=== PATIENT | female | born 1955 | race Caucasian/White ===

== ENCOUNTER → 2016-11-27 | Day surgery (SDC) | payer OTHER ==
[2016-11-20 11:20] VITALS: Ht 153.7 cm; Wt 116.4 kg
[~2016-11-27] VITALS: Ht 153.7 cm; Wt 116.4 kg
[~2016-11-27] MED LIST: AMLO-110 PO; CALC1CHW57 PO; CHOL1TAB46 PO; CHOL4POW11 PO; DTR/5 PO; FERR325T5 PO; FOLI1TAB7 PO; HYDR-4330 PO; IBUP-1050 PO; LIDOCAINE HCL 2% 2 ML VIAL (20MG/ML) ONE; MIDAZOLAM HCL 1 MG/ML 2ML VIAL ONE; MULT-506 PO; ONDANSETRON INJ 2 MG/ML 2 ML VIAL ONE; OXYB10TA13 PO; PANT40TA PO; PROPOFOL IV EMULSION 10 MG/ML 20 ML VIAL IV ONE; RMCI; SODIUM CHLORIDE 0.9% 500ML 500 ML IV ONE
[2016-11-27 11:21] VITALS: TEMP 37
--- NOTE | 2016-11-27 11:57 | Endo History and Physical ---
History & Physical Date of Service: November 27, 2016. Chief Complaint: CROHNS DISEASE Referring Physician: DR ELDER History of Present Illness 61 yo CF who presents for colonoscopy secondary to Crohn's Disease. Past Medical History Gastrointestinal Disorder, Reflux, Hypertension, Other Past Surgical History Hx Cardiac Surgery: No Hx Internal Defibrillator: No Hx Pacemaker: No Hx Abdominal Surgery: Yes (SUJATA, HERNIA REPAIR, GASTRIC BYPASS, HYSTER, TUBAL LIGATION) Hx of Implantable Prosthesis: No Hx Post-Op Nausea and Vomiting: No Hx Cancer Surgery: No Hx Thoracic Surgery: No Hx Orthopedic: No Hx Urinary Tract Surgery: Yes (KIDNEY STONE REMOVAL) Family History IBD Social History Smoking Status: Never Smoker Hx Substance Use: No Hx Alcohol Use: No Allergies Coded Allergies: Pneumococcal Vaccine (Verified Allergy, Severe, Severe swell/redness, 11/27) Cephalexin (Verified Allergy, Unknown, FROM [facility], 11/27/16) Was on Cephalexin concurrently when patient had severe swelling/redness when receiving Pneumococcal vaccine Current Medications Reported Home Medications Medications Dose Route/Sig Max Daily Dose Days Date Category Ditropan Xl (Oxybutynin Chloride) 10 Mg Tab 1 Tab PO DAILY 30 11/27/16 Reported Advil (Ibuprofen) 200 Mg Tab 2-4 Tabs PO Q6H PRN 11/20/16 Reported Protonix (Pantoprazole Sodium) 40 Mg Tab 40 Mg PO BID 11/20/16 Reported Vitamin D3 (Cholecalciferol) 5,000 Unit Tab 1 Tab PO QAM 11/21/14 Reported Multivitamin (Multivitamins) Tab 1 Tab PO QAM 11/21/14 Reported Lortab 5-325 mg (Hydrocodone-Acetaminophen) 1 Tab Tab 1 Tab PO Q8H PRN 11/21/14 Reported Ferrous Sulfate 325 Mg Tab 1 Tab PO QAM 11/21/14 Reported Calcium + D (Calcium W/ Vitamins D & K) 1 Chw Chw 1 Tab PO BID 11/21/14 Reported Norvasc (Amlodipine Besylate) 5 Mg Tab 5 Mg PO QAM 11/21/14 Reported Questran (Cholestyramine) 4 Gm Pow 1 Pkt PO QAM 11/21/14 Reported Remicade (Infliximab) 100 Mg/10 Ml Inj Q8WK 11/21/14 Reported Folvite (Folic Acid) 1 Mg Tab 1 Mg PO QAM 11/21/14 Reported Vital Signs Weight (Kilograms): 116.36 Height (Feet): 5 Height (Inches): 0.5 Date Time Temp Pulse Resp B/P Pulse Ox O2 Delivery O2 Flow Rate FiO2 11/27/16 11:21 37.0 75 18 131/73 95 Room Air Physical Exam General Appearance: WD/WN, no apparent distress Respiratory/Chest: Auscultation: breath sounds normal Cardiovascular: Heart Auscultation: RRR Abdomen: Bowel Sounds: normal Inspection & Palpation: soft, non-distended, no tenderness, guarding & rebound Assessment and Plan Assessment: 61 yo CF who presents for colonoscopy secondary to Crohn's Disease. Plan: Proceed with colonoscopy.
--- NOTE | 2016-11-27 12:46 | Discharge Instructions ---
Endoscopy Patient Instructions Date / Procedure(s) Performed November 27, 2016. Colonoscopy Allergy Information Coded Allergies: Pneumococcal Vaccine (Verified Allergy, Severe, Severe swell/redness, 11/27) Cephalexin (Verified Allergy, Unknown, FROM [facility], 11/27/16) Was on Cephalexin concurrently when patient had severe swelling/redness when receiving Pneumococcal vaccine Discharge Date / Findings November 27, 2016. Random colon biopsies Rectal polyp Diverticulosis Internal hemorrhoids Medication Instructions OK to resume all medications today as prescribed. Reported Home Medications Medications Dose Route/Sig Max Daily Dose Days Date Category Ditropan Xl (Oxybutynin Chloride) 10 Mg Tab 1 Tab PO DAILY 30 11/27/16 Reported Advil (Ibuprofen) 200 Mg Tab 2-4 Tabs PO Q6H PRN 11/20/16 Reported Protonix (Pantoprazole Sodium) 40 Mg Tab 40 Mg PO BID 11/20/16 Reported Vitamin D3 (Cholecalciferol) 5,000 Unit Tab 1 Tab PO QAM 11/21/14 Reported Multivitamin (Multivitamins) Tab 1 Tab PO QAM 11/21/14 Reported Lortab 5-325 mg (Hydrocodone-Acetaminophen) 1 Tab Tab 1 Tab PO Q8H PRN 11/21/14 Reported Ferrous Sulfate 325 Mg Tab 1 Tab PO QAM 11/21/14 Reported Calcium + D (Calcium W/ Vitamins D & K) 1 Chw Chw 1 Tab PO BID 11/21/14 Reported Norvasc (Amlodipine Besylate) 5 Mg Tab 5 Mg PO QAM 11/21/14 Reported Questran (Cholestyramine) 4 Gm Pow 1 Pkt PO QAM 11/21/14 Reported Remicade (Infliximab) 100 Mg/10 Ml Inj Q8WK 11/21/14 Reported Folvite (Folic Acid) 1 Mg Tab 1 Mg PO QAM 11/21/14 Reported Provider Instructions Activity Restrictions - No exercising or heavy lifting for 24 hours. - Do not drink alcohol the day of the procedure. - Do not drive a car or operate machinery until the day after the procedure. - Do not make any important decisions or sign important papers in 24 hours after the procedure. Following Day: - Return to full activity which may include returning to work/school. Diet Start your diet with liquids and light foods (jello, soup, juice, toast). Then eat your usual diet if not nauseated. Treatment For Common After Affects For mild abdominal pain, bloating, or excessive gas: - Rest - Eat lightly - Lie on right side Follow-Up Information Follow-up with DR ELDER as scheduled Anesthesia Information What You Should Know You have had a procedure that required some medicine to reduce anxiety and discomfort. This treatment is called moderate sedation. After receiving the treatment, you may be sleepy, but you will be able to breathe on your own. The effects of the treatment may last for several hours. Follow these instructions along with Activity/Diet recommendations noted above: * Do NOT do anything where dizziness or clumsiness would be dangerous. * Rest quietly at home today, then you can be up and about tomorrow. * Have a responsible person stay with you the rest of today. * You may have had an I.V. today. If so, you may take the dressing off later today. Recommendations Call your doctor if: * Trouble breathing * Continuous vomiting for more than 24 hours * Temperature above 101 degrees * Severe abdominal pain or bloating * Pain not relieved by pain medicine ordered * There is increased drainage or redness from any incision * A large amount of rectal bleeding greater than 2-3 tablespoons. (If you had a polyp/s removed or have hemorrhoids, a small amount of blood - from the rectum is to be expected.) * You have any unanswered questions or concerns. IN THE EVENT OF A SERIOUS EMERGENCY, GO TO THE NEAREST EMERGENCY ROOM Your discharge instructions were prepared by provider Abdulaziz Dubon. Patient Instructions Signature Page Audrey Martin Patient (or Guardian) Signature/Date: I have read and understand the instructions given to me by my caregivers. Caregiver/RN/Doctor Signature/Date: The above-named patient and/or guardian has received patient instructions on this date. + Original Patient Signature Page (only) stays with chart. Please make copy for patient.
--- NOTE | 2016-11-27 12:59 | GI REPORT ---
Procedure Date: 11/27/2016 12:05 PM Procedure: Colonoscopy Indications: Disease activity assessment of Crohn's disease of the colon Medicines: Monitored Anesthesia Care Complications: No immediate complications. Estimated Blood Loss: Estimated blood loss: none. Procedure: Pre-Anesthesia Assessment: - Prior to the procedure, a History and Physical was performed, and patient medications and allergies were reviewed. The patient's tolerance of previous anesthesia was also reviewed. The risks and benefits of the procedure and the sedation options and risks were discussed with the patient. All questions were answered, and informed consent was obtained. Prior Anticoagulants: The patient has taken no previous anticoagulant or antiplatelet agents. ASA Grade Assessment: II - A patient with mild systemic disease. After reviewing the risks and benefits, the patient was deemed in satisfactory condition to undergo the procedure. After I obtained informed consent, the scope was passed under direct vision. Throughout the procedure, the patient's blood pressure, pulse, and oxygen saturations were monitored continuously. The scope was introduced through the anus and advanced to the terminal ileum. The colonoscopy was performed without difficulty. The patient tolerated the procedure well. The quality of the bowel preparation was good. The terminal ileum, ileocecal valve, appendiceal orifice, and rectum were photographed. Findings: A 5 mm polyp was found in the rectum. The polyp was sessile. The polyp was removed with a hot snare. Resection and retrieval were complete. Several random biopsies were obtained with cold forceps for histology in the entire colon. Multiple small-mouthed diverticula were found in the sigmoid colon. Non-bleeding internal hemorrhoids were found during retroflexion. The hemorrhoids were small. Impression: - One 5 mm polyp in the rectum, removed with a hot snare. Resected and retrieved. - Diverticulosis in the sigmoid colon. - Non-bleeding internal hemorrhoids. - Several random biopsies were obtained in the entire colon. Recommendation: - Resume previous diet. - Continue present medications. - Repeat colonoscopy for surveillance based on pathology results. - Return to primary care physician as previously scheduled. Abdulaziz Dubon DO 11/27/2016 12:58:00 PM This report has been signed electronically. Note Initiated On: 11/27/2016 12:05 PM I attest to the content of the Intraoperative Record and orders documented therein, exceptions below
[2016-11-27 13:15] VITALS: BP 119/73; PULSE 61; O2SAT 99
--- NOTE | 2016-11-27 13:43 | Anesthesiology Progress Note ---
Anesthesia Post Op Note Date & Time November 27, 2016 at 13:43 Vital Signs Pain Intensity: 0 Vital Signs Past 12 Hours Date Time Temp Pulse Resp B/P Pulse Ox O2 Delivery O2 Flow Rate FiO2 11/27/16 13:15 61 20 119/73 99 Room Air 11/27/16 12:59 65 18 124/63 97 Room Air 11/27/16 12:44 73 18 123/67 98 Room Air 11/27/16 11:21 37.0 75 18 131/73 95 Room Air Notes Mental Status: alert / awake / arousable, participated in evaluation Pt Amnestic to Procedure: Yes Nausea / Vomiting: adequately controlled Pain: adequately controlled Airway Patency, RR, SpO2: stable & adequate BP & HR: stable & adequate Hydration State: stable & adequate Anesthetic Complications: no major complications apparent
== END | disposition home or self-care (01) ==
LOC: C.GI 10:53
PROVIDERS: ATTEND Internal Medicine
DX: K50.90 Crohn's disease, unspecified, without complications (principal); D12.8 Benign neoplasm of rectum; I10 Essential (primary) hypertension; K57.90 Diverticulosis of intestine, part unspecified, without perforation or abscess without bleeding; R58 Hemorrhage, not elsewhere classified; Z98.890 Other specified postprocedural states

== ENCOUNTER 2019-12-25 11:01 | Inpatient (IN) ==
[2019-12-25] MEDS ORDERED: ONDANSETRON INJ 2 MG/ML 2 ML VIAL IV STA (12:32)
[2019-12-25] MEDS ORDERED: CLINDAMYCIN 900 MG in DEXTROSE 5% 50 ML IV ONE (12:32)
[2019-12-25] MEDS ORDERED: MoRPHine SULFATE 4 MG/ML 1 ML CARP\\VIAL IV PRN (12:32)
[2019-12-25] MEDS ORDERED: SODIUM CHLORIDE 0.9% 1000ML 1,000 ML IV ONE (12:32)
--- NOTE | 2019-12-25 12:51 | Emergency Department Note ---
Impression & Plan Bowel perforation, Diffuse abdominal pain, Leukocytosis, Acute dehydration, Hypokalemia ED Provider Note NAME: LEO PUGH AGE: 64 SEX: F : 1955 ARRIVES VIA: Walk-In INFORMANT: [Patient] ED PROVIDER(S): [Ignacio Mcgiure MD] CHIEF COMPLAINT: Abdominal pain HISTORY OF PRESENT ILLNESS: The patient is a 64-year-old female who presents with 24 hours of lower abdo bigg pain. The pain is severe and constant. Movement makes the pain worse. There has been no fever, no nausea or vomiting. No diarrhea. The patient had a colonoscopy on Wednesday, 5 days ago. She states that yesterday she began having pain. She went to the [facility] ED and was diagnosed with a bowel perforation. Her white blood cell count was around 9. They recommended surgery and potential colostomy placement. The patient did not want this care at that hospital and she left. She presents here today for advice from her doctors that she has a relationship with. She has continued pain. She states the pain is no better or worse than yesterday. REVIEW OF SYSTEMS: See HPI for pertinent positives and negatives. A total of ten systems were reviewed and were otherwise negative. PMHx/PSHx: See Below SOCIAL HISTORY: See Below. PHYSICAL EXAM: GENERAL: Patient is in moderate distress from pain. HEENT: No acute trauma, normocephalic atraumatic, mucous membranes moist, no nasal congestion, no scleral icterus. NECK: No stridor, no adenopathy, no meningismus, trachea is midline. LUNGS: Clear to auscultation bilaterally, no wheeze, no rhonchi, breath sounds equal. HEART: Without murmurs gallops or rubs, regular rate and rhythm. ABDOMEN: Soft, she does have significant tenderness and I do believe peritonitis. There is no abdominal distention, no obvious hernias. EXTREMITIES: No cyanosis or edema, full range of motion of all the joints without pain or difficulty, no signs for acute trauma. NEUROLOGIC: Oriented x 3, no acute motor or sensory deficits, no focal weakness. SKIN: No rash, no jaundice, no diaphoresis. DIFFERENTIAL DIAGNOSIS: Appendicitis, ovarian cyst, ovarian torsion, infections, bowel perforation, diverticulitis, UTI, obstruction, mesenteric ischemia, aortic pathology, inflammatory bowel disease, renal colic, PUD, pancreatitis, biliary pathology, hernia, volvulus, constipation, as well as other pathologies. EMERGENCY DEPARTMENT COURSE/PROCEDURES: ECG: Indication was abdominal pain. The ECG shows a sinus rhythm with a PVC. The rate is 92. The QTc is 477. LVH is present. There is no ST elevation. Continuous Cardiac Monitoring: An order was placed for continuous cardiac monitoring. The monitor shows a rate of 91 with sinus rhythm with some PVCs. Critical Care Note: I have personally spent greater than 38 minutes of critical care time in the direct management of this patient. This includes bedside care, interpretation of diagnostic studies, and testing, discussion with consultants, patient, and family members, and other required patient management activities. This 38 minutes is in excess of all separately billable procedures. MEDICAL DECISION MAKING: There is a moderate leukocytosis, this would be consistent with infection. No anemia. Potassium is somewhat low at 2.9. There is some evidence for acute kidney injury with a creatinine of 1.60, this elevation is likely consistent with dehydration. There is no liver enzyme elevation. No evidence for pancreatitis. EKG shows a sinus rhythm, no acute ischemia. Cardiac enzyme testing x1 is not consistent with acute cardiac injury. Chest film shows some atelectasis, there was no obvious free air, no pneumonia. On exam, the patient did have findings of peritonitis. I was able to review the CT reading from yesterday that was done at the outside hospital. Free intra-abdominal air was seen. The patient was aggressively managed given her findings and exam. She was given IV saline for hydration, 1 L was given. She received IV potassium. She was given IV Zofran for nausea, she received IV morphine for pain. She was given a dose of IV clindamycin as empiric antibiotic coverage. The patient is in need of hospitalization and likely surgery. I did speak with GI, I spoke with general surgery. The patient is being evaluated, she will be hospitalized. She is aware of her findings. Case management has been involved. At this point, it is unclear whether the free air is a result of the recent colonoscopy or a result of a perforated diverticulum. Past Med/Surg History Medical History Crohns disease Degenerative disc disease History of anesthesia reaction difficulty waking History of kidney stones Hypertension Osteoarthritis Sleep apnea has testing done 12/12/2019--awaiting results Surgical History History of bilateral cataract extraction History of bilateral tubal ligation History of cholecystectomy History of colonoscopy with polypectomy History of cystoscopy History of nasal cauterization History of Staci fundoplication with hernia repair History of total vaginal hysterectomy Status post trigger finger release right hand Family History Sister Family history of diabetes mellitus Other No family history of adverse response to anesthesia Social History Preferred Language: Ukrainian Communication Ability: Effective Mask Layout Designer Required: No Beliefs That Will Affect Care: None Current Living Situation: Spouse Other Information That Helps Us Care for You: No Feels Safe at Home: Yes Safety Concerns: Feels Safe At This Time Smoking Status: Never smoker Second Hand Exposure: Yes (parents smoked/ smoked) ; Hx Alcohol Use: No Hx Substance Use: No Allergies Allergies Allergy/AdvReac Type Severity Reaction Status Date / Time pneumococcal vaccine Allergy Severe Severe Verified 12/25/19 12:53 swell/redness cephalexin Allergy Intermediate Diarrhea Verified 12/25/19 12:53 Home Meds Home Medications Medication Instructions Recorded Confirmed amlodipine 5 mg tablet 5 mg PO QAM tab 03/21/19 12/25/19 cholecalciferol (vitamin D3) 125 5,000 unit PO QAM tab 03/21/19 12/25/19 mcg (5,000 unit) tablet ferrous sulfate 325 mg (65 mg 325 mg PO QAM tab 03/21/19 12/25/19 iron) tablet folic acid 1 mg tablet 1 mg PO QAM #30 tab 03/21/19 12/25/19 hydrocodone 5 mg-acetaminophen 325 1 tab PO Q8 PRN tab 03/21/19 12/25/19 mg tablet multivitamin 1 tab PO QAM 03/21/19 12/25/19 pantoprazole 40 mg tablet,delayed 40 mg PO BID #60 tab 03/21/19 12/25/19 release infliximab 100 mg intravenous 10 mg/kg IV Q8WK ea 05/15/19 12/25/19 solution Calcium 600 + D(3) 1 cap PO BID 12/13/19 12/25/19 Gentamycin 1 dose INTRANASAL QAM 12/13/19 12/25/19 Toviaz 8 mg PO QAM 12/13/19 12/25/19 cholestyramine (with sugar) 4 g PO QAM 12/13/19 12/25/19 cranberry extract-vitamin C 1 cap PO QAM 12/13/19 12/25/19 mirabegron 50 mg PO QPM 12/13/19 12/25/19 valacyclovir [Valtrex] 1,000 mg PO UD PRN 12/13/19 12/25/19 Results & Data (ED) Vital Signs Vital Signs - 24 hr 12/25/19 11:26 12/25/19 11:36 12/25/19 13:29 Temperature 37.0 C Temperature Source Oral Pulse Rate 95 H Pulse Rate [Finger] 95 H 93 H Pulse Strength [Finger] Respiratory Rate 20 24 17 Respiratory Effort / Characteristics Respiratory Depth Respiratory Pattern Blood Pressure 103/63 Blood Pressure [Right Arm] 129/76 138/69 Blood Pressure Mean 76 Blood Pressure Mean [Right Arm] 93 92 Blood Pressure Position [Right Arm] Pulse Oximetry 95 95 95 Oxygen Delivery Method Room Air Room Air Room Air Sepsis Recent Fever Within 48 Hours No Sepsis New/Unexplained Change in Mental Status No Sepsis Action Taken by Nursing No Action Required 12/25/19 14:34 12/25/19 14:42 Temperature 36.9 C Temperature Source Oral Pulse Rate 94 H Pulse Rate [Finger] 97 H Pulse Strength [Finger] Normal Respiratory Rate 20 20 Respiratory Effort / Characteristics Non-Labored Spontaneous Respiratory Depth Normal Respiratory Pattern Regular Blood Pressure 128/68 Blood Pressure [Right Arm] 132/70 Blood Pressure Mean Blood Pressure Mean [Right Arm] 90 Blood Pressure Position [Right Arm] Lying Pulse Oximetry 93 95 Oxygen Delivery Method Room Air Room Air Sepsis Recent Fever Within 48 Hours Sepsis New/Unexplained Change in Mental Status Sepsis Action Taken by Detention Medications Current Medication List: was personally reviewed by me Laboratory Data Attestation: I reviewed the patient's lab results. Result diagrams: 12/25/19 13:10 12/25/19 13:10 Lab Results 12/25/19 12/25/19 Range/Units 13:10 13:10 WBC 14.75 H (4.8-10.8) K/uL RBC 4.38 (4.2-5.4) M/uL Hgb 13.2 (12.0-16.0) g/dL Hct 39.4 (37-47) % MCV 90.0 (80-100) fL MCH 30.1 (25-34) pg MCHC 33.5 (32-36) g/dL RDW Std Deviation 41.6 (36.4-46.3) fL RDW Coeff of Kody 12.8 (11.5-14.5) % Plt Count 229 (130-400) K/uL MPV 10.0 (7.4-10.4) fL Immature Gran % (Auto) 0.5 % Neut % (Auto) 86.8 % Lymph % (Auto) 7.3 % Maries % (Auto) 5.2 % Eos % (Auto) 0.1 % Baso % (Auto) 0.1 % Immature Gran # (Auto) 0.08 H (0.00-0.02) K/uL Neut # (Auto) 12.81 H (1.4-6.5) K/uL Lymph # (Auto) 1.07 L (1.2-3.4) K/uL Maries # (Auto) 0.76 H (0.11-0.59) K/uL Eos # (Auto) 0.01 (0-0.5) K/uL Baso # (Auto) 0.02 (0-0.2) K/uL Sodium 140 (136-145) mmol/L Potassium 2.9 L (3.5-5.1) mmol/L Chloride 104 (98-107) mmol/L Carbon Dioxide 26 (21-32) mmol/L Anion Gap 10.0 (3-11) BUN 29 H (7-18) mg/dl Creatinine 1.60 H (0.6-1.2) mg/dl Est Cr Clr Drug Dosing 31.3 ml/min Est GFR ( Amer) 39.1 Est GFR (Non-Af Amer) 33.7 BUN/Creatinine Ratio 18.2 (10-20) Glucose 116 H (70-99) mg/dl Calcium 8.8 (8.5-10.1) mg/dl Total Bilirubin 0.9 (0.2-1) mg/dl AST 25 (15-37) U/L ALT 35 (12-78) U/L Alkaline Phosphatase 81 (45-117) U/L Troponin I < 0.015 (0-0.045) ng/ml Total Protein 7.9 (6.4-8.2) gm/dl Albumin 3.2 L (3.4-5.0) gm/dl Globulin 4.7 H (2.5-4.0) gm/dl Albumin/Globulin Ratio 0.7 L (0.9-2) Lipase 72 L (73-393) U/L Administered Medications Lactated Ringer's (Lr) 1,000 mls @ 125 mls/hr IV .Q8H NANCY Stop: 01/24/20 19:59 Last Admin: 12/25/19 20:12 Dose: 125 mls/hr Documented by: [id number] Sodium Chloride (Nss 1000ml) 1,000 mls @ 15 mls/hr IV .Q24H NANCY Stop: 01/08/20 19:59 Last Admin: 12/25/19 20:12 Dose: Not Given Documented by: [id number] Morphine Sulfate () 30 mg IV PRN PRN; Protocol PRN Reason: APPLIQUER ZIGZAG Pain Titration Stop: 01/08/20 18:41 Last Admin: 12/25/19 20:13 Dose: 30 mg Documented by: [id number] Cosigned by: [id number] Discontinued Medications Bupivacaine HCl (Marcaine 0.5% Mpf) Confirm Administered Dose 30 ml .ROUTE .STK- MED ONE Stop: 12/25/19 14:13 Last Admin: 12/25/19 16:48 Dose: Not Given Documented by: [id number] Sodium Chloride (Nss 1000ml) 1,000 mls @ 999 mls/hr IV .Q1H1M ONE Stop: 12/25/19 13:32 Last Admin: 12/25/19 13:15 Dose: 999 mls/hr Documented by: [id number] Clindamycin Phosphate 900 mg/ (Dextrose) 56 mls @ 112 mls/hr IV ONE ONE Stop: 12/25/19 13:01 Last Infusion: 12/25/19 13:46 Dose: 0 mls/hr Documented by: [id number] Admin: 12/25/19 13:15 Dose: 112 mls/hr Documented by: [id number] Potassium Chloride (K Bishnu / Wtr) 10 meq in 100 mls @ 100 mls/hr IV ONE ONE Stop: 12/25/19 14:58 Last Admin: 12/25/19 14:33 Dose: 100 mls/hr Documented by: [id number] Meperidine HCl (Demerol) 25 mg IV NOW STA Stop: 12/25/19 17:27 Last Admin: 12/25/19 17:28 Dose: 25 mg Documented by: [id number] Meperidine HCl (Demerol) Confirm Administered Dose 25 mg .ROUTE .STK-MED ONE Stop: 12/25/19 17:27 Last Admin: 12/25/19 19:06 Dose: Not Given Documented by: [id number] Morphine Sulfate (Morphine Sulfate) 4 mg IV Q15M PRN PRN Reason: Pain Stop: 01/08/20 12:31 Last Admin: 12/25/19 13:27 Dose: 4 mg Documented by: [id number] Ondansetron HCl (Zofran) 4 mg IV NOW STA Stop: 12/25/19 12:33 Last Admin: 12/25/19 13:28 Dose: 4 mg Documented by: [id number] Imaging Data Radiologist's Impression: SINGLE VIEW CHEST CLINICAL HISTORY: Generalized abdominal pain. Assess for intraperitoneal free air FINDINGS: An AP, portable, upright chest radiograph is obtained. No prior studies are available for comparison at the time of dictation. The examination is degraded by portable technique and patient rotation. The cardiomediastinal silhouette is unremarkable. Linear opacities are present at the lung bases, right greater than left. No large pleural effusion or pneumothorax is seen. The skeletal structures are osteopenic. The bony thorax is grossly intact. There is no evidence of intraperitoneal free air below the diaphragm. Cholecystectomy clips are noted in the right upper quadrant. IMPRESSION: Linear opacities are present at the lung bases and likely represent atelectasis. Clinical correlation will be required. Blood Pressure Blood Pressure Findings: Elevated blood pressure Blood Pressure Disposition: further management by hospitalist Discharge Plan Visit Data *Final* Discharge Date/Time: 12/25/19 14:42 Chief Complaint: Referred by Doctor Stated Complaint: COLONOSCOPY COMPLICATIONS - DR CASE REF ED Provider: Ignacio Mcguire Discharge Problem: Bowel perforation, Diffuse abdominal pain, Leukocytosis, Acute dehydration, Hypokalemia Patient Disposition: Admitted As Inpatient Condition: Serious Discharge Instructions Interventions: ED Discharge Assessment Last Done: 12/25/19 14:42 Discharge Problem: Leukocytosis Qualifiers: Leukocytosis type: unspecified Qualified Code(s): D72.829 - Elevated white blood cell count, unspecified
--- NOTE | 2019-12-25 13:05 | History & Physical Report ---
Date of Service December 25, 2019 Assessment & Plan (1) Pneumoperitoneum: Recent colonoscopy but was doing well, ? possible diverticular perforation. Reviewed outside CT with radiology. Given exam findings and increasing WBC, will plan for exploratory laparotomy with likely sigmoid resection and colostomy. History of Present Illness Primary Care Provider: Dara Trejo, DO 64 y/o female h/o Crohn's had screening colonoscopy Tuesday 12/[address] Dubon. She felt fine until Wednesday when she started having abdominal pain. She was eating normally, was having BMs, and had loose BM this AM. She was seen in [place] ED last evening where CT showed free air and she was told she would need surgery with permanent colostomy. She was afraid of that, and wanted to discuss the situation with Dr. Dubon and so she came here to the ED today. Allergies Allergy/AdvReac Type Severity Reaction Status Date / Time pneumococcal vaccine Allergy Severe Severe Verified 12/25/19 12:53 swell/redness cephalexin Allergy Intermediate Diarrhea Verified 12/25/19 12:53 Home Medications Home Medications Medication Instructions Recorded Confirmed Type amlodipine 5 mg tablet 5 mg PO QAM tab 03/21/19 12/25/19 History cholecalciferol (vitamin D3) 125 5,000 unit PO QAM tab 03/21/19 12/25/19 History mcg (5,000 unit) tablet ferrous sulfate 325 mg (65 mg 325 mg PO QAM tab 03/21/19 12/25/19 History iron) tablet folic acid 1 mg tablet 1 mg PO QAM #30 tab 03/21/19 12/25/19 History hydrocodone 5 mg-acetaminophen 325 1 tab PO Q8 PRN tab 03/21/19 12/25/19 History mg tablet multivitamin 1 tab PO QAM 03/21/19 12/25/19 History pantoprazole 40 mg tablet,delayed 40 mg PO BID #60 tab 03/21/19 12/25/19 History release infliximab 100 mg intravenous 10 mg/kg IV Q8WK ea 05/15/19 12/25/19 History solution Calcium 600 + D(3) 1 cap PO BID 12/13/19 12/25/19 History Gentamycin 1 dose INTRANASAL QAM 12/13/19 12/25/19 History Toviaz 8 mg PO QAM 12/13/19 12/25/19 History cholestyramine (with sugar) 4 g PO QAM 12/13/19 12/25/19 History cranberry extract-vitamin C 1 cap PO QAM 12/13/19 12/25/19 History mirabegron 50 mg PO QPM 12/13/19 12/25/19 History valacyclovir [Valtrex] 1,000 mg PO UD PRN 12/13/19 12/25/19 History Past Med/Surg History Medical History Crohns disease Degenerative disc disease History of anesthesia reaction difficulty waking History of kidney stones Hypertension Osteoarthritis Sleep apnea has testing done 12/12/2019--awaiting results Surgical History History of bilateral cataract extraction History of bilateral tubal ligation History of cholecystectomy History of colonoscopy with polypectomy History of cystoscopy History of nasal cauterization History of Staci fundoplication with hernia repair History of total vaginal hysterectomy Status post trigger finger release right hand Family History Sister Family history of diabetes mellitus Other No family history of adverse response to anesthesia Social History Preferred Language: Colombian Communication Ability: Effective Pharmacy Technician Required: No Beliefs That Will Affect Care: None Current Living Situation: Spouse Feels Safe at Home: Yes Smoking Status: Never smoker Second Hand Exposure: Yes (parents smoked/ smoked) ; Hx Alcohol Use: No Hx Substance Use: No Review of Systems Constitutional: no fever, no chills and no anorexia Gastrointestinal: + abdominal pain, + nausea and + vomiting (yesterday) Physical Exam Constitutional: + acute distress Respiratory: normal respiratory effort, lungs clear to auscultation Cardiovascular: Rate/Rhythm: regular rhythm and + tachycardic Gastrointestinal (Abdomen): Inspection/Auscultation: + abdominal surgical scar (laparoscopy) Percussion/Palpation: + abdomen tender, + guarding and abdomen soft Results & Data Results & Data ([facility]) Vital Signs (Past 12 Hours) Vital Signs Temp Pulse Pulse Resp BP BP Pulse Ox 12/25/19 11:36 95 H 24 129/76 95 12/25/19 11:26 37.0 C 95 H 20 103/63 95 Supervising Physician Co-Signing Physician Notes 64-year-old female last Wednesday had colonoscopy without any issues yesterday experience some acute onset abdominal pain was seen down the emergency room at [facility] free air was identified they recommended admission and surgery possible colostomy the patient was afraid of having surgery apparently she related that they told her to call the plaster form maker which he did and the on-call plaster form maker recommended that she call Dr. Dubon which she did and apparently she came into the emergency room today feeling more abdominal pain. On examination she has an acute abdomen generalized tenderness barely touch lower abdomen The CAT scan that was done in [facility] was reviewed it is likely that this is a diverticular problem there is no free air in the upper abdomen and with this in mind we will proceed with exploratory lap and colostomy bowel resection Patient is agreeable to this risk and complications were explained to her including bleeding infection and she would like to proceed accordingly Of note the colonoscopy biopsies which were taken did not show any acute inflammatory bowel disease most of the terminal ileum and the colon PG Care Time/CCT Total # of Minutes Spent Total Time Spent with Patient: Total time spent is greater than 50% in coordination of care (as documented) at patient's floor/unit and/or counseling patient: Coding Level of Care Code None Diagnoses Pneumoperitoneum K66.8
--- NOTE | 2019-12-25 13:09 | XRay Report ---
SINGLE VIEW CHEST CLINICAL HISTORY: Generalized abdominal pain. Assess for intraperitoneal free air FINDINGS: An AP, portable, upright chest radiograph is obtained. No prior studies are available for c omparison at the time of dictation. The examination is degraded by portable technique and patient ro tation. The cardiomediastinal silhouette is unremarkable. Linear opacities are present at the lung b ases, right greater than left. No large pleural effusion or pneumothorax is seen. The skeletal struct ures are osteopenic. The bony thorax is grossly intact. There is no evidence of intraperitoneal free air below the diaphragm. Cholecystectomy clips are noted in the right upper quadrant. IMPRESSION: Linear opacities are present at the lung bases and likely represent atelectasis. Clinical correlation will be required. ACT 112: Negative or not required by law. Electronically signed by: Ignacio Askew M.D. 12/25/2019 1:07 PM
[2019-12-25 13:29] LABS: Basophils # (auto) 0.02 K/uL (0-0.2); Basophils % (auto) 0.1 %; Eosinophils # (auto) 0.01 K/uL (0-0.5); Eosinophils % (auto) 0.1 %; Hematocrit (blood only) 39.4 % (37-47); Hemoglobin 13.2 g/dL (12.0-16.0); Immature Granulocytes # (auto) 0.08 K/uL (0.00-0.02); Immature Granulocytes % (auto) 0.5 %; Lymphocytes # (auto) 1.07 K/uL (1.2-3.4); Lymphocytes % (auto) 7.3 %; Mean Corpuscular Hemoglobin 30.1 pg (25-34); Mean Corpuscular Hgb Conc 33.5 g/dL (32-36); Monocytes # (auto) 0.76 K/uL (0.11-0.59); Monocytes % (auto) 5.2 %; Neutrophils # (auto) 12.81 K/uL (1.4-6.5); Neutrophils % (auto) 86.8 %; Platelet Count 229 K/uL (130-400); RDW Coefficient of Variation 12.8 % (11.5-14.5); RDW Standard Deviation 41.6 fL (36.4-46.3); Red Blood Count 4.38 M/uL (4.2-5.4); White Blood Count 14.75 K/uL (4.8-10.8)
[2019-12-25 13:44] LABS: Alanine Aminotransferase 35 U/L (12-78); Albumin Level 3.2 gm/dl (3.4-5.0); Aspartate Aminotransferase 25 U/L (15-37); BUN Creatinine Ratio 18.2 (10-20); Blood Urea Nitrogen 29 mg/dl (7-18); Calcium 8.8 mg/dl (8.5-10.1); Carbon Dioxide 26 mmol/L (21-32); Chloride 104 mmol/L (98-107); Creatinine Clr Calc Pharmacy 31.3 ml/min; Est GFR (African American) 39.1; Est GFR (Non-African American) 33.7; Glucose 116 mg/dl (70-99); Lipase 72 U/L (73-393); Potassium 2.9 mmol/L (3.5-5.1); Sodium 140 mmol/L (136-145)
[2019-12-25 13:49] LABS: Albumin Globulin Ratio 0.7 (0.9-2); Alkaline Phosphatase 81 U/L (45-117); Bilirubin,Total 0.9 mg/dl (0.2-1); Globulin 4.7 gm/dl (2.5-4.0); Total Protein 7.9 gm/dl (6.4-8.2); Troponin I < 0.015 ng/ml (0-0.045)
[2019-12-25] MEDS ORDERED: PROPOFOL IV EMULSION 10 MG/ML 20 ML VIAL IV ONE (13:55)
[2019-12-25] MEDS ORDERED: fentaNYL citrate 100 MCG/2 ML VIAL ONE (13:55)
[2019-12-25] MEDS ORDERED: ONDANSETRON INJ 2 MG/ML 2 ML VIAL ONE (13:55)
[2019-12-25] MEDS ORDERED: DEXAMETHASONE SOD INJ 4 MG/ML VIAL ONE (13:55)
[2019-12-25] MEDS ORDERED: ROCURONIUM BROMIDE 10 MG/ML 5 ML VIAL IV ONE (13:55)
[2019-12-25] MEDS ORDERED: LIDOCAINE HCL 2% 2 ML VIAL/AMP(20MG/ML) INFIL ONE (13:55)
[2019-12-25] MEDS ORDERED: MIDAZOLAM HCL 1 MG/ML 2ML VIAL ONE (13:55)
[2019-12-25] MEDS ORDERED: POTASSIUM CHLORIDE / WTR 10 MEQ/100 ML PLCT IV ONE (13:59)
--- NOTE | 2019-12-25 14:04 | Anesthesiology Consultation ---
Date of Service December 25, 2019 Covid test negative from Assessment & Plan (1) Encounter for pre-operative examination: History Surgery Operation Date: 12/25/19 08:50 Proposed Procedures p Exploratory Laparotomy possible Colostomy - Alberto Beckham MD Height/Weight Height: 5 ft Weight: 71.4 kg Allergies Allergy/AdvReac Type Severity Reaction Status Date / Time pneumococcal vaccine Allergy Severe Severe Verified 12/25/19 12:53 swell/redness cephalexin Allergy Intermediate Diarrhea Verified 12/25/19 12:53 Medications Home Medications Medication Instructions Recorded Confirmed Last Taken amlodipine 5 mg tablet 5 mg PO QAM tab 03/21/19 12/25/19 12/23/19 cholecalciferol (vitamin D3) 125 5,000 unit PO QAM tab 03/21/19 12/25/19 12/23/19 mcg (5,000 unit) tablet ferrous sulfate 325 mg (65 mg 325 mg PO QAM tab 03/21/19 12/25/19 12/23/19 iron) tablet folic acid 1 mg tablet 1 mg PO QAM #30 tab 03/21/19 12/25/19 12/23/19 hydrocodone 5 mg-acetaminophen 325 1 tab PO Q8 PRN tab 03/21/19 12/25/19 Unknown mg tablet multivitamin 1 tab PO QAM 03/21/19 12/25/19 12/23/19 pantoprazole 40 mg tablet,delayed 40 mg PO BID #60 tab 03/21/19 12/25/19 12/23/19 release infliximab 100 mg intravenous 10 mg/kg IV Q8WK ea 05/15/19 12/25/19 10/20/19 solution Calcium 600 + D(3) 1 cap PO BID 12/13/19 12/25/19 12/23/19 Gentamycin 1 dose INTRANASAL QAM 12/13/19 12/25/19 12/23/19 Toviaz 8 mg PO QAM 12/13/19 12/25/19 12/23/19 cholestyramine (with sugar) 4 g PO QAM 12/13/19 12/25/19 12/23/19 cranberry extract-vitamin C 1 cap PO QAM 12/13/19 12/25/19 12/23/19 mirabegron 50 mg PO QPM 0612/25/19 12/23/19 valacyclovir [Valtrex] 1,000 mg PO UD PRN 12/13/19 12/25/19 12/23/19 Active Medications Generic Name Dose Route Start Last Admin Trade Name Freq PRN Reason Stop Dose Admin Potassium Chloride 10 meq in 100 mls @ 100 mls/hr 12/25/19 13:59 12/25/19 14:33 K Bishnu / Wtr IV 12/25/19 14:58 100 mls/hr ONE ONE Administration Morphine Sulfate 4 mg 12/25/19 12:32 12/25/19 13:27 Morphine Sulfate IV 01/08/20 12:31 4 mg Q15M PRN Administration Pain Past Medical History Medical History Crohns disease Degenerative disc disease History of anesthesia reaction difficulty waking History of kidney stones Hypertension Osteoarthritis Sleep apnea has testing done 12/12/2019--awaiting results Past Family History Family History Sister Family history of diabetes mellitus Other No family history of adverse response to anesthesia Past Surgical History Surgical History History of bilateral cataract extraction History of bilateral tubal ligation History of cholecystectomy History of colonoscopy with polypectomy History of cystoscopy History of nasal cauterization History of Staci fundoplication with hernia repair History of total vaginal hysterectomy Status post trigger finger release right hand Social History Smoking Status: Never smoker Hx Alcohol Use: No Hx Substance Use: No substance use type: does not use Physical Exam Vital Signs Last Vital Signs Temp 36.9 C 12/25/19 14:34 Pulse 97 H 12/25/19 14:34 Resp 20 12/25/19 14:34 BP 132/70 12/25/19 14:34 Pulse Ox 93 12/25/19 14:34 Testing Laboratory Results 12/25/19 13:10 12/25/19 13:10 Electrocardiogram Date: 12/25/19 Sinus rhythm with occasional Premature ventricular complexes Possible Left atrial enlargement Left ventricular hypertrophy Nonspecific T wave abnormality Abnormal ECG No previous ECGs available Chest X-Ray Date: 12/25/19 Linear opacities are present at the lung bases and likely represent atelectasis. Clinical correlation will be required.
[2019-12-25] MEDS ORDERED: BUPIVACAINE 0.5 % 5 MG/1 ML MPF 30ML VIAL ONE (14:12)
[2019-12-25] MEDS ORDERED: fentaNYL citrate 100 MCG/2 ML VIAL IV PRN (14:41)
[2019-12-25] MEDS ORDERED: HYDROmorphone INJ 1 MG/ML SYRINGE IV PRN (14:41)
[2019-12-25] MEDS ORDERED: ePHEDrine sulfate 50 MG/ML AMP IV PRN (14:41)
[2019-12-25] MEDS ORDERED: ONDANSETRON INJ 2 MG/ML 2 ML VIAL IV PRN (14:41)
[2019-12-25] MEDS ORDERED: ATROPINE SULFATE 0.1 MG/ML 10ML SYR IV PRN (14:41)
--- NOTE | 2019-12-25 15:34 | Electrocardiogram Report ---
Test Reason : Blood Pressure : / mmHG Vent. Rate : 092 BPM Atrial Rate : 092 BPM P-R Int : 126 ms QRS Dur : 094 ms QT Int : 386 ms P-R-T Axes : 030 -20 -04 degrees QTc Int : 477 ms Sinus rhythm with occasional Premature ventricular complexes Possible Left atrial enlargement Left ventricular hypertrophy Nonspecific T wave abnormality Poor R wave progression, consider anterior OH vs. lead placement vs. LVH Abnormal ECG No previous ECGs available Confirmed by Jeramie Canas ([id number]) on 12/25/2019 3:34:09 PM Referred By: Abdulaziz Case Confirmed By:Rickie Canas
--- NOTE | 2019-12-25 16:44 | Post Operative Brief Note ---
PG Immediate Post Op with CF Date of Surgery December 25, 2019 Pre & Post Diagnosis Operation Date: 12/25/19 08:50 Pre-Op Diagnosis: Pneumoperitoneum Post-Op Diagnosis: Pneumoperitoneum I identified the patient and participated in the time-out.: Yes Procedure Operation Date: 12/25/19 08:50 Actual Procedures p Exploratory Laparotomy; open Resection of Sigmoid Colon; creation of colostomy(Not Applicable) - Alberto Beckham MD Surgeon Alberto Beckham MD Organizational Development Director b Kassie tovar Estimated Blood Loss 150 Findings Consistent with Post-Op Diagnosis Specimens Specimen Description: Culture 1. Urine for culture 2. Peritoneal fluid for culture Permanent Specimen: A: Sigmoid Colon: silk is possible site of perforation Drains Pastor Drain ([id number]), Kamara Catheter and Chandler Drain
--- NOTE | 2019-12-25 17:01 | Operative Report ---
PG Post Operative Report Pre & Post Diagnosis Operation Date: 12/25/19 08:50 Pre-Op Diagnosis: Pneumoperitoneum Post-Op Diagnosis: Pneumoperitoneum I identified the patient and participated in the time-out.: Yes Procedure Operation Date: 12/25/19 08:50 Actual Procedures p Exploratory Laparotomy; open Resection of Sigmoid Colon; creation of colostomy(Not Applicable) - Alberto Beckham MD Patient was brought into the operating room theater general endotracheal anesthesia Kamara catheter was inserted the abdomen was prepped Betadine solution properly draped a timeout was had patient was identified we made a midline incision below the umbilicus deepened through subcutaneous tissue the incision went to this almost to the symphysis pubis we entered the peritoneal cavity we were met with the sigmoid colon which there was no gross contamination no free fluid that was appreciated going into the abdomen at this point we palpated the sigmoid colon and done in the gutter below the white line of Toldt there is seem to be exudate along in that area going down towards the pelvis the similarly exudate was on top of the sigmoid colon extending to an area that it feels quite inflamed with placed the Bookwalter retraction to expose the area more and we can palpate all the way down the pelvis and towards the rectal area which she had a redundant sigmoid colon we were able then to bring this all up into the wound and inspect the sigmoid colon which was quite indurated in the midportion which reflected the area that was adherent most likely to the lateral peritoneal wall just proximal to the pelvic inlet I could not see any perforation per se there was this fibrin exudate multiple areas I tried squeezing the sigmoid colon nothing really came out there I suspected the possibility that patient may have sealed off the area we went on and inspected the descending colon which was grossly normal palpated normal there is no induration there was no other fluid in the abdomen other than that serous fibrinous exudate that we have mentioned at this point I elected to resect the sigmoid colon which we did she had we chose an area which was proximal to the indurated area using a RAHEL stapler we divided that then took the mesentery close to the colon down to just proximal to the rectum where at that time use a TA 55 stapler across and resected the sigmoid colon the staple line 1 week attached to the anterior abdominal wall at about four 5 interrupted 2 0 Prolene that we would be able to identify that when we closed the colostomy in the future we irrigated the area quite satisfactory there was some oozing that we would control with silk 3 oh silks and also ties is in the mesentery when we were done it was quite dry at this point we then created a opening third the way between the umbilicus and anterior superior iliac crest on the left side probably about $0.25-$0.50 piece of skin and subcutaneous tissue anterior fascia with placed cruciate and went into the rectus abdominis into the abdomen we placed 3 fingers that we could accommodate easily the descending colon is a colostomy we brought the descending the colon out into the wound make sure there was probably oriented held in place with intestinal clamp the abdomen was then closed irrigated placed the omentum down into the pelvic area I placed my hand to feel the NG tube which is in proper position we did irrigate the abdomen quite liberally with a couple liters. I elected to drain the pelvic area with a 19 Pastor drain which was brought out through the right lower quadrant done in the pelvis attaching skin edge with 2-0 silk suture the abdominal incision was closed with a continuous fashion and 0 PDS continuous fashion quarter Ramo drain was placed in the subcu attention distally and proximal to the incision with 3-0 silk staple line for its close the skin at this point we then resected part of the descending colon on the skin level and matured the colostomy using 3-0 interrupted chromic suture colostomy was quite viable colostomy bag was placed the procedure tolerated well by the patient estimated blood loss approximately 150 cc efra tovar was present throughout the procedure and help to retraction exposure wound closure On a side table at the end of the procedure I inspected the sigmoid colon that we had resected as stated they were sitting in the midportion a very indurated area there was one area that seemed to be more prominent whether or not this was a diverticular that a perforated and sealed off I marked that with a long silk suture and I will review that with the pathologist tomorrow. Surgeon Alberto Beckham MD Poll Watcher efra tovar Estimated Blood Loss 150 Findings Consistent with Post-Op Diagnosis Specimens sigmoid colon Description of Procedure merda I attest to the content of the Intraoperative Record and any orders documented therein. Any exceptions are noted below.
[2019-12-25] MEDS ORDERED: GLYCOPYRROLATE 0.2 MG/ML VIAL ONE (17:13)
[2019-12-25] MEDS ORDERED: NEOSTIGMINE METHYLSULFATE 5 MG/5 ML SYR ONE (17:13)
[2019-12-25] MEDS ORDERED: MEPERIDINE HCL 25 MG/ML CARP/VIAL IV STA (17:26)
[2019-12-25] MEDS ORDERED: MEPERIDINE HCL 25 MG/ML CARP/VIAL ONE (17:26)
--- NOTE | 2019-12-25 18:03 | Anesthesiology Progress Note ---
Date of Service December 25, 2019 Anesthesia Post Procedure Vital Signs Vital Signs: Temp Pulse Pulse Pulse Resp BP BP 12/25/19 17:40 94 H 13 104/71 12/25/19 17:30 99 H 16 127/81 12/25/19 17:20 90 15 129/71 12/25/19 17:10 94 H 17 117/71 12/25/19 17:04 37.0 C 91 H 17 131/46 L 12/25/19 14:42 94 H 20 128/68 12/25/19 14:34 36.9 C 97 H 20 132/70 12/25/19 13:29 93 H 17 138/69 12/25/19 11:36 95 H 24 129/76 12/25/19 11:26 37.0 C 95 H 20 103/63 Pulse Ox 12/25/19 17:40 94 12/25/19 17:30 94 12/25/19 17:20 97 12/25/19 17:10 96 12/25/19 17:04 97 12/25/19 14:42 95 12/25/19 14:34 93 12/25/19 13:29 95 12/25/19 11:36 95 12/25/19 11:26 95 Pain Intensity Left Lower Abdomen: Pain Intensity: 2 Abdomen: Pain Intensity: 2 Transfer of Care Handoff Completed per policy Notes Mental Status: alert / awake / arousable Patient Amnestic to Procedure: Yes Nausea / Vomiting: adequately controlled Pain: adequately controlled Airway Patency, RR, SpO2: stable & adequate BP & HR: stable & adequate Hydration State: stable & adequate Anesthetic Complications: no major complications apparent and Pt Satisfied with anesthetic care Notes: The patient is awake and comfortable. Her postop vital signs are the same as her preoperative values.
[2019-12-25] MEDS ORDERED: ACETAMINOPHEN 1,000 MG/100 ML VIAL IV PRN (18:42)
[2019-12-25] MEDS ORDERED: NALOXONE HCL 0.4 MG/1 ML VIAL/CARP IV PRN (18:42)
[2019-12-25] MEDS: LACTATED RINGER'S 1,000 ML IV SCH (20:12)
[2019-12-25] MEDS: SODIUM CHLORIDE 0.9% 1000ML 1,000 ML IV SCH (20:12)
[2019-12-25] MEDS: MORPHINE SULFATE PCA 30 MG/30 ML IV PRN (20:13)
[2019-12-25] MEDS: metroNIDAZOLE 500 MG/100 ML BAG IV SCH (21:31)
[2019-12-25] MEDS: ONDANSETRON INJ 2 MG/ML 2 ML VIAL IV PRN (21:32)
[2019-12-25] MEDS: CIPROFLOXACIN / D5W 400 MG/200 ML BAG IV SCH (21:32)
[2019-12-25 22:35] LABS: Appearance Urine Clear (Clear); Bacteria Urine Automated Negative (Negative); Bilirubin Urine Negative (Negative); Blood Urine Negative (Negative); Color Urine Dark Yellow; Epithelial Cell Urine Auto 20-30 /lpf (0-5); Glucose Urine UA Negative (Negative); Ketones Urine 1+ (Negative); Leukocyte Esterase Urine Negative (Negative); Nitrite Urine Negative (Negative); Protein Urine 1+ (Negative); RBC Urine Automated 0-4 /hpf (0-4); Specific Gravity Urine 1.023 (1.000-1.030); Urobilinogen Urine Negative (Negative); pH Urine 5.5 (4.5-7.5)
[2019-12-26] MEDS: LACTATED RINGER'S 1,000 ML IV SCH ×3 (03:38→20:10)
[2019-12-26] MEDS: ONDANSETRON INJ 2 MG/ML 2 ML VIAL IV PRN ×3 (03:46→22:21)
[2019-12-26] MEDS: metroNIDAZOLE 500 MG/100 ML BAG IV SCH ×3 (05:43→22:53)
--- NOTE | 2019-12-26 06:19 | Surgery Progress Note ---
Date of Service December 26, 2019 Assessment & Plan (1) Pneumoperitoneum: Recent colonoscopy but was doing well, ? possible diverticular perforation. Reviewed outside CT with radiology. Given exam findings and increasing WBC, will plan for exploratory laparotomy with likely sigmoid resection and colostomy. 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 heavy lifting Physical Exam Physical Exam: She is alert coherent no distress NG drainage slightly bilious minimal amount The abdomen slightly distended dressing is dry the colostomy is viable and has some output Results & Data Vital Signs (Past 12 Hours) Vital Signs Temp Pulse Resp BP Pulse Ox 12/26/19 01:15 36.9 C 94 H 18 113/71 95 12/26/19 00:15 36.8 C 95 H 16 117/72 94 12/25/19 23:15 36.9 C 88 18 122/77 96 12/25/19 22:15 36.8 C 99 H 24 118/72 96 12/25/19 20:31 36.5 C 91 H 16 134/77 97 12/25/19 19:34 87 16 123/76 96 12/25/19 18:56 36.6 C 93 H 16 116/73 92 12/25/19 18:30 36.6 C 91 H 16 124/76 95 PG Care Time/CCT Total # of Minutes Spent Total Time Spent with Patient: Total time spent is greater than 50% in coordination of care (as documented) at patient's floor/unit and/or counseling patient: Coding Level of Care Code None Diagnoses Pneumoperitoneum K66.8
[2019-12-26 06:36] LABS: Basophils # (auto) 0.01 K/uL (0-0.2); Basophils % (auto) 0.1 %; Eosinophils # (auto) 0.02 K/uL (0-0.5); Eosinophils % (auto) 0.2 %; Hematocrit (blood only) 32.9 % (37-47); Hemoglobin 10.8 g/dL (12.0-16.0); Immature Granulocytes # (auto) 0.02 K/uL (0.00-0.02); Immature Granulocytes % (auto) 0.2 %; Lymphocytes # (auto) 0.81 K/uL (1.2-3.4); Lymphocytes % (auto) 7.1 %; Mean Corpuscular Hemoglobin 29.9 pg (25-34); Mean Corpuscular Hgb Conc 32.8 g/dL (32-36); Mean Corpuscular Volume 91.1 fL (80-100); Mean Platelet Volume 10.1 fL (7.4-10.4); Monocytes # (auto) 0.57 K/uL (0.11-0.59); Neutrophils % (auto) 87.4 %; Platelet Count 208 K/uL (130-400); RDW Standard Deviation 43.3 fL (36.4-46.3); Red Blood Count 3.61 M/uL (4.2-5.4); White Blood Count 11.33 K/uL (4.8-10.8)
[2019-12-26 07:13] LABS: BUN Creatinine Ratio 25.7 (10-20); Creatinine Clr Calc Pharmacy 67.7 ml/min; Est GFR (African American) 99.2; Est GFR (Non-African American) 85.6; Potassium 3.5 mmol/L (3.5-5.1)
[2019-12-26] MEDS: CIPROFLOXACIN / D5W 400 MG/200 ML BAG IV SCH ×2 (08:31→20:11)
[2019-12-26] MEDS: MORPHINE SULFATE PCA 30 MG/30 ML IV PRN (08:46)
[2019-12-26] MEDS: POTASSIUM CHLORIDE / WTR 10 MEQ/100 ML PLCT IV SCH ×2 (10:26→11:35)
[2019-12-26] MEDS: PANTOprazole 40 MG in SYRINGE 0 ML IV SCH (10:27)
[2019-12-26] MEDS: SODIUM CHLORIDE 0.9% 1000ML 1,000 ML IV SCH (20:16)
[2019-12-27] MEDS: ONDANSETRON INJ 2 MG/ML 2 ML VIAL IV PRN ×4 (03:24→21:34)
[2019-12-27 05:16] LABS: Basophils # (auto) 0.01 K/uL (0-0.2); Basophils % (auto) 0.1 %; Eosinophils # (auto) 0.12 K/uL (0-0.5); Eosinophils % (auto) 1.4 %; Hematocrit (blood only) 31.4 % (37-47); Hemoglobin 10.4 g/dL (12.0-16.0); Immature Granulocytes # (auto) 0.03 K/uL (0.00-0.02); Immature Granulocytes % (auto) 0.4 %; Lymphocytes # (auto) 0.83 K/uL (1.2-3.4); Lymphocytes % (auto) 9.8 %; Mean Corpuscular Hemoglobin 30.2 pg (25-34); Mean Corpuscular Hgb Conc 33.1 g/dL (32-36); Mean Corpuscular Volume 91.3 fL (80-100); Mean Platelet Volume 10.1 fL (7.4-10.4); Monocytes # (auto) 0.49 K/uL (0.11-0.59); Monocytes % (auto) 5.8 %; Neutrophils # (auto) 7.02 K/uL (1.4-6.5); Neutrophils % (auto) 82.5 %; Platelet Count 184 K/uL (130-400); RDW Coefficient of Variation 12.6 % (11.5-14.5); RDW Standard Deviation 42.4 fL (36.4-46.3); Red Blood Count 3.44 M/uL (4.2-5.4)
[2019-12-27] MEDS: metroNIDAZOLE 500 MG/100 ML BAG IV SCH ×3 (05:47→23:29)
[2019-12-27] MEDS: LACTATED RINGER'S 1,000 ML IV SCH (05:56)
[2019-12-27 06:12] LABS: BUN Creatinine Ratio 14.4 (10-20); Calcium 7.9 mg/dl (8.5-10.1); Creatinine Clr Calc Pharmacy 69.6 ml/min; Est GFR (African American) 102.6; Est GFR (Non-African American) 88.5; Potassium 3.6 mmol/L (3.5-5.1)
--- NOTE | 2019-12-27 07:46 | Surgery Progress Note ---
Date of Service December 27, 2019 Assessment & Plan (1) Pneumoperitoneum: POD#2 ex-lap with sigmoid resection and creation of colostomy Pt tolerated NGT out, will continue clear liquids for now Will start fluids w/ potassium supplementation Kamara can be removed today Wounds c/d/i, ostomy viable with some thin liquid in bag, MARILYN serosang (80cc) Encourage out out bed with ambulation today Pt seen and examined with Dr. Beckham Subjective Patient says she feels exhausted, due to noise interruptions at night. Otherwise she is doing okay. Tolerated small amount of clears yesterday. Physical Exam Physical Exam: awake/alert Gastrointestinal (Abdomen): Inspection/Auscultation: + abdomen distended (mild), + abdominal surgical incision (c/d/i with surgical marilou and sanaz in place) and + abdominal surgical drain present (serosang) Percussion/Palpation: abdomen soft + stoma pink & viable, some thin fluid in bag Results & Data Vital Signs (Past 12 Hours) Vital Signs Temp Pulse Resp BP BP Pulse Ox 12/27/19 07:27 36.7 C 80 18 121/77 95 12/27/19 03:23 36.7 C 95 H 20 135/83 92 12/26/19 23:05 36.9 C 95 H 18 120/76 92 12/26/19 20:50 36.8 C 97 H 18 127/75 92 PG Care Time/CCT Total # of Minutes Spent Total Time Spent with Patient: Total time spent is greater than 50% in coordination of care (as documented) at patient's floor/unit and/or counseling patient: Coding Level of Care Code None Diagnoses Pneumoperitoneum K66.8
[2019-12-27] MEDS: CIPROFLOXACIN / D5W 400 MG/200 ML BAG IV SCH ×2 (08:37→21:17)
[2019-12-27] MEDS: D5W AND 1/2NSS + 20MEQ KCL 20 MEQ/1,000 ML BAG IV SCH ×2 (09:34→21:15)
[2019-12-27] MEDS: PANTOprazole 40 MG in SYRINGE 0 ML IV SCH (11:37)
[2019-12-27] MEDS: SODIUM CHLORIDE 0.9% 1000ML 1,000 ML IV SCH (21:18)
[2019-12-28] MEDS: ONDANSETRON INJ 2 MG/ML 2 ML VIAL IV PRN ×4 (03:08→23:20)
[2019-12-28] MEDS: metroNIDAZOLE 500 MG/100 ML BAG IV SCH ×3 (05:29→22:36)
[2019-12-28 07:31] LABS: Basophils # (auto) 0.01 K/uL (0-0.2); Basophils % (auto) 0.2 %; Eosinophils # (auto) 0.13 K/uL (0-0.5); Eosinophils % (auto) 2.3 %; Hematocrit (blood only) 31.3 % (37-47); Hemoglobin 10.2 g/dL (12.0-16.0); Immature Granulocytes # (auto) 0.05 K/uL (0.00-0.02); Immature Granulocytes % (auto) 0.9 %; Lymphocytes # (auto) 0.79 K/uL (1.2-3.4); Lymphocytes % (auto) 13.7 %; Mean Corpuscular Hemoglobin 29.7 pg (25-34); Mean Corpuscular Hgb Conc 32.6 g/dL (32-36); Mean Platelet Volume 9.8 fL (7.4-10.4); Monocytes # (auto) 0.56 K/uL (0.11-0.59); Monocytes % (auto) 9.7 %; Neutrophils # (auto) 4.23 K/uL (1.4-6.5); Neutrophils % (auto) 73.2 %; Platelet Count 207 K/uL (130-400); RDW Coefficient of Variation 12.4 % (11.5-14.5); RDW Standard Deviation 41.7 fL (36.4-46.3); Red Blood Count 3.44 M/uL (4.2-5.4); White Blood Count 5.77 K/uL (4.8-10.8)
[2019-12-28 08:00] LABS: BUN Creatinine Ratio 4.8 (10-20); Creatinine Clr Calc Pharmacy 72.6 ml/min; Est GFR (African American) 106.6; Potassium 2.9 mmol/L (3.5-5.1)
[2019-12-28] MEDS: CIPROFLOXACIN / D5W 400 MG/200 ML BAG IV SCH ×2 (08:06→21:11)
[2019-12-28] MEDS ORDERED: MoRPHine SULFATE 4 MG/ML 1 ML CARP\\VIAL IV PRN (09:31)
[2019-12-28] MEDS ORDERED: OXYCODONE/ACETAMINOPHEN 5mg/325mg TAB PO PRN (09:31)
[2019-12-28] MEDS: PANTOprazole 40 MG in SYRINGE 0 ML IV SCH (10:11)
[2019-12-28] MEDS: D5W AND 1/2NSS + 20MEQ KCL 20 MEQ/1,000 ML BAG IV SCH ×3 (10:12→17:02)
--- NOTE | 2019-12-28 10:44 | Surgery Progress Note ---
Date of Service December 28, 2019 Assessment & Plan (1) Pneumoperitoneum: POD#2 ex-lap with sigmoid resection and creation of colostomy Pt tolerated NGT out, will continue clear liquids for now Will start fluids w/ potassium supplementation Kamara can be removed today Wounds c/d/i, ostomy viable with some thin liquid in bag, MARILYN serosang (80cc) Encourage out out bed with ambulation today Pt seen and examined with Dr. Beckham 12/28/19 Patient is third postoperative day status post Litzy procedure for perforated sigmoid diverticulum (path noted) The pathology was discussed with the patient At this point we will decrease her fluids increase her oral intake I suspect she will be in a hospital another 2 days or so All questions were answered Subjective Patient feels fine no real complaints except that she is passing her urine quite often Physical Exam Physical Exam: She is alert coherent no distress resting comfortably The abdomen is soft no tenderness the Ramo from the subcu incision was removed the colostomy is viable with output The incision is free of any drainage or cellulitis Results & Data Vital Signs (Past 12 Hours) Vital Signs Temp Pulse Resp BP BP Pulse Ox 12/28/19 07:32 36.3 C L 85 20 139/72 97 12/28/19 04:00 36.7 C 88 14 145/80 H 97 12/27/19 23:04 37.2 C 84 14 138/76 95 PG Care Time/CCT Total # of Minutes Spent Total Time Spent with Patient: Total time spent is greater than 50% in coordination of care (as documented) at patient's floor/unit and/or counseling patient: Coding Level of Care Code None Diagnoses Pneumoperitoneum K66.8
[2019-12-28] MEDS: POTASSIUM CHLORIDE / WTR 10 MEQ/100 ML PLCT IV SCH ×3 (11:27→14:24)
[2019-12-28] MEDS: MoRPHine SULFATE 2 MG/ML CARP IV PRN ×2 (13:35→17:05)
[2019-12-29] MEDS: MoRPHine SULFATE 2 MG/ML CARP IV PRN (02:42)
[2019-12-29] MEDS: D5W AND 1/2NSS + 20MEQ KCL 20 MEQ/1,000 ML BAG IV SCH (03:41)
[2019-12-29] MEDS: metroNIDAZOLE 500 MG/100 ML BAG IV SCH ×3 (05:42→22:01)
[2019-12-29] MEDS: ONDANSETRON INJ 2 MG/ML 2 ML VIAL IV PRN (05:44)
--- NOTE | 2019-12-29 06:08 | Surgery Progress Note ---
Date of Service December 29, 2019 Assessment & Plan (1) Pneumoperitoneum: POD#2 ex-lap with sigmoid resection and creation of colostomy Pt tolerated NGT out, will continue clear liquids for now Will start fluids w/ potassium supplementation Kamara can be removed today Wounds c/d/i, ostomy viable with some thin liquid in bag, MARILYN serosang (80cc) Encourage out out bed with ambulation today Pt seen and examined with Dr. Beckham 12/28/19 Patient is third postoperative day status post Litzy procedure for perforated sigmoid diverticulum (path noted) The pathology was discussed with the patient At this point we will decrease her fluids increase her oral intake I suspect she will be in a hospital another 2 days or so All questions were answered 12/29/19 Patient is fourth day postop Litzy procedure she continues to do well we will reevaluate her later today and if she is comfortable tolerating a diet she may be able to be discharged Subjective Overall feels well had a good day yesterday only issue is sometimes she needs to run to the bathroom the past her urine but no true dysuria Physical Exam Physical Exam: She resting comfortably the colostomy is viable with output the abdomen is still slightly distended Results & Data Vital Signs (Past 12 Hours) Vital Signs Temp Pulse Resp BP Pulse Ox 12/28/19 23:12 37.2 C 90 20 145/81 H 95 PG Care Time/CCT Total # of Minutes Spent Total Time Spent with Patient: Total time spent is greater than 50% in coordination of care (as documented) at patient's floor/unit and/or counseling patient: Coding Level of Care Code None Diagnoses Pneumoperitoneum K66.8
[2019-12-29 07:23] LABS: Hematocrit (blood only) 34.8 % (37-47); Hemoglobin 10.9 g/dL (12.0-16.0); Mean Corpuscular Hemoglobin 28.3 pg (25-34); Mean Corpuscular Hgb Conc 31.3 g/dL (32-36); Mean Corpuscular Volume 90.4 fL (80-100); Mean Platelet Volume 9.5 fL (7.4-10.4); Platelet Count 221 K/uL (130-400); RDW Coefficient of Variation 12.5 % (11.5-14.5); RDW Standard Deviation 41.5 fL (36.4-46.3); Red Blood Count 3.85 M/uL (4.2-5.4); White Blood Count 5.51 K/uL (4.8-10.8)
[2019-12-29 07:49] LABS: Calcium 7.9 mg/dl (8.5-10.1); Creatinine Clr Calc Pharmacy 80.8 ml/min; Est GFR (African American) 110.4; Est GFR (Non-African American) 95.3; Potassium 3.1 mmol/L (3.5-5.1)
[2019-12-29] MEDS: CIPROFLOXACIN / D5W 400 MG/200 ML BAG IV SCH ×2 (09:36→20:39)
[2019-12-29] MEDS: OXYCODONE/ACETAMINOPHEN 5mg/325mg TAB PO PRN ×3 (09:54→22:02)
[2019-12-29] MEDS: POTASSIUM CHLORIDE 20 MEQ TABCR PO SCH ×2 (10:15→20:39)
[2019-12-29] MEDS: PANTOprazole 40 MG in SYRINGE 0 ML IV SCH (11:20)
[2019-12-29] MEDS: PANTOprazole 40 MG TAB PO SCH (20:38)
[2019-12-30] MEDS: metroNIDAZOLE 500 MG/100 ML BAG IV SCH (06:17)
[2019-12-30] MEDS: OXYCODONE/ACETAMINOPHEN 5mg/325mg TAB PO PRN (07:52)
[2019-12-30] MEDS: POTASSIUM CHLORIDE 20 MEQ TABCR PO SCH (09:17)
[2019-12-30] MEDS: PANTOprazole 40 MG TAB PO SCH (09:17)
--- NOTE | 2019-12-30 09:33 | Surgery Progress Note ---
Date of Service December 30, 2019 Assessment & Plan (1) Bowel perforation: Postoperative day #5 status post Litzy procedure Doing well from surgical standpoint Colostomy is functioning Can discharge to home Discussed activity restrictions with the patient She should contact Dr. Beckham's office on Wednesday to schedule follow-up appointment Subjective Postoperative day #5 status post Litzy procedure Tolerating regular diet without nausea or vomiting Colostomy is functioning well Pain is under control Ambulated Drains removed yesterday Physical Exam Gastrointestinal (Abdomen): Inspection/Auscultation: normal bowel sounds and + abdominal surgical incision (Clean, dry and intact); abdomen not distended Percussion/Palpation: abdomen soft; abdomen nontender Colostomy is functioning and appears healthy Results & Data Vital Signs (Past 12 Hours) Vital Signs Temp Pulse Resp BP BP Pulse Ox 12/30/19 07:16 36.7 C 82 16 147/79 H 95 12/29/19 22:50 36.8 C 84 16 155/77 H 95
[2019-12-30] MEDS: CIPROFLOXACIN / D5W 400 MG/200 ML BAG IV SCH (10:04)
--- NOTE | 2020-01-01 13:43 | Discharge Summary ---
Date of Service January 01, 2020 Admission HPI Per Admitting Provider 64 y/o female h/o Crohn's had screening colonoscopy Tuesday 12/[address] Dubon. She felt fine until Wednesday when she started having abdominal pain. She was eating normally, was having BMs, and had loose BM this AM. She was seen in [place] ED last evening where CT showed free air and she was told she would need surgery with permanent colostomy. She was afraid of that, and wanted to discuss the situation with Dr. Dubon and so she came here to the ED today. Principal Diagnosis Sigmoid colon perforation, diverticulitis Discharge Exam Gastrointestinal (Abdomen) Inspection/Auscultation: + abdominal surgical incision (clean, dry, no erythema) Percussion/Palpation: abdomen soft colostomy viable Discharge Data Allergies Allergy/AdvReac Type Severity Reaction Status Date / Time pneumococcal vaccine Allergy Severe Severe Verified 12/25/19 12:53 swell/redness cephalexin Allergy Intermediate Diarrhea Verified 12/25/19 12:53 Consultations 12/26/19 10:58 Consult Case Management - Discharge Planning Routine Procedures Performed Operation Date: 12/25/19 08:50 Actual Procedures p Exploratory Laparotomy; open Resection of Sigmoid Colon; creation of colostomy(Not Applicable) - Alberto Beckham MD Hospital Course (1) Bowel perforation: 64 y/o female presented to the ED with abdominal pain and CT from outside facility the previous evening with pneumoperitoneum. Her white count had increased and she had peritoneal findings. She was taken to the operating room for exploration, and had inflammatory changes of sigmoid colon and Litzy's procedure performed. Pathology returned as perforated diverticulitis. She was transferred to the surgical floor and continued on IV abx. NG tube was removed on POD 1. Her white count normalized on day two. Kamara was removed and she was started on liquid diet. She was able to tolerate advancing diet and began having colostomy output. Pastor drain was removed. She was stable for discharge with home health on POD 5. Total Time Total Time Spent Total Time Spent (In Minutes): 15 Discharge Plan Discharge Items Patient Disposition: Home - Home Health Services Reason For Visit: COLONOSCOPY COMPLICATIONS - DR DUBON REF Discharge Diagnosis: exploratory laparotomy, sigmoid colon resection and creation of colostomy Condition on Discharge: Serious Activity: Per Instructions section Lifting: No more than 10 pounds Bathing Comment: may shower, no soaking in tubs Exercise/Sports: Wait until after follow-up appointment Driving/Machine Use: Resume 3 days after discharge Non-emergency contact: Surgeon Call non-emergency contact if: you have any medication questions, your symptoms worsen, your pain is not controlled, your pain is worsening, your pain is unusual for you, you have a fever, your temperature is above 101.5, your wound has increased redness, your wound has increased drainage and your wound pain has increased Follow-up/Referrals: Alberto Beckham MD [Surgeon] - (Please call to schedule follow up in clinic within 1 week) Dara Trejo DO [Primary Care Provider] - Diet: Low Fiber Addtl Attending Provider Instructions: Please care for your colostomy and appliance as you have been instructed prior to discharge from the hospital Your surgical marilou will be removed when you follow up in clinic. Pending Studies at Discharge: Yes Studies:: surgical pathology Stand-Alone Forms: My [facility], Opioid Pain Management, Work/School Release (Inpt), Smoking Cessation Medications and DC Order Prescriptions: New oxycodone-acetaminophen [Percocet] 5-325 mg tablet 1 - 2 tab PO Q4H PRN (Reason: pain, initial therapy, max 6 daily) Qty: 15 RF: 0 Continued Remicade 100 mg recon soln 10 mg/kg IV Q8WK RF: 0 cholecalciferol (vitamin D3) 5,000 unit tablet 5,000 unit PO QAM RF: 0 ferrous sulfate 325 mg (65 mg iron) tablet 325 mg PO QAM RF: 0 amlodipine 5 mg tablet 5 mg PO QAM RF: 0 multivitamin tablet 1 tab PO QAM RF: 0 pantoprazole 40 mg tablet,delayed release (DR/EC) 40 mg PO BID Qty: 60 RF: 0 folic acid 1 mg tablet 1 mg PO QAM Qty: 30 RF: 0 cholestyramine (with sugar) 4 gram powder in packet 4 g PO QAM RF: 0 Toviaz 8 mg tablet extended release 24 hr 8 mg PO QAM RF: 0 mirabegron 50 mg tablet extended release 24 hr 50 mg PO QPM RF: 0 valacyclovir [Valtrex] 500 mg Tablet 1,000 mg PO UD PRN (Reason: Cold Sores) RF: 0 Calcium 600 + D(3) 600 mg calcium- 200 unit Capsule 1 cap PO BID RF: 0 cranberry extract-vitamin C 250-60 mg Capsule 1 cap PO QAM RF: 0 Gentamycin 1 dose intranasal QAM RF: 0 Discontinued hydrocodone-acetaminophen 5-325 mg tablet 1 tab PO Q8 PRN (Reason: Pain) RF: 0 Discharge Orders: Discharge Order (Routine); Ordered 12/30/19 Ordered By: Reggie France/Other Patient Handouts: Ostomy Care: Emptying Your Pouch, Anatomy of the Digestive System, Discharge Instructions for Total Abdominal Colectomy Admission Data Admit Date/Time: 12/25/19 17:03 Attending Provider: Alberto Beckham Admit Provider: Ed Fernando Jr Primary Care Provider: Dara Trejo Other Interventions: Discharge Summary Assessment (RN) Last Done: 12/30/19 10:19 DC Date/Time DO NOT enter until pt leaves facility: 12/30/19 13:01 Coding Level of Care Code D/C Day Management <30 mins Diagnoses Bowel perforation K63.1
== END 2019-12-30 13:01 | disposition home health service (06) | DRG 330 ==
LOC: ED 11:01 → ASU 14:42 → 3N 17:03

== ENCOUNTER 2020-06-10 21:05 | Inpatient (IN) ==
[2020-06-10] MEDS ORDERED: ONDANSETRON INJ 2 MG/ML 2 ML VIAL IV STA (21:42)
[2020-06-10] MEDS ORDERED: SODIUM CHLORIDE 0.9% 500 ML IV ONE (21:42)
[2020-06-10] MEDS ORDERED: MoRPHine SULFATE 4 MG/ML 1 ML CARP\\VIAL IV STA ×2 (21:42→22:12)
--- NOTE | 2020-06-10 21:50 | Emergency Department Note ---
History of Present Illness General Chief complaint: Cardiac Assessment Stated complaint: CHEST/RIB/BACK PAIN Time Seen by Provider: 06/10/20 21:27 Source: patient Mode of arrival: ambulatory Limitations: no limitations History of Present Illness Maximum Pain Intensity: 9 Thi patient comes in with epigastric pain. It started around noon. It radiates to her back. She thought it was just gas she laid down and went to sleep when she woke up she felt better but it came back. She had an ostomy placed on December 24 she has had normal output she has some redness around this and been on some steroids. She has had some drainage from the site as well no fever or chills. No blood or melena in the stool. No numbness or weakness. Questionable pain with breathing hurts worse when she pushes on it or moves. No dysuria or hematuria. No travel. No known exposure to Covid or coronavirus. Her drove her and she is not driving Home Medications Medication Instructions Recorded Confirmed Type amlodipine 5 mg tablet 5 mg PO QAM tab 03/21/19 06/03/20 History cholecalciferol (vitamin D3) 125 5,000 unit PO QAM tab 03/21/19 06/03/20 History mcg (5,000 unit) tablet ferrous sulfate 325 mg (65 mg 325 mg PO QAM tab 03/21/19 06/03/20 History iron) tablet folic acid 1 mg tablet 1 mg PO QAM #30 tab 03/21/19 06/03/20 History multivitamin 1 tab PO QAM 03/21/19 06/03/20 History pantoprazole 40 mg tablet,delayed 40 mg PO BID #60 tab 03/21/19 06/03/20 History release infliximab 100 mg intravenous 10 mg/kg IV Q8WK ea 05/15/19 06/03/20 History solution Calcium 600 + D(3) 1 cap PO BID 12/13/19 06/03/20 History Gentamycin 1 dose INTRANASAL QAM 12/13/19 06/03/20 History cholestyramine (with sugar) 4 g PO QAM 12/13/19 06/03/20 History cranberry extract-vitamin C 1 cap PO QAM 12/13/19 06/03/20 History valacyclovir [Valtrex] 1,000 mg PO UD PRN 12/13/19 06/03/20 History fesoterodine 8 mg tablet,extended 8 mg PO DAILY #90 tab 04/15/20 06/03/20 Rx release 24 hr nystatin 100,000 unit/gram topical 1 applic TOPICAL BID #60 g 05/14/20 06/03/20 Rx powder desoximetasone 0.05 % topical cream 1 applic TOPICAL DAILY #60 g 05/24/20 06/03/20 Rx methylprednisolone 4 mg tablets in See Rx Instructions .ROUTE 05/27/20 06/03/20 Rx a dose pack .COMPLEX #21 ea mirabegron 50 mg tablet,extended 50 mg PO DAILY #90 tab 05/27/20 06/03/20 Rx release 24 hr Allergies Allergy/AdvReac Type Severity Reaction Status Date / Time pneumococcal vaccine Allergy Severe Severe Verified 06/11/20 00:24 swell/redness cephalexin Allergy Intermediate Diarrhea Verified 06/11/20 00:24 Past Med/Surg History Medical History (Updated 06/11/20 @ 00:12 by Lars Vaz MD) Crohns disease Degenerative disc disease History of anesthesia reaction difficulty waking History of kidney stones Hypertension Osteoarthritis Sleep apnea has testing done 12/12/2019--awaiting results Surgical History History of bilateral cataract extraction History of bilateral tubal ligation History of cholecystectomy History of colon resection (01/29/20) Exploratory Laparotomy; open Resection of Sigmoid Colon; creation of colostomy Dr. Beckham 01/29/20 History of colonoscopy with polypectomy History of cystoscopy History of nasal cauterization History of Staci fundoplication with hernia repair History of total vaginal hysterectomy Status post trigger finger release right hand Family History Sister Family history of diabetes mellitus Other No family history of adverse response to anesthesia Social History Smoking Status: Never smoker Second Hand Exposure: Yes (parents smoked/ smoked); Hx Alcohol Use: No Hx Substance Use: No Preferred Language: [place]an Communication Ability: Effective Visual Impairment: No Limitations Community Health Advocate Required: No Beliefs That Will Affect Care: None marital status: Current Living Situation: Spouse Feels Safe at Home: Yes Assistive Devices: None Review of Systems A total of 10 systems reviewed and were otherwise negative Physical Exam Vital Signs Vital Signs - 24 hr 06/10/20 21:12 06/10/20 21:57 06/10/20 21:58 Temperature 36.8 C Temperature Source Oral Pulse Rate 90 Pulse Rate [Left Apical] 74 Respiratory Rate 22 18 Respiratory Effort / Characteristics Non-Labored Respiratory Depth Normal Normal Blood Pressure 162/82 H Blood Pressure [Left Arm] 158/82 H Blood Pressure Mean 108 Blood Pressure Mean [Left Arm] 107 Blood Pressure Position Sitting Pulse Oximetry 99 97 97 Oxygen Delivery Method Room Air Room Air Room Air Sepsis Recent Fever Within 48 Hours No Sepsis New/Unexplained Change in Mental Status No Sepsis Action Taken by Nursing No Action Required 06/10/20 22:37 06/11/20 00:15 Temperature Temperature Source Pulse Rate Pulse Rate [Left Apical] 85 86 Respiratory Rate 22 20 Respiratory Effort / Characteristics Non-Labored Respiratory Depth Normal Blood Pressure Blood Pressure [Left Arm] 145/69 H 144/76 H Blood Pressure Mean Blood Pressure Mean [Left Arm] 94 98 Blood Pressure Position Pulse Oximetry 98 100 Oxygen Delivery Method Room Air Sepsis Recent Fever Within 48 Hours Sepsis New/Unexplained Change in Mental Status Sepsis Action Taken by Nursing General: Well developed well nourished middle-age female who appears mildly uncomfortable but otherwise in no acute distress, breathing comfortably on room air. Normal speech HEENT: Normal cephalic atraumatic. Pupils are equal round and reactive to light. Extraocular movements are intact. Oropharynx is pink with moist mucous membranes. No swelling of the mouth lips or tongue. Neck: Supple with a midline trachea. No meningeal signs or stiffness, no JVD or bruits. No Stridor. Chest: Clear to auscultation bilaterally. No wheezes or rhonchi. No increased work of breathing. Heart: Regular rate and rhythm without murmurs or gallops. Abdomen: Soft, moderately tender in the epigastric area. Nondistended without rebound guarding or rigidity. The ostomy is in place with stool in the bag in the left mid to lower abdomen. The skin is mildly red around it and she says she has had a rash there and was put on steroids for. There is no drainage at this point seen. Extremities: No cyanosis clubbing or edema. No calf tenderness or assymetry Spine/Back. Non tender to palpation. No CVA tenderness Skin: Good turgor without rashes. Neurologic exam: Cranial nerves two through 12 are intact. Motor and sensation are intact and symmetrical throughout. Course Administered Medications Sodium Chloride (Nss 1000ml) 1,000 mls @ 999 mls/hr IV .Q1H1M ONE Stop: 06/11/20 01:01 Last Admin: 06/11/20 00:15 Dose: 999 mls/hr Documented by: [id number] Discontinued Medications Sodium Chloride (Nss) 500 mls @ 999 mls/hr IV .Q31M ONE Stop: 06/10/20 22:12 Last Infusion: 06/10/20 22:37 Dose: 0 mls/hr Documented by: [id number] Admin: 06/10/20 21:57 Dose: 999 mls/hr Documented by: [id number] Ioversol (Ioversol 100ml) 93 ml IV ONCE ONE Stop: 06/10/20 22:28 Last Admin: 06/10/20 22:27 Dose: 1 ml Documented by: [id number] Morphine Sulfate (Morphine Sulfate 4 Mg/Ml 1 Ml Carp\Vial) 4 mg IV NOW STA Stop: 06/10/20 21:43 Last Admin: 06/10/20 21:56 Dose: 4 mg Documented by: [id number] Morphine Sulfate (Morphine Sulfate 4 Mg/Ml 1 Ml Carp\Vial) 4 mg IV NOW STA Stop: 06/10/20 22:13 Last Admin: 06/10/20 22:19 Dose: 4 mg Documented by: [id number] Ondansetron HCl (Ondansetron Inj 2 Mg/Ml 2 Ml Vial) 4 mg IV NOW STA Stop: 06/10/20 21:43 Last Admin: 06/10/20 21:56 Dose: 4 mg Documented by: [id number] Medical Decision Making Differential Diagnosis Bowel obstruction, infection, pancreatitis, appendicitis, cardiac disease, pulmonary disease, Covid, sepsis Medical Records Attestation: I reviewed the patient's medical records. Home Medications Current Medication List: was personally reviewed by me Laboratory Data Attestation: I reviewed the patient's lab results. Result diagrams: 06/10/20 21:23 06/10/20 21:23 Lab Results 06/10/20 06/10/20 06/10/20 Range/Units 21:23 21:23 21:23 WBC 7.25 (4.8-10.8) K/uL RBC 4.58 (4.2-5.4) M/uL Hgb 13.9 (12.0-16.0) g/dL Hct 42.3 (37-47) % MCV 92.4 (80-100) fL MCH 30.3 (25-34) pg MCHC 32.9 (32-36) g/dL RDW Std Deviation 42.9 (36.4-46.3) fL RDW Coeff of Kody 12.8 (11.5-14.5) % Plt Count 254 (130-400) K/uL MPV 9.7 (7.4-10.4) fL Immature Gran % (Auto) 0.3 % Neut % (Auto) 62.9 % Lymph % (Auto) 25.8 % [place] % (Auto) 7.9 % Eos % (Auto) 2.8 % Baso % (Auto) 0.3 % Neut # (Auto) 4.57 (1.4-6.5) K/uL Lymph # (Auto) 1.87 (1.2-3.4) K/uL [place] # (Auto) 0.57 (0.11-0.59) K/uL Eos # (Auto) 0.20 (0-0.5) K/uL Baso # (Auto) 0.02 (0-0.2) K/uL Immature Gran # (Auto) 0.02 (0.00-0.02) K/uL PT 10.4 (9.0-12.0) Seconds INR 1.0 (0.9-1.1) APTT 33.3 H (21.0-31.0) Seconds PTT Ratio 1.2 Sodium 140 (136-145) mmol/L Potassium 3.4 L (3.5-5.1) mmol/L Chloride 107 (98-107) mmol/L Carbon Dioxide 26 (21-32) mmol/L Anion Gap 7.0 (3-11) BUN 17 (7-18) mg/dl Creatinine 1.04 (0.6-1.2) mg/dl Est Cr Clr Drug Dosing 47.7 ml/min Est GFR ( Amer) 65.3 Est GFR (Non-Af Amer) 56.3 BUN/Creatinine Ratio 16.3 (10-20) Glucose 125 H (70-99) mg/dl Calcium 9.1 (8.5-10.1) mg/dl Total Bilirubin 0.4 (0.2-1) mg/dl AST 21 (15-37) U/L ALT 22 (12-78) U/L Alkaline Phosphatase 99 (45-117) U/L Troponin I < 0.015 (0-0.045) ng/ml Total Protein 7.8 (6.4-8.2) gm/dl Albumin 3.7 (3.4-5.0) gm/dl Globulin 4.1 H (2.5-4.0) gm/dl Albumin/Globulin Ratio 0.9 (0.9-2) Lipase 132 (73-393) U/L Imaging Data Attestation: I personally reviewed and interpreted this imaging study as follows: My Impression: Chest x-ray, no acute infiltrate, failure, pneumothorax. No free air. ECG Data Attestation: I personally reviewed and interpreted this ECG as follows: Indication: + abdominal pain Rate (beats per minute): 79 Rhythm: + normal sinus ECG Intervals/blocks: + Normal QRS, + Normal QT and + Normal IN ECG [place]: + Normal ECG ST segments: + Normal ST segments ECG Findings: + LVH; no PACs and no PVCs Comparison ECG Date: from (12/15/19) Change: the following changes noted (PVCs are now absent) MDM Narrative This patient comes in as described above. She is having epigastric abdominal pain, it is very reproducible. Her ostomy is not working she is not tender around there she has had some redness and may be some drainage points but she has no fever. IV access was established and blood work was obtained.she was given morphine 4 mg IV and Zofran 4 mg IV for pain and nausea management. She is not driving. EKG does not show any ischemic changes, I do not think is likely cardiac or pulmonary as her symptoms are extremely reproducible. I did order blood work as well as urinalysis and a CAT scan to evaluate for intra- abdominal process such as colitis bowel obstruction or pancreatitis. She was reassessed frequently. Her CAT scan shows small bowel obstruction with a parastomal hernia with decompression distally suggesting intermediate to high grade small bowel obstruction. She did receive additional morphine here as well as additional IV fluids and I ordered a lactic acid. I do think she needs to be admitted for further treatment and evaluation, I did consult the on-call surgeon Dr. Gómez to see her in the emergency department. He initially suggested transferring to a colorectal surgeon but unfortunately due to the inability to get the patient out in a timely manner secondary to the Covid pandemic and overwhelmed hospital systems, I did consult him to see her in the emergency department. I also consulted Dr. Medina from the medical team to admit her as well. Continous cardiac monitoring: an order was placed in the EMR. The patient was noted to be in normal sinus with a rate of 85. Impression & Plan SBO (small bowel obstruction), Abdominal pain, Parasternal hernia Discharge Plan Visit Data Chief Complaint: Cardiac Assessment Stated Complaint: CHEST/RIB/BACK PAIN ED Provider: Dada Cameron Discharge Problem: SBO (small bowel obstruction), Abdominal pain, Parasternal hernia Forms Stand Alone Forms: My [facility] Prescriptions Prescriptions: No Action Remicade 100 mg recon soln 10 mg/kg IV Q8WK RF: 0 Toviaz 8 mg tablet extended release 24 hr 8 mg PO DAILY Qty: 90 RF: 3 desoximetasone [Topicort] 0.05 % cream 1 applic topical DAILY Qty: 60 RF: 4 mirabegron 50 mg tablet extended release 24 hr 50 mg PO DAILY Qty: 90 RF: 1 cholecalciferol (vitamin D3) 5,000 unit tablet 5,000 unit PO QAM RF: 0 ferrous sulfate 325 mg (65 mg iron) tablet 325 mg PO QAM RF: 0 amlodipine 5 mg tablet 5 mg PO QAM RF: 0 multivitamin tablet 1 tab PO QAM RF: 0 pantoprazole 40 mg tablet,delayed release (DR/EC) 40 mg PO BID Qty: 60 RF: 0 folic acid 1 mg tablet 1 mg PO QAM Qty: 30 RF: 0 methylprednisolone [Medrol (Darrell)] 4 mg tablets,dose pack See Rx Instructions .ROUTE .COMPLEX Qty: 21 RF: 0 nystatin 100,000 unit/gram powder 1 applic topical BID Qty: 60 RF: 1 cholestyramine (with sugar) 4 gram powder in packet 4 g PO QAM RF: 0 valacyclovir [Valtrex] 500 mg Tablet 1,000 mg PO UD PRN (Reason: Cold Sores) RF: 0 Calcium 600 + D(3) 600 mg calcium- 200 unit Capsule 1 cap PO BID RF: 0 cranberry extract-vitamin C 250-60 mg Capsule 1 cap PO QAM RF: 0 Gentamycin 1 dose intranasal QAM RF: 0 Discharge Problem: Abdominal pain Qualifiers: Abdominal location: epigastric Qualified Code(s): R10.13 - Epigastric pain
[2020-06-10 21:52] LABS: Basophils # (auto) 0.02 K/uL (0-0.2); Basophils % (auto) 0.3 %; Eosinophils % (auto) 2.8 %; Hematocrit (blood only) 42.3 % (37-47); Hemoglobin 13.9 g/dL (12.0-16.0); Immature Granulocytes # (auto) 0.02 K/uL (0.00-0.02); Immature Granulocytes % (auto) 0.3 %; Lymphocytes # (auto) 1.87 K/uL (1.2-3.4); Lymphocytes % (auto) 25.8 %; Mean Corpuscular Hemoglobin 30.3 pg (25-34); Mean Corpuscular Hgb Conc 32.9 g/dL (32-36); Mean Corpuscular Volume 92.4 fL (80-100); Mean Platelet Volume 9.7 fL (7.4-10.4); Monocytes # (auto) 0.57 K/uL (0.11-0.59); Monocytes % (auto) 7.9 %; Neutrophils # (auto) 4.57 K/uL (1.4-6.5); Neutrophils % (auto) 62.9 %; Platelet Count 254 K/uL (130-400); RDW Coefficient of Variation 12.8 % (11.5-14.5); RDW Standard Deviation 42.9 fL (36.4-46.3); Red Blood Count 4.58 M/uL (4.2-5.4); White Blood Count 7.25 K/uL (4.8-10.8)
[2020-06-10 22:04] LABS: Partial Thromboplastin Ratio 1.2; Partial Thromboplastin Time 33.3 Seconds (21.0-31.0); Prothrombin Time 10.4 Seconds (9.0-12.0)
[2020-06-10 22:08] LABS: Alanine Aminotransferase 22 U/L (12-78); Albumin Level 3.7 gm/dl (3.4-5.0); Aspartate Aminotransferase 21 U/L (15-37); BUN Creatinine Ratio 16.3 (10-20); Blood Urea Nitrogen 17 mg/dl (7-18); Calcium 9.1 mg/dl (8.5-10.1); Carbon Dioxide 26 mmol/L (21-32); Chloride 107 mmol/L (98-107); Creatinine Clr Calc Pharmacy 47.7 ml/min; Est GFR (African American) 65.3; Est GFR (Non-African American) 56.3; Glucose 125 mg/dl (70-99); Lipase 132 U/L (73-393); Potassium 3.4 mmol/L (3.5-5.1); Sodium 140 mmol/L (136-145)
[2020-06-10 22:12] LABS: Albumin Globulin Ratio 0.9 (0.9-2); Alkaline Phosphatase 99 U/L (45-117); Bilirubin,Total 0.4 mg/dl (0.2-1); Globulin 4.1 gm/dl (2.5-4.0); Total Protein 7.8 gm/dl (6.4-8.2); Troponin I < 0.015 ng/ml (0-0.045)
[2020-06-10] MEDS ORDERED: IOVERSOL 100ml IV ONE (22:27)
[2020-06-11] MEDS ORDERED: SODIUM CHLORIDE 0.9% 1000ML 1,000 ML IV ONE (00:01)
[2020-06-11] MEDS ORDERED: PIPERACILLIN/TAZOBACTAM 4.5 GM/120 ML BAG IV ONE (00:21)
[2020-06-11] MEDS ORDERED: PIPERACILL/TAZOBAC CONSULT ACTIVE PRN (00:21)
[2020-06-11] MEDS ORDERED: fentaNYL citrate 100 MCG/2 ML VIAL IV STA (00:32)
--- NOTE | 2020-06-11 00:40 | Emergency Department Note ---
ED Visit Note ED Physician Sign Out Note: 65 yr old female with history of Crohn's disease, Behcet's, GERD, Osteoporosis, who had Staci Fundoplication 15 yrs ago. 5 months ago she developed abdominal pain, found to have perforated bowel and after surgery here had left abdominal ostomy. Dealing with some irritation and sloughing of skin issues around ostomy recently leading to some steroid use for control. Today with worsening diffuse upper abdominal pain and decreased bowel outs. Patient with increasing pain and discomfort came to ED. Seen and evaluated by Dr Vaz. Diagnosed with incarcerated SBO at peristomal hernia. I evaluated patient at time of sign out (12:25am). Patient noting return of pain. Dr Gómez in to see patient while I was in room. After evaluating her he advised NG Tube, pain control and Hospitalist admission and he will discuss with her surgeon in the morning the plan. Lactic acid had already been ordered and pending at time of sign out to me, which fortunately returned normal. Dr Carlinlo aware of plan and down to evaluate patient as well. After multiple unsuccessful attempts at placement of NG tube by nursing I recontacted Dr Gómez, who arrived and attempted to place NG tube without success. Patient stable and no vomiting. Dada Cameron MD : Abdominal pain Qualifiers: Abdominal location: epigastric Qualified Code(s): R10.13 - Epigastric pain
--- NOTE | 2020-06-11 00:42 | Surgery Consultation ---
Date of Consultation June 11, 2020 Assessment & Plan (1) SBO (small bowel obstruction): pt is a 65 year-old female who presents to ER with 12 hours history abdominal pain, CT scan diagnosis: SBO, para-stoma hernia, IMP: SBO, para-stoma hernia, Plan, no emergent surgery indication now, conservative treatment now, hospitalist will admit pt to hospital, NPO, IV fluid, NG tube insertion, repeat labs in the morning, pt saw Dr. Beckham last week, pt still want Dr. Beckham take care her, I will contact Dr. Beckham in the morning, pt agrees with the plan, I answered all questions, I also indicate that pt may need surgery if she develops severe abdominal pain, increase WBC, or fever, pt understood, D/W ER attending. Present on Admission?: Yes (2) Parasternal hernia: (3) Abdominal pain: History of Present Illness History of Present Illness History of Present Illness General Chief complaint: Cardiac Assessment Stated complaint: CHEST/RIB/BACK PAIN Time Seen by Provider: 06/10/20 21:27 Source: patient Mode of arrival: ambulatory Limitations: no limitations History of Present Illness Maximum Pain Intensity: 9 Thi patient comes in with epigastric pain. It started around noon. It radiates to her back. She thought it was just gas she laid down and went to sleep when she woke up she felt better but it came back. She had an ostomy placed on December 24 she has had normal output she has some redness around this and been on some steroids. She has had some drainage from the site as well no fever or chills. No blood or melena in the stool. No numbness or weakness. Questionable pain with breathing hurts worse when she pushes on it or moves. No dysuria or hematuria. No travel. No known exposure to Covid or coronavirus. Her drove her and she is not driving. I ( Francisco Gómez MD) got a call for consult SBO, I reviewed pt's H/P, labs, CT scan with pt, pt has Bm in colostomy bag yesterday morning, pt develops abdominal pain about 12 hours ago, pt denies nausea, no vomiting, pt has been skin redness for last 2 weeks, pt had cheryl procedure for perforated diverticulitis by Dr. Beckham 5 months ago, pt saw Dr. Beckham last week for skin redness around stoma, Home Medications Medication Instructions Recorded Confirmed Type amlodipine 5 mg tablet 5 mg PO QAM tab 03/21/19 06/03/20 History cholecalciferol (vitamin D3) 125 5,000 unit PO QAM tab 03/21/19 06/03/20 History mcg (5,000 unit) tablet ferrous sulfate 325 mg (65 mg 325 mg PO QAM tab 03/21/19 06/03/20 History iron) tablet folic acid 1 mg tablet 1 mg PO QAM #30 tab 03/21/19 06/03/20 History multivitamin 1 tab PO QAM 03/21/19 06/03/20 History pantoprazole 40 mg tablet,delayed 40 mg PO BID #60 tab 03/21/19 06/03/20 History release infliximab 100 mg intravenous 10 mg/kg IV Q8WK ea 05/15/19 06/03/20 History solution Calcium 600 + D(3) 1 cap PO BID 12/13/19 06/03/20 History Gentamycin 1 dose INTRANASAL QAM 12/13/19 06/03/20 History cholestyramine (with sugar) 4 g PO QAM 12/13/19 06/03/20 History cranberry extract-vitamin C 1 cap PO QAM 12/13/19 06/03/20 History valacyclovir [Valtrex] 1,000 mg PO UD PRN 12/13/19 06/03/20 History fesoterodine 8 mg tablet,extended 8 mg PO DAILY #90 tab 04/15/20 06/03/20 Rx release 24 hr nystatin 100,000 unit/gram topical 1 applic TOPICAL BID #60 g 05/14/20 06/03/20 Rx powder desoximetasone 0.05 % topical cream 1 applic TOPICAL DAILY #60 g 05/24/20 06/03/20 Rx methylprednisolone 4 mg tablets in See Rx Instructions .ROUTE 05/27/20 06/03/20 Rx a dose pack .COMPLEX #21 ea mirabegron 50 mg tablet,extended 50 mg PO DAILY #90 tab 05/27/20 06/03/20 Rx release 24 hr Allergies Allergy/AdvReac Type Severity Reaction Status Date / Time pneumococcal vaccine Allergy Severe Severe Verified 06/11/20 00:24 swell/redness cephalexin Allergy Intermediate Diarrhea Verified 06/11/20 00:24 Past Med/Surg History Medical History (Updated 06/11/20 @ 00:12 by Lars Vaz MD) Crohns disease Degenerative disc disease History of anesthesia reaction difficulty waking History of kidney stones Hypertension Osteoarthritis Sleep apnea has testing done 12/12/2019--awaiting results Surgical History History of bilateral cataract extraction History of bilateral tubal ligation History of cholecystectomy History of colon resection (01/29/20) Exploratory Laparotomy; open Resection of Sigmoid Colon; creation of colostomy Dr. Beckham 01/29/20 History of colonoscopy with polypectomy History of cystoscopy History of nasal cauterization History of Staci fundoplication with hernia repair History of total vaginal hysterectomy Status post trigger finger release right hand Family History Sister Family history of diabetes mellitus Other No family history of adverse response to anesthesia Social History Smoking Status: Never smoker Second Hand Exposure: Yes (parents smoked/ smoked); Hx Alcohol Use: No Hx Substance Use: No Preferred Language: Latvian Communication Ability: Effective Visual Impairment: No Limitations Athletic Training Internship Required: No Beliefs That Will Affect Care: None marital status: Current Living Situation: Spouse Feels Safe at Home: Yes Assistive Devices: None Review of Systems A total of 10 systems reviewed and were otherwise negative Allergies Allergy/AdvReac Type Severity Reaction Status Date / Time pneumococcal vaccine Allergy Severe Severe Verified 06/11/20 00:24 swell/redness cephalexin Allergy Intermediate Diarrhea Verified 06/11/20 00:24 Home Medications Medication Instructions Recorded Confirmed Type amlodipine 5 mg tablet 5 mg PO QAM tab 03/21/19 06/11/20 History cholecalciferol (vitamin D3) 125 5,000 unit PO QAM tab 03/21/19 06/11/20 History mcg (5,000 unit) tablet ferrous sulfate 325 mg (65 mg 325 mg PO QAM tab 03/21/19 06/11/20 History iron) tablet folic acid 1 mg tablet 1 mg PO QAM #30 tab 03/21/19 06/11/20 History multivitamin 1 tab PO QAM 03/21/19 06/11/20 History pantoprazole 40 mg tablet,delayed 40 mg PO BID #60 tab 03/21/19 06/11/20 History release Calcium 600 + D(3) 1 cap PO BID 12/13/19 06/11/20 History cholestyramine (with sugar) 4 g PO QAM 12/13/19 06/11/20 History cranberry extract-vitamin C 1 cap PO QAM 12/13/19 06/11/20 History valacyclovir [Valtrex] 1,000 mg PO UD PRN 12/13/19 06/11/20 History fesoterodine 8 mg tablet,extended 8 mg PO DAILY #90 tab 04/15/20 06/11/20 Rx release 24 hr nystatin 100,000 unit/gram topical 1 applic TOPICAL BID #60 g 05/14/20 06/11/20 Rx powder desoximetasone 0.05 % topical cream 1 applic TOPICAL DAILY #60 g 05/24/20 06/11/20 Rx methylprednisolone 4 mg tablets in See Rx Instructions .ROUTE 05/27/20 06/11/20 Rx a dose pack .COMPLEX #21 ea mirabegron 50 mg tablet,extended 50 mg PO DAILY #90 tab 05/27/20 06/11/20 Rx release 24 hr clobetasol 1 applic TOPICAL BID 06/11/20 06/11/20 History hydrocodone-acetaminophen 1 tab PO DAILY PRN 06/11/20 06/11/20 History Patient History Medical History (Updated 06/11/20 @ 00:12 by Lars Vaz MD) Crohns disease Degenerative disc disease History of anesthesia reaction difficulty waking History of kidney stones Hypertension Osteoarthritis Sleep apnea has testing done 12/12/2019--awaiting results Surgical History History of bilateral cataract extraction History of bilateral tubal ligation History of cholecystectomy History of colon resection (01/29/20) Exploratory Laparotomy; open Resection of Sigmoid Colon; creation of colostomy Dr. Beckham 01/29/20 History of colonoscopy with polypectomy History of cystoscopy History of nasal cauterization History of Staci fundoplication with hernia repair History of total vaginal hysterectomy Status post trigger finger release right hand Family History Sister Family history of diabetes mellitus Other No family history of adverse response to anesthesia Social History Smoking Status: Never smoker Second Hand Exposure: Yes (parents smoked/ smoked); Hx Alcohol Use: No Hx Substance Use: No Preferred Language: Latvian Communication Ability: Effective Visual Impairment: No Limitations Athletic Training Internship Required: No Beliefs That Will Affect Care: None marital status: Current Living Situation: Spouse Feels Safe at Home: Yes Assistive Devices: None Physical Exam Constitutional: WD/WN, vitals as above well developed and well nourished Eyes: PERRL, conjunctivae normal, anicteric sclerae ENMT: external ear and nose normal, oropharynx normal Neck: trachea midline, no thyromegaly Respiratory: normal respiratory effort, lungs clear to auscultation normal respiratory effort Cardiovascular: RRR, no murmur, no edema Rate/Rhythm: regular rate and regular rhythm Gastrointestinal (Abdomen): Percussion/Palpation: abdomen soft some bulging around LLQ stoma area, some skin redness around stoma area, no stool in the bag, no distend abdomen, BS +, no rebound pain, Musculoskeletal: no cyanosis or clubbing, extremities motor strength 5/5 Skin: no rashes, warm and dry Neurologic: awake Psychiatric: Orientation: alert and oriented x 3 Results & Data ([facility]) Vital Signs (Past 12 Hours) Vital Signs Temp Pulse Pulse Resp BP BP Pulse Ox 06/11/20 00:15 86 20 144/76 H 100 06/10/20 22:37 85 22 145/69 H 98 06/10/20 21:58 97 06/10/20 21:57 74 18 158/82 H 97 06/10/20 21:12 36.8 C 90 22 162/82 H 99 Laboratory Results Abnormal lab results 06/10/20 06/10/20 Range/Units 21:23 21:23 APTT 33.3 H (21.0-31.0) Seconds Potassium 3.4 L (3.5-5.1) mmol/L Glucose 125 H (70-99) mg/dl Globulin 4.1 H (2.5-4.0) gm/dl Diagnostic Findings CT Scan 06/10/2020 SBO, para-stoma hernia, (1) Abdominal pain Abdominal location: epigastric Qualified Code(s): R10.13 - Epigastric pain
[2020-06-11] MEDS ORDERED: ONDANSETRON INJ 2 MG/ML 2 ML VIAL IV STA (01:11)
--- NOTE | 2020-06-11 01:21 | History & Physical Report ---
Date of Service June 11, 2020 Assessment & Plan (1) SBO (small bowel obstruction): Patient is a 65-year-old female with a past medical history of Crohn's disease, degenerative disc disease, history of anesthesia reaction, difficulty waking, history of kidney stones, hypertension, osteoarthritis, sleep apnea,, History of cholecystectomy, recent history January 29, 2020 of an ex lap with open resection of the sigmoid colon and creation of a colostomy by Dr. Dorantes, history of Niesen fundoplication with hernia repair who presents with approximately 12-hour history of significant abdominal pain diagnosed with a small bowel obstruction by imaging. Surgery was consulted and recommended medical management with close observation #Small bowel obstruction Patient presents with a clinical history and imaging findings consistent with a small bowel obstruction, furthermore given her past surgical history this would not be surprising. To that extent surgery was consulted confirming the obstruction, recommending medical management initially. They do not feel any need for emergent surgery at present, they would like an NG tube inserted, repeat labs, and the patient is requested to follow-up with Dr. Dorantes -Supportive care for now -IV Zosyn -A.m. CBC/CMP -Gentle fluid hydration -N.p.o. -NG tube in place #Abdominal pain Secondary to the above, well controlled at present, would attempt to limit opiates as much as possible as this could likely worsen gastrointestinal uday lity however we certainly do not want this patient to be in pain. - #Parasternal hernia Previously repaired, likely contributing to the above, monitor for now #Crohn's ileitis Likely contributing to above presentation, continue home medications #Electrolyte derangements Patient presents with hypokalemia, repleted potassium as indicated, monitor for further electrolyte derangements and replete as indicated -Replete electrolytes #Hypertension Continue home amlodipine FENa: N.p.o., NG tube in place Code Status: Full code DVT PPX:SCD PT/OT: Not indicated Dispo: Giulia Lagos MD PGY 3, FCM This chart was completed utilizing [employer] voice recognition software. Grammatical errors, random word insertions, pronoun errors, and in complete sentences are an occasional consequence of the system. Any questions or concerns about the content, text, or information contained within the body of this dictation should be addressed directly to the physician for clarification. (2) Abdominal pain: (3) Parasternal hernia: (4) Hypokalemia: (5) Crohn's ileocolitis: History of Present Illness Primary Care Provider: Dara Trejo DO Patient is a 65-year-old female with a past medical history of Crohn's disease, degenerative disc disease, history of anesthesia reaction, difficulty waking, history of kidney stones, hypertension, osteoarthritis, sleep apnea,, History of cholecystectomy, recent history January 29, 2020 of an ex lap with open resection of the sigmoid colon and creation of a colostomy by Dr. Dorantes, history of Niesen fundoplication with hernia repair who presents with approximately 12-hour history of significant abdominal pain. Patient reports she was in her normal state of health prior to experiencing epigastric pain at around 12 noon this morning. The pain radiated to her back, initially she thought it was just gas and took some Gas-X with no improvement. Her pain continued to worsen and she took a pain pill which did not alleviate her pain. She called her daughter over to replace her ostomy at that point, and the pain continued to increase. Eventually the pain became so severe she requested that her daughter bring her to the [facility] ER. The patient has a history of an ostomy being placed on December 24, she has had normal output and some redness around the site, she has been on some steroids for this. She has had no fevers or chills and some drainage from the site with no blood or melena in the stool, she reports no respiratory symptoms, no nausea, no vomiting no anorexia or other constitutional symptoms. She reported having a normal BM in her colostomy bag yesterday and has been voiding there is no known Covid exposures, her drove her in In the emergency room she was in significant pain, receiving morphine which helped her pain. Given her pain abdominal CT was obtained, formal read is pending however wet read demonstrates intermediate to high-grade small bowel obstruction at the level of her parastomal hernia there is no evidence of perforation or abscess, blood pressure was elevated, white count was within normal limits, labs were for the most part reasonable with the exception of a low potassium. Given her significant pain and imaging findings surgery was consulted. They feels that there is no need for emergent surgery, conservative treatment for now, they would like her admitted to the hospital, made n.p.o., IV fluids, NG tube, and repeat labs in the morning. Supportive care for now pending improvement. At present patient reports her pain is well controlled, all questions were answered, no acute concerns. Allergies Allergy/AdvReac Type Severity Reaction Status Date / Time pneumococcal vaccine Allergy Severe Severe Verified 06/11/20 00:24 swell/redness cephalexin Allergy Intermediate Diarrhea Verified 06/11/20 00:24 Home Medications Medication Instructions Recorded Confirmed Type amlodipine 5 mg tablet 5 mg PO QAM tab 03/21/19 06/11/20 History cholecalciferol (vitamin D3) 125 5,000 unit PO QAM tab 03/21/19 06/11/20 History mcg (5,000 unit) tablet ferrous sulfate 325 mg (65 mg 325 mg PO QAM tab 03/21/19 06/11/20 History iron) tablet folic acid 1 mg tablet 1 mg PO QAM #30 tab 03/21/19 06/11/20 History multivitamin 1 tab PO QAM 03/21/19 06/11/20 History pantoprazole 40 mg tablet,delayed 40 mg PO BID #60 tab 03/21/19 06/11/20 History release Calcium 600 + D(3) 1 cap PO BID 12/13/19 06/11/20 History cholestyramine (with sugar) 4 g PO QAM 12/13/19 06/11/20 History cranberry extract-vitamin C 1 cap PO QAM 12/13/19 06/11/20 History valacyclovir [Valtrex] 1,000 mg PO UD PRN 12/13/19 06/11/20 History fesoterodine 8 mg tablet,extended 8 mg PO DAILY #90 tab 04/15/20 06/11/20 Rx release 24 hr nystatin 100,000 unit/gram topical 1 applic TOPICAL BID #60 g 05/14/20 06/11/20 Rx powder desoximetasone 0.05 % topical cream 1 applic TOPICAL DAILY #60 g 05/24/20 06/11/20 Rx methylprednisolone 4 mg tablets in See Rx Instructions .ROUTE 05/27/20 06/11/20 Rx a dose pack .COMPLEX #21 ea mirabegron 50 mg tablet,extended 50 mg PO DAILY #90 tab 05/27/20 06/11/20 Rx release 24 hr clobetasol 1 applic TOPICAL BID 06/11/20 06/11/20 History hydrocodone-acetaminophen 1 tab PO DAILY PRN 06/11/20 06/11/20 History Past Med/Surg History Medical History Crohns disease Degenerative disc disease History of anesthesia reaction difficulty waking History of kidney stones Hypertension Osteoarthritis Sleep apnea has testing done 12/12/2019--awaiting results Surgical History History of bilateral cataract extraction History of bilateral tubal ligation History of cholecystectomy History of colon resection (01/29/20) Exploratory Laparotomy; open Resection of Sigmoid Colon; creation of colostomy Dr. Beckham 01/29/20 History of colonoscopy with polypectomy History of cystoscopy History of nasal cauterization History of Staci fundoplication with hernia repair History of total vaginal hysterectomy Status post trigger finger release right hand Family History Sister Family history of diabetes mellitus Other No family history of adverse response to anesthesia Social History Smoking Status: Never smoker Second Hand Exposure: Yes (parents smoked/ smoked); Hx Alcohol Use: No Hx Substance Use: No Preferred Language: Indonesian Communication Ability: Effective Visual Impairment: No Limitations Collections Technician Required: No Beliefs That Will Affect Care: None marital status: Current Living Situation: Spouse Other Information That Helps Us Care for You: No Feels Safe at Home: Yes Safety Concerns: Feels Safe At This Time Assistive Devices: Glasses and Walker Review of Systems Review of Systems: All systems reviewed & are unremarkable except as noted in HPI & below Physical Exam Physical Exam: General: In no acute distress HEENT: Normocephalic atraumatic Neck: Inspection, trachea midline Cardiac: Regular rate and rhythm, no murmurs rubs or gallops, normal S1, normal S2, negative pedal edema, negative calf tenderness Respiratory: Clear to auscultation bilaterally without significant wheezes, rales, rhonchi, symmetrical chest expansion bilaterally GI: Tender, distended, some fluid in stoma bag, hypoactive bowel sounds MSK: Moves all extremities Neuro: Alert and oriented x4 Psych: Calm and cooperative Results & Data Results & Data ([place]) Vital Signs (Past 12 Hours) Vital Signs Temp Pulse Pulse Resp BP BP Pulse Ox 06/11/20 00:53 88 20 151/80 H 92 06/11/20 00:15 86 20 144/76 H 100 06/10/20 22:37 85 22 145/69 H 98 06/10/20 21:58 97 06/10/20 21:57 74 18 158/82 H 97 06/10/20 21:12 36.8 C 90 22 162/82 H 99 Laboratory Results 06/11/20 06/11/20 06/10/20 Range/Units Unknown 00:10 21:23 WBC (4.8-10.8) K/uL RBC (4.2-5.4) M/uL Hgb (12.0-16.0) g/dL Hct (37-47) % MCV (80-100) fL MCH (25-34) pg MCHC (32-36) g/dL RDW Std Deviation (36.4-46.3) fL RDW Coeff of Kody (11.5-14.5) % Plt Count (130-400) K/uL MPV (7.4-10.4) fL Immature Gran % (Auto) % Neut % (Auto) % Lymph % (Auto) % [place] % (Auto) % Eos % (Auto) % Baso % (Auto) % Neut # (Auto) (1.4-6.5) K/uL Lymph # (Auto) (1.2-3.4) K/uL [place] # (Auto) (0.11-0.59) K/uL Eos # (Auto) (0-0.5) K/uL Baso # (Auto) (0-0.2) K/uL Immature Gran # (Auto) (0.00-0.02) K/uL PT (9.0-12.0) Seconds INR (0.9-1.1) APTT (21.0-31.0) Seconds PTT Ratio Sodium 140 (136-145) mmol/L Potassium 3.4 L (3.5-5.1) mmol/L Chloride 107 (98-107) mmol/L Carbon Dioxide 26 (21-32) mmol/L Anion Gap 7.0 (3-11) BUN 17 (7-18) mg/dl Creatinine 1.04 (0.6-1.2) mg/dl Est Cr Clr Drug Dosing 47.7 ml/min Est GFR ( Amer) 65.3 Est GFR (Non-Af Amer) 56.3 BUN/Creatinine Ratio 16.3 (10-20) Glucose 125 H (70-99) mg/dl Lactate 1.1 (0.4-2.0) mmol/L Calcium 9.1 (8.5-10.1) mg/dl Total Bilirubin 0.4 (0.2-1) mg/dl AST 21 (15-37) U/L ALT 22 (12-78) U/L Alkaline Phosphatase 99 (45-117) U/L Troponin I < 0.015 (0-0.045) ng/ml Total Protein 7.8 (6.4-8.2) gm/dl Albumin 3.7 (3.4-5.0) gm/dl Globulin 4.1 H (2.5-4.0) gm/dl Albumin/Globulin Ratio 0.9 (0.9-2) Lipase 132 (73-393) U/L SARS-CoV-2 Ag (Rapid) Negative (Negative) 06/10/20 06/10/20 Range/Units 21:23 21:23 WBC 7.25 (4.8-10.8) K/uL RBC 4.58 (4.2-5.4) M/uL Hgb 13.9 (12.0-16.0) g/dL Hct 42.3 (37-47) % MCV 92.4 (80-100) fL MCH 30.3 (25-34) pg MCHC 32.9 (32-36) g/dL RDW Std Deviation 42.9 (36.4-46.3) fL RDW Coeff of Kody 12.8 (11.5-14.5) % Plt Count 254 (130-400) K/uL MPV 9.7 (7.4-10.4) fL Immature Gran % (Auto) 0.3 % Neut % (Auto) 62.9 % Lymph % (Auto) 25.8 % [place] % (Auto) 7.9 % Eos % (Auto) 2.8 % Baso % (Auto) 0.3 % Neut # (Auto) 4.57 (1.4-6.5) K/uL Lymph # (Auto) 1.87 (1.2-3.4) K/uL [place] # (Auto) 0.57 (0.11-0.59) K/uL Eos # (Auto) 0.20 (0-0.5) K/uL Baso # (Auto) 0.02 (0-0.2) K/uL Immature Gran # (Auto) 0.02 (0.00-0.02) K/uL PT 10.4 (9.0-12.0) Seconds INR 1.0 (0.9-1.1) APTT 33.3 H (21.0-31.0) Seconds PTT Ratio 1.2 Sodium (136-145) mmol/L Potassium (3.5-5.1) mmol/L Chloride (98-107) mmol/L Carbon Dioxide (21-32) mmol/L Anion Gap (3-11) BUN (7-18) mg/dl Creatinine (0.6-1.2) mg/dl Est Cr Clr Drug Dosing ml/min Est GFR ( Amer) Est GFR (Non-Af Amer) BUN/Creatinine Ratio (10-20) Glucose (70-99) mg/dl Lactate (0.4-2.0) mmol/L Calcium (8.5-10.1) mg/dl Total Bilirubin (0.2-1) mg/dl AST (15-37) U/L ALT (12-78) U/L Alkaline Phosphatase (45-117) U/L Troponin I (0-0.045) ng/ml Total Protein (6.4-8.2) gm/dl Albumin (3.4-5.0) gm/dl Globulin (2.5-4.0) gm/dl Albumin/Globulin Ratio (0.9-2) Lipase (73-393) U/L SARS-CoV-2 Ag (Rapid) (Negative) Medications Administered Current Inpatient Medications Miscellaneous Information (Piperacill/Tazobac Consult Active) 1 ea N/A UD PRN PRN Reason: Consult Stop: 07/11/20 00:20 Code Status & VTE Plan Code Status full VTE Prophylaxis Plan VTE Prophylaxis will be ordered: No Reason for no VTE drug order: Contraindicated Supervising Physician Co-Signing Physician Notes Attending addendum: I have physically seen this patient, have supervised the medical residents activities, and agree with the H&P unless as otherwise noted. Assessment and Plan: Small bowel obstruction/parastomal hernia- 10 cm dilation approaching parastomal hernia. Evaluated by surgery this evening, asked to admit to medicine. NPO IV fluids Zofran 4 mg IV every 6 hours as needed Zosyn 4.5 g IV every 8 hours Famotidine 20 mg IV every 12 hours Consult surgery Remainder of orders and notations as noted Resident Activity Tracking Resident Involvement: Resident Care Provided Care Provided: Adult Hospital Medicine (1) Abdominal pain Abdominal location: epigastric Qualified Code(s): R10.13 - Epigastric pain
[2020-06-11] MEDS ORDERED: LORazepam 0.5 MG/1 ML VIAL IV STA (01:29)
[2020-06-11] MEDS ORDERED: ACETAMINOPHEN 325 MG TAB PO PRN (01:36)
[2020-06-11] MEDS ORDERED: MAGNESIUM HYDROXIDE SUSP 30 ML UDC PO PRN (01:36)
[2020-06-11] MEDS ORDERED: ALUMINUM/MAGNESIUM SUSP 30 ML UDC PO PRN (01:36)
[2020-06-11] MEDS ORDERED: POLYETHYLENE (MIRALAX) 17 GM PACK PO PRN (01:36)
[2020-06-11] MEDS ORDERED: MoRPHine SULFATE 2 MG/ML CARP IV PRN (01:41)
[2020-06-11] MEDS ORDERED: HYDROmorphone INJ 0.5 MG/0.5 ML SYR IV STA (01:53)
[2020-06-11] MEDS ORDERED: HYDROCODONE/ACETAMOPHEN 5/325MG TAB PO PRN (03:10)
[2020-06-11] MEDS ORDERED: ONDANSETRON INJ 2 MG/ML 2 ML VIAL ONE (04:01)
[2020-06-11] MEDS ORDERED: MoRPHine SULFATE 2 MG/ML CARP ONE (04:01)
[2020-06-11] MEDS: LACTATED RINGER'S 1,000 ML IV SCH ×3 (04:04→21:57)
[2020-06-11] MEDS: PROMETHAZINE HCL 12.5 MG in SODIUM CHLORIDE 0.9% 50 ML IV PRN (05:59)
[2020-06-11] MEDS ORDERED: PIPERACILLIN/TAZOBACTAM 3.375 GM in DEXTROSE 5% 100 ML IV SCH (06:00)
[2020-06-11 06:49] LABS: Basophils # (auto) 0.02 K/uL (0-0.2); Basophils % (auto) 0.2 %; Eosinophils # (auto) 0.03 K/uL (0-0.5); Eosinophils % (auto) 0.3 %; Hematocrit (blood only) 41.5 % (37-47); Hemoglobin 13.6 g/dL (12.0-16.0); Immature Granulocytes # (auto) 0.09 K/uL (0.00-0.02); Lymphocytes # (auto) 0.96 K/uL (1.2-3.4); Lymphocytes % (auto) 10.9 %; Mean Corpuscular Hgb Conc 32.8 g/dL (32-36); Mean Corpuscular Volume 91.4 fL (80-100); Mean Platelet Volume 10.6 fL (7.4-10.4); Monocytes # (auto) 0.43 K/uL (0.11-0.59); Monocytes % (auto) 4.9 %; Neutrophils # (auto) 7.29 K/uL (1.4-6.5); Neutrophils % (auto) 82.7 %; Platelet Count 166 K/uL (130-400); RDW Coefficient of Variation 12.7 % (11.5-14.5); RDW Standard Deviation 42.5 fL (36.4-46.3); Red Blood Count 4.54 M/uL (4.2-5.4); White Blood Count 8.82 K/uL (4.8-10.8)
--- NOTE | 2020-06-11 07:11 | CT Scan Report ---
CT abd pelvis IV con only CLINICAL HISTORY: Epigastric pain. Possible bowel obstruction. History of colostomy. COMPARISON STUDY: 04/10/2020 TECHNIQUE: The patient was scanned in a dynamic helical fashion during intravenous administration of 93 cc of Optiray 320 A dose lowering technique was utilized adhering to the principles of ALARA. CT DOSE: 539.96 mGy.cm FINDINGS: Lower chest: There is a hiatal hernia with evidence of a prior Staci fundoplication. There is minor basilar atelectasis. Liver: The contrast-enhanced liver is normal in size, contour, and attenuation. There is no intrahepa tic biliary ductal dilatation. The hepatic veins and portal veins are patent. Gallbladder: Surgically absent Spleen: There is a 12 mm splenic hypodense lesion unchanged from the prior study Pancreas: Unremarkable. Adrenal glands: There is a 13 mm left adrenal nodule. This remains unchanged and appear to represent an adenoma on the prior noncontrast study Kidneys: There is no hydronephrosis. There is 7 mm right renal hypodensity likely representing a cyst Bowel: The patient is status post a sigmoid resection with a blind-ending sigmoid and a left lower qu adrant colostomy. There is a parastomal hernia present. There are multiple mildly dilated small bowel loops with air-fluid levels. There is dilatation of the bowel within the parastomal hernia with mese nteric edema. The bowel obstruction at this level is suspected. Peritoneum: There is no intraperitoneal free air or abdominal ascites. Vasculature: The abdominal aorta is normal in course and caliber. Adenopathy: None. Pelvic viscera: The uterus is surgically absent. Skeletal structures: No destructive osseous lesions are seen. IMPRESSION: 1. Small bowel obstruction at the level of a large left lower quadrant parastomal hernia. There is me senteric edema within the parastomal hernia. 2. No evidence of free intraperitoneal air 3. Hiatal hernia status post Staci fundoplication 4. Surgically absent gallbladder and uterus 5. Stable left adrenal adenoma 6. Stable 12 mm splenic hypodensity ACT 112: Negative or not required by law. Electronically signed by: Tyshawn Herrera M.D. 06/11/2020 7:10 AM
[2020-06-11 07:21] LABS: Albumin Level 3.4 gm/dl (3.4-5.0); BUN Creatinine Ratio 17.2 (10-20); Calcium 8.4 mg/dl (8.5-10.1); Creatinine Clr Calc Pharmacy 53.9 ml/min; Est GFR (African American) 74.7; Est GFR (Non-African American) 64.5; Potassium 3.9 mmol/L (3.5-5.1)
[2020-06-11 07:24] LABS: Albumin Globulin Ratio 0.9 (0.9-2); Bilirubin,Total 0.5 mg/dl (0.2-1); Globulin 3.6 gm/dl (2.5-4.0)
[2020-06-11] MEDS ORDERED: hydrALAZINE HCL 20 MG/ML VIAL IV PRN (07:59)
--- NOTE | 2020-06-11 08:12 | XRay Report ---
XR chest 1V portable HISTORY: Atypical Chest Pain COMPARISON: Chest 12/25/2019. FINDINGS: The lungs are clear. No pleural effusions. No pneumothorax. The heart is normal in size. Mo derate hiatus hernia. IMPRESSION: No acute process. ACT 112: Negative or not required by law. Electronically signed by: Vlad Richards M.D. 06/11/2020 8:11 AM
[2020-06-11] MEDS: CALCIUM 600MG + VIT D 400 IU TAB PO SCH ×2 (08:21→21:11)
[2020-06-11] MEDS: FERROUS SULFATE 325 MG TAB PO SCH (08:21)
[2020-06-11] MEDS: MULTIVITAMIN TAB PO SCH (08:21)
[2020-06-11] MEDS: NYSTATIN POWDER 15GM BTL EXT SCH ×2 (08:21→21:57)
[2020-06-11] MEDS: FOLIC ACID 1 MG TAB PO SCH (08:21)
[2020-06-11] MEDS: amLODIPine BESYLATE 5 MG TAB PO SCH (08:22)
[2020-06-11] MEDS: MIRABEGRON ER 25 MG TAB PO SCH (08:22)
[2020-06-11] MEDS: CHOLECALCIFEROL 1,000 UNITS 25 MCG TAB PO SCH (08:22)
--- NOTE | 2020-06-11 08:27 | XRay Report ---
XR chest 1V portable HISTORY: NG Tube placement COMPARISON: Chest 06/10/2020. FINDINGS: Nasogastric tube is looped within the distal esophagus/hiatus hernia with the tip extending to the midesophagus. The lungs are clear. No pleural effusions. No pneumothorax. The heart is normal in size. IMPRESSION: Nasogastric tube is looped within the distal esophagus/hiatus hernia with the tip extending to the mi d esophagus. This should be removed/repositioned. This finding was called/faxed to referring physicia n following dictation. ACT 112: Negative or not required by law. Electronically signed by: Vlad Richards M.D. 06/11/2020 8:25 AM
[2020-06-11] MEDS ORDERED: NON-FORMULARY MEDICATION (Cranberry Extract-Vitamin C 250-60 mg Capsule) PO SCH (09:00)
[2020-06-11] MEDS ORDERED: PANTOprazole 40 MG TAB PO SCH (09:00)
[2020-06-11] MEDS: PANTOprazole 40 MG in SYRINGE 0 ML IV SCH ×2 (09:25→20:45)
[2020-06-11] MEDS: CHOLESTYRAMINE LIGHT 4 GM PKT PO SCH (09:26)
--- NOTE | 2020-06-11 09:28 | Surgery Progress Note ---
Date of Service June 11, 2020 Assessment & Plan (1) Small bowel obstruction: Patient has a history of ex-lap, sigmoid resection, creation of colostomy on 12/25/[address] Beckham- now here with [address] day of abdominal pain CT scan from yesterday revealed a small bowel obstruction at the level of a large left lower quadrant parastomal hernia, there is mesenteric edema within the parastomal hernia Multiple attempts made at NGT placement yesterday without success Today WBC 8, Cr 0.9; HR and BP stable On examination patient has some ttp in the epigastric and LLQ regions; some fullness noted in LLQ, no stool/gas noted in colostomy bag today For now continue conservative measures, may need to reconsider NGT if N/V develops and abd. symptoms worsen Will discuss with Dr. Beckham Admission and Anticipated Discharge Date Admission Date: June 11, 2020 Subjective Patient reports abdominal pain started around noon yesterday, mostly in the epigastric region that radiated towards the back. It worsened in severity to the point she could not walk and she came to the ER for further evaluation. She reports eating an egg and haines yesterday for breakfast. She had some dry heaving yesterday, no active vomiting. Reports having stool in her colostomy bag yesterday, nothing today. Patient currently denies nausea this morning. Says her abdominal pain feels about the same. Of note the patient was seen by Dr. Beckham a couple wks ago with a rash on her abdomen, she was prescribed a course of steroids and believes her rash is improved. She also was taken ques mejía at home for diarrhea and she says her last dose was on Wednesday. Physical Exam Physical Exam: drowsy, but easily woken and is communicative Constitutional: well developed and well nourished; no acute distress Respiratory: normal respiratory effort Gastrointestinal (Abdomen): Inspection/Auscultation: + abdomen distended Percussion/Palpation: + abdomen tender (epigastric regions and kaya-ostomy) and abdomen soft + ostomy present in LLQ, pink and viable, no stool/gas in bag noted at this time; skin erythema noted kaya-colostomy bag, some LLQ fullness/bulging Results & Data ([facility]) Vital Signs (Past 12 Hours) Vital Signs Temp Pulse Pulse Pulse Resp BP BP 06/11/20 07:19 36.3 C L 79 16 113/75 06/11/20 03:00 36.3 C L 81 16 120/72 06/11/20 02:36 82 16 110/72 06/11/20 00:53 88 20 151/80 H 06/11/20 00:15 86 20 144/76 H 06/10/20 22:37 85 22 145/69 H 06/10/20 21:58 06/10/20 21:57 74 18 158/82 H Pulse Ox 06/11/20 07:19 98 06/11/20 03:00 95 06/11/20 02:36 97 06/11/20 00:53 92 06/11/20 00:15 100 06/10/20 22:37 98 06/10/20 21:58 97 06/10/20 21:57 97 PG Care Time/CCT Total # of Minutes Spent Total Time Spent with Patient: Total time spent is greater than 50% in coordination of care (as documented) at patient's floor/unit and/or counseling patient: Coding Level of Care Code 60501 Subseq Hosp Care Lvl 1 Diagnoses Small bowel obstruction K56.609
[2020-06-11] MEDS: ONDANSETRON INJ 2 MG/ML 2 ML VIAL IV PRN ×2 (09:32→18:06)
--- NOTE | 2020-06-11 09:47 | Hospitalist Progress Note ---
Date of Service June 11, 2020 Assessment & Plan (1) Small bowel obstruction: SBO (small bowel obstruction): Patient is a 65-year-old female with a past medical history of Crohn's disease, degenerative disc disease, history of anesthesia reaction, difficulty waking, history of kidney stones, hypertension, osteoarthritis, sleep apnea,, History of cholecystectomy, recent history January 29, 2020 of an ex lap with open resection of the sigmoid colon and creation of a colostomy by Dr. Beckham, history of Niesen fundoplication with hernia repair who presents with approximately 12-hour history of significant abdominal pain diagnosed with a small bowel obstruction by imaging. Surgery was consulted and recommended medical management with close observation #1Small bowel obstruction * Patient presents with a clinical history and imaging findings consistent with a small bowel obstruction, furthermore given her past surgical history this would not be surprising. To that extent surgery was consulted confirming the obstruction, recommending medical management initially. They do not feel any need for emergent surgery at present, they would like an NG tube inserted, repeat labs, and the patient is requested to follow-up with Dr. Beckham * NGT was inserted last evening by Dr. Gómez for n/v and imaging showed coiled in esophagus and was discontinued * Patient then developed nausea and dry heaving and we reached back out to general surgery for re-evaluation given Dr. Gómez placed first NGT -- appreciate assistance/recommendations * Will continue with supportive treatment for now * Repeat films with persistent bowel obstruction * NPO * LR @ 110cc/hr * Serial imaging/examination * Electrolyte replacement as needed * Will discontinue abx given no s/sx infection or plans for surgery at this time Abdominal pain * Secondary to the above * Controlled at present (to 12/19 from 03/21) would attempt to limit opiates as much as possible as this could likely worsen gastrointestinal motility however we certainly do not want this patient to be in pain. Parasternal hernia * Previously repaired, likely contributing to the above, monitor for now Crohn's ileitis * Likely contributing to above presentation, continue home medications Electrolyte derangements * Patient presents with hypokalemia, repleted potassium as indicated with repeat K 3.9. * No mag level was checked -- will add to AM labs and replete as neccessary Hypertension * Continue home amlodipine once able to take PO * Hydralazine prn * BP stable 113/75 GERD * Protonix -- will utilize IVP as patient NPO DVT PPX: * SCD * Ambulation encouraged * Will hold off chemoproph in case of surgery but if continues to remain inpatient past tomorrow consider adding Admission and Anticipated Discharge Date Admission Date: June 11, 2020 Subjective BRIDGE NOTE: KUB showed NGT coiled in esophagus and was removed. Patient with dry heeving this morning. Pain on admission 9-10/10 and currently 6/10 but did have some pain medication recently. Located on her left upper quadrant with radiation to her back. Some itchiness around her stoma site. No output today or last evening. No flatus. Had been using topical steroid cream but nothing since admission. Discussed will have wound RN assess/possibly change if needed. No fever, chills, chest pain or shortness of breath noted. Dr Beckham came up to evaluated patient and patient states they are repeating imaging and will continue with conservative treatment for now but surgery may be warranted depending on how she does. Physical Exam Constitutional: well developed and + obese; no acute distress and + uncomfortable Eyes: + anicteric sclerae and PERRL Neck: normal visual inspection and trachea midline Respiratory: normal respiratory effort, lungs clear to auscultation Auscultation: + diminished lung sounds Cardiovascular: RRR, no murmur, no edema Gastrointestinal (Abdomen): stoma LLQ some erythema/scabbing around -- patient currently itching no output noted tender to palpation diffusely, however primarily LUQ/LLQ hypoactive bowel sounds noted RUQ/RLQ, absent LLQ/LUQ Skin: cool, dry Psychiatric: Orientation: alert and oriented x 3 Results & Data Results & Data ([facility]) Vital Signs (Past 12 Hours) Vital Signs Temp Pulse Pulse Pulse Resp BP BP 06/11/20 07:19 36.3 C L 79 16 113/75 06/11/20 03:00 36.3 C L 81 16 120/72 06/11/20 02:36 82 16 110/72 06/11/20 00:53 88 20 151/80 H 06/11/20 00:15 86 20 144/76 H 06/10/20 22:37 85 22 145/69 H 06/10/20 21:58 06/10/20 21:57 74 18 158/82 H Pulse Ox 06/11/20 07:19 98 06/11/20 03:00 95 06/11/20 02:36 97 06/11/20 00:53 92 06/11/20 00:15 100 06/10/20 22:37 98 06/10/20 21:58 97 06/10/20 21:57 97 Laboratory Results 06/11/20 06/11/20 06/11/20 Range/Units Unknown 06:12 06:12 WBC 8.82 (4.8-10.8) K/uL RBC 4.54 (4.2-5.4) M/uL Hgb 13.6 (12.0-16.0) g/dL Hct 41.5 (37-47) % MCV 91.4 (80-100) fL MCH 30.0 (25-34) pg MCHC 32.8 (32-36) g/dL RDW Std Deviation 42.5 (36.4-46.3) fL RDW Coeff of Kody 12.7 (11.5-14.5) % Plt Count 166 (130-400) K/uL MPV 10.6 H (7.4-10.4) fL Immature Gran % (Auto) 1.0 % Neut % (Auto) 82.7 % Lymph % (Auto) 10.9 % [place] % (Auto) 4.9 % Eos % (Auto) 0.3 % Baso % (Auto) 0.2 % Neut # (Auto) 7.29 H (1.4-6.5) K/uL Lymph # (Auto) 0.96 L (1.2-3.4) K/uL [place] # (Auto) 0.43 (0.11-0.59) K/uL Eos # (Auto) 0.03 (0-0.5) K/uL Baso # (Auto) 0.02 (0-0.2) K/uL Immature Gran # (Auto) 0.09 H (0.00-0.02) K/uL PT (9.0-12.0) Seconds INR (0.9-1.1) APTT (21.0-31.0) Seconds PTT Ratio Sodium 137 (136-145) mmol/L Potassium 3.9 (3.5-5.1) mmol/L Chloride 106 (98-107) mmol/L Carbon Dioxide 25 (21-32) mmol/L Anion Gap 7.0 (3-11) BUN 16 (7-18) mg/dl Creatinine 0.93 (0.6-1.2) mg/dl Est Cr Clr Drug Dosing 53.9 ml/min Est GFR ( Amer) 74.7 Est GFR (Non-Af Amer) 64.5 BUN/Creatinine Ratio 17.2 (10-20) Glucose 127 H (70-99) mg/dl Lactate (0.4-2.0) mmol/L Calcium 8.4 L (8.5-10.1) mg/dl Total Bilirubin 0.5 (0.2-1) mg/dl AST 54 H (15-37) U/L ALT 43 (12-78) U/L Alkaline Phosphatase 89 (45-117) U/L Troponin I (0-0.045) ng/ml Total Protein 7.0 (6.4-8.2) gm/dl Albumin 3.4 (3.4-5.0) gm/dl Globulin 3.6 (2.5-4.0) gm/dl Albumin/Globulin Ratio 0.9 (0.9-2) Lipase (73-393) U/L SARS-CoV-2 Ag (Rapid) Negative (Negative) 06/11/20 06/10/20 06/10/20 Range/Units 00:10 21:23 21:23 WBC (4.8-10.8) K/uL RBC (4.2-5.4) M/uL Hgb (12.0-16.0) g/dL Hct (37-47) % MCV (80-100) fL MCH (25-34) pg MCHC (32-36) g/dL RDW Std Deviation (36.4-46.3) fL RDW Coeff of Kody (11.5-14.5) % Plt Count (130-400) K/uL MPV (7.4-10.4) fL Immature Gran % (Auto) % Neut % (Auto) % Lymph % (Auto) % [place] % (Auto) % Eos % (Auto) % Baso % (Auto) % Neut # (Auto) (1.4-6.5) K/uL Lymph # (Auto) (1.2-3.4) K/uL [place] # (Auto) (0.11-0.59) K/uL Eos # (Auto) (0-0.5) K/uL Baso # (Auto) (0-0.2) K/uL Immature Gran # (Auto) (0.00-0.02) K/uL PT 10.4 (9.0-12.0) Seconds INR 1.0 (0.9-1.1) APTT 33.3 H (21.0-31.0) Seconds PTT Ratio 1.2 Sodium 140 (136-145) mmol/L Potassium 3.4 L (3.5-5.1) mmol/L Chloride 107 (98-107) mmol/L Carbon Dioxide 26 (21-32) mmol/L Anion Gap 7.0 (3-11) BUN 17 (7-18) mg/dl Creatinine 1.04 (0.6-1.2) mg/dl Est Cr Clr Drug Dosing 47.7 ml/min Est GFR ( Amer) 65.3 Est GFR (Non-Af Amer) 56.3 BUN/Creatinine Ratio 16.3 (10-20) Glucose 125 H (70-99) mg/dl Lactate 1.1 (0.4-2.0) mmol/L Calcium 9.1 (8.5-10.1) mg/dl Total Bilirubin 0.4 (0.2-1) mg/dl AST 21 (15-37) U/L ALT 22 (12-78) U/L Alkaline Phosphatase 99 (45-117) U/L Troponin I < 0.015 (0-0.045) ng/ml Total Protein 7.8 (6.4-8.2) gm/dl Albumin 3.7 (3.4-5.0) gm/dl Globulin 4.1 H (2.5-4.0) gm/dl Albumin/Globulin Ratio 0.9 (0.9-2) Lipase 132 (73-393) U/L SARS-CoV-2 Ag (Rapid) (Negative) 06/10/20 Range/Units 21:23 WBC 7.25 (4.8-10.8) K/uL RBC 4.58 (4.2-5.4) M/uL Hgb 13.9 (12.0-16.0) g/dL Hct 42.3 (37-47) % MCV 92.4 (80-100) fL MCH 30.3 (25-34) pg MCHC 32.9 (32-36) g/dL RDW Std Deviation 42.9 (36.4-46.3) fL RDW Coeff of Kody 12.8 (11.5-14.5) % Plt Count 254 (130-400) K/uL MPV 9.7 (7.4-10.4) fL Immature Gran % (Auto) 0.3 % Neut % (Auto) 62.9 % Lymph % (Auto) 25.8 % [place] % (Auto) 7.9 % Eos % (Auto) 2.8 % Baso % (Auto) 0.3 % Neut # (Auto) 4.57 (1.4-6.5) K/uL Lymph # (Auto) 1.87 (1.2-3.4) K/uL [place] # (Auto) 0.57 (0.11-0.59) K/uL Eos # (Auto) 0.20 (0-0.5) K/uL Baso # (Auto) 0.02 (0-0.2) K/uL Immature Gran # (Auto) 0.02 (0.00-0.02) K/uL PT (9.0-12.0) Seconds INR (0.9-1.1) APTT (21.0-31.0) Seconds PTT Ratio Sodium (136-145) mmol/L Potassium (3.5-5.1) mmol/L Chloride (98-107) mmol/L Carbon Dioxide (21-32) mmol/L Anion Gap (3-11) BUN (7-18) mg/dl Creatinine (0.6-1.2) mg/dl Est Cr Clr Drug Dosing ml/min Est GFR ( Amer) Est GFR (Non-Af Amer) BUN/Creatinine Ratio (10-20) Glucose (70-99) mg/dl Lactate (0.4-2.0) mmol/L Calcium (8.5-10.1) mg/dl Total Bilirubin (0.2-1) mg/dl AST (15-37) U/L ALT (12-78) U/L Alkaline Phosphatase (45-117) U/L Troponin I (0-0.045) ng/ml Total Protein (6.4-8.2) gm/dl Albumin (3.4-5.0) gm/dl Globulin (2.5-4.0) gm/dl Albumin/Globulin Ratio (0.9-2) Lipase (73-393) U/L SARS-CoV-2 Ag (Rapid) (Negative) Diagnostic Findings Chest/Abdomen X-ray IMPRESSION: 1. No active disease in the chest. 2. Persistent small bowel obstruction. 3. Hiatal hernia. PG Care Time/CCT Total # of Minutes Spent Total Time Spent with Patient: Total time spent is greater than 50% in coordination of care (as documented) at patient's floor/unit and/or counseling patient: Coding Level of Care Code None Diagnoses Small bowel obstruction K56.609
[2020-06-11] MEDS ORDERED: MoRPHine SULFATE 2 MG/ML CARP IV STA (10:40)
--- NOTE | 2020-06-11 13:40 | XRay Report ---
PA CHEST WITH ABDOMINAL SERIES CLINICAL HISTORY: Small bowel obstruction. FINDINGS: A PA chest radiograph is compared to study dated 06/11/2020. The cardiomediastinal silhouette is unrem arkable. Foci of linear atelectasis are present in the lower lobes. No airspace consolidation or pleu ral effusion is identified. Hiatal hernia is noted. No pneumothorax is seen. The skeletal structures are osteopenic. The bony thorax is grossly intact. Supine and erect abdominal radiographs are correlated with abdominal CT dated 06/10/2020. Cholecystec lisa clips are seen in the right upper quadrant. There is evidence of persistent small bowel obstruct ion with numerous air-fluid levels. Fecal retention is noted in the right colon. Ostomy is noted in t he left lower quadrant. No evidence of intraperitoneal free air is seen. There are no abnormal abdomi nal calcifications. Pelvic phleboliths are observed. The bladder is distended. The lumbosacral spine and bony pelvis appear intact. IMPRESSION: 1. No active disease in the chest. 2. Persistent small bowel obstruction. 3. Hiatal hernia. ACT 112: Negative or not required by law. Electronically signed by: Ignacio Askew M.D. 06/11/2020 1:39 PM
--- NOTE | 2020-06-11 15:25 | Electrocardiogram Report ---
Test Reason : Blood Pressure : / mmHG Vent. Rate : 079 BPM Atrial Rate : 079 BPM P-R Int : 128 ms QRS Dur : 092 ms QT Int : 390 ms P-R-T Axes : 046 -18 001 degrees QTc Int : 447 ms Normal sinus rhythm Minimal voltage criteria for LVH, may be normal variant Borderline ECG When compared with ECG of 25-DEC-2019 11:40, Premature ventricular complexes are no longer Present Nonspecific T wave abnormality no longer evident in Anterolateral leads Confirmed by Jeramie Canas ([id number]) on 06/11/2020 3:24:39 PM Referred By: REFERRED SELF Confirmed By:Rickie Canas
[2020-06-11] MEDS: MoRPHine SULFATE 4 MG/ML 1 ML CARP\\VIAL IV PRN ×2 (18:08→21:12)
[2020-06-11] MEDS: diphenhydrAMINE 50 MG/ML VIAL IV PRN (23:56)
[2020-06-12] MEDS: ONDANSETRON INJ 2 MG/ML 2 ML VIAL IV PRN ×3 (03:08→19:58)
[2020-06-12] MEDS: MoRPHine SULFATE 4 MG/ML 1 ML CARP\\VIAL IV PRN ×3 (03:09→19:58)
[2020-06-12] MEDS: LACTATED RINGER'S 1,000 ML IV SCH ×3 (06:32→19:57)
--- NOTE | 2020-06-12 07:23 | Surgery Progress Note ---
Date of Service June 12, 2020 Assessment & Plan (1) Small bowel obstruction: Long discussion with Audrey regarding her plan of therapy at this time ideally would be beneficial to get her GI tract functional so that we could bowel proper and proceed with reversal colostomy since she has had a chronic problem with skin irritation around the ostomy site and stating the appliance. Poorly fitting causing the skin reaction At this time I am going to instill some enema through the colostomy in hopes to restart her GI function with the anticipation to bowel prep and do the surgery but if that is unsuccessful as she continues to have obstruction that we are forced to operate on her and release the obstruction but with no bowel prep there would be unlikely that I will be able to reverse her colostomy at the same time She understands her dilemma at this time and will reevaluate her in the morning and further recommendations will be made at that time Also of note her hemoglobin always been about 10 or 11 this time but about 13 indicating that she still has an element of dehydration therefore I increased her IV to 150 cc/hr at this time and will keep that going for today All her questions were answered Present on Admission?: Yes Admission and Anticipated Discharge Date Admission Date: June 11, 2020 Subjective Audery overall had a good night she denies any nausea no vomiting abdominal pain seems better states her urine is slow but dark yellow no real output through the colostomy no gas or enteric contents Physical Exam Physical Exam: She is alert comfortable voicing no concern at this time Oral mucosa appears less scaling than yesterday Abdominal exam compared to yesterday is improved colostomy has no output there is no skin irritation around the colostomy the fiery reaction that she had few weeks ago is all disappeared on examination around the stomal area there is no tenderness although radiographically there is seem to be a hernia and around the site Extremities no pedal edema Results & Data ([facility]) Vital Signs (Past 12 Hours) Vital Signs Temp Pulse Pulse Resp BP Pulse Ox Pulse Ox 06/12/20 02:45 81 91 06/11/20 23:32 37.3 C 85 14 124/77 93 06/11/20 21:41 92 H 91 lab from yesterday was reviewed as was the acute abdominal series which shows some small bowel distention possibly ongoing obstruction ileus also the bladder was distended but this is a chronic problem for Audrey since she had Botox injection in her bladder she does show also that the significant fecal load in the right colon PG Care Time/CCT Total # of Minutes Spent Total Time Spent with Patient: Total time spent is greater than 50% in coordination of care (as documented) at patient's floor/unit and/or counseling patient: Coding Level of Care Code 34713 Subseq Hosp Care Lvl 3 Diagnoses Small bowel obstruction K56.609
[2020-06-12] MEDS ORDERED: SOD PHOSPHATE/SOD BIPHOSPHATE ENEMA 132 ML BTL PR ONE ×2 (07:25→13:00)
[2020-06-12 07:33] LABS: Basophils # (auto) 0.02 K/uL (0-0.2); Basophils % (auto) 0.3 %; Eosinophils % (auto) 3.4 %; Hematocrit (blood only) 37.3 % (37-47); Hemoglobin 12.1 g/dL (12.0-16.0); Immature Granulocytes # (auto) 0.01 K/uL (0.00-0.02); Immature Granulocytes % (auto) 0.2 %; Lymphocytes # (auto) 2.01 K/uL (1.2-3.4); Lymphocytes % (auto) 33.7 %; Mean Corpuscular Hemoglobin 29.7 pg (25-34); Mean Corpuscular Hgb Conc 32.4 g/dL (32-36); Mean Corpuscular Volume 91.6 fL (80-100); Mean Platelet Volume 9.5 fL (7.4-10.4); Monocytes # (auto) 0.51 K/uL (0.11-0.59); Monocytes % (auto) 8.6 %; Neutrophils # (auto) 3.21 K/uL (1.4-6.5); Neutrophils % (auto) 53.8 %; Platelet Count 180 K/uL (130-400); RDW Coefficient of Variation 12.7 % (11.5-14.5); RDW Standard Deviation 42.9 fL (36.4-46.3); Red Blood Count 4.07 M/uL (4.2-5.4); White Blood Count 5.96 K/uL (4.8-10.8)
[2020-06-12] MEDS: PANTOprazole 40 MG in SYRINGE 0 ML IV SCH ×2 (07:34→19:57)
[2020-06-12] MEDS: MIRABEGRON ER 25 MG TAB PO SCH (07:40)
[2020-06-12] MEDS: MULTIVITAMIN TAB PO SCH (07:40)
[2020-06-12] MEDS: FERROUS SULFATE 325 MG TAB PO SCH (07:40)
[2020-06-12] MEDS: FOLIC ACID 1 MG TAB PO SCH (07:40)
[2020-06-12] MEDS: NYSTATIN POWDER 15GM BTL EXT SCH ×2 (07:40→19:54)
[2020-06-12] MEDS: amLODIPine BESYLATE 5 MG TAB PO SCH (07:40)
[2020-06-12] MEDS: CALCIUM 600MG + VIT D 400 IU TAB PO SCH ×2 (07:40→19:53)
[2020-06-12] MEDS: CHOLECALCIFEROL 1,000 UNITS 25 MCG TAB PO SCH (07:41)
[2020-06-12 08:15] LABS: Albumin Globulin Ratio 0.8 (0.9-2); Albumin Level 2.6 gm/dl (3.4-5.0); BUN Creatinine Ratio 11.1 (10-20); Bilirubin,Total 0.6 mg/dl (0.2-1); Calcium 8.2 mg/dl (8.5-10.1); Creatinine Clr Calc Pharmacy 53.9 ml/min; Est GFR (African American) 74.7; Est GFR (Non-African American) 64.5; Globulin 3.2 gm/dl (2.5-4.0); Magnesium 1.8 mg/dl (1.8-2.4); Potassium 3.7 mmol/L (3.5-5.1); Total Protein 5.8 gm/dl (6.4-8.2)
--- NOTE | 2020-06-12 09:52 | Hospitalist Progress Note ---
Date of Service June 12, 2020 Assessment & Plan (1) Small bowel obstruction: SBO (small bowel obstruction): Patient is a 65-year-old female with a past medical history of Crohn's disease, degenerative disc disease, history of anesthesia reaction, difficulty waking, history of kidney stones, hypertension, osteoarthritis, sleep apnea,, History of cholecystectomy, recent history January 29, 2020 of an ex lap with open resection of the sigmoid colon and creation of a colostomy by Dr. Beckham, history of Niesen fundoplication with hernia repair who presents with approximately 12-hour history of significant abdominal pain diagnosed with a small bowel obstruction by imaging. Surgery was consulted and recommended medical management with close observation #1Small bowel obstruction * Patient presents with a clinical history and imaging findings consistent with a small bowel obstruction, furthermore given her past surgical history this would not be surprising. To that extent surgery was consulted confirming the obstruction, recommending medical management initially. They do not feel any need for emergent surgery at present, they would like an NG tube inserted, repeat labs, and the patient is requested to follow-up with Dr. Beckham * NGT was inserted last evening by Dr. Gómez for n/v and imaging showed coiled in esophagus and was discontinued * Patient then developed nausea and dry heaving and we reached back out to general surgery for re-evaluation given Dr. Gómez placed first NGT -- appreciate assistance/recommendations * Will continue with supportive treatment for now * Repeat films with persistent bowel obstruction * NPO * LR @ increased to 150cc/hr * Serial imaging/examination * Electrolyte replacement as needed -- will order 2gm mag to keep >2.0 * Discontinued abx given no s/sx infection or plans for surgery at this time * Per surgery, plans for enema through colostomy and if successful may bowel prep and plan for reversal of colostomy vs having to operate on SBO and possible reversal at later day Abdominal pain * Secondary to the above * Controlled at present - would attempt to limit opiates as much as possible as this could likely worsen gastrointestinal motility however we certainly do not want this patient to be in pain. Parasternal hernia * Previously repaired, likely contributing to the above, monitor for now Crohn's ileitis * Likely contributing to above presentation, continue home medications Electrolyte derangements * Patient presents with hypokalemia, repleted potassium as indicated with repeat K 3.9. * Keep mag >2.0 -- 1.8 on AM labs and ordered 2gm IV Hypertension * Continue home amlodipine once able to take PO * Hydralazine prn * BP stable 132/75 GERD * Protonix -- will utilize IVP as patient NPO DVT PPX: * SCD * Ambulation encouraged * Will hold off chemoproph in case of possible need for surgery Admission and Anticipated Discharge Date Admission Date: June 11, 2020 Subjective Patient with continued abdominal pain. She reports pain slightly increased today, and worse since seen this morning by Dr. Beckham. No output from ostomy or gas. Still has not had enema to ostomy but plans if she is able to start moving bowels to prep and possible reversal vs needing surgery with obstruction. No fever, chills. Emesis yesterday but non reported today. Nausea following pain medication but states improved with zofran. Does have some itchiness today and will continue benadryl as needed. No chest pain, shortness of breath, headache or urinary symptoms at this time. Nursing arriving on exiting room to administer enema. Review of Systems Review of Systems: All systems reviewed & are unremarkable except as noted in HPI & below Physical Exam Constitutional: well developed and + obese; no acute distress and + uncomfortable Eyes: + anicteric sclerae and PERRL ENMT: dry mm Neck: normal visual inspection and trachea midline Respiratory: normal respiratory effort, lungs clear to auscultation Auscultation: + diminished lung sounds Cardiovascular: RRR, no murmur, no edema Gastrointestinal (Abdomen): stoma LLQ some erythema/scabbing around no output noted tender to palpation diffusely, however primarily LUQ/LLQ surrounding ostomy absent bowel sounds noted RUQ/RLQ, absent LLQ/LUQ Skin: warm, dry Neurologic: PERRL, EOMI, accommodation nl, no face palsy, no dysarthria Psychiatric: Orientation: alert and oriented x 3 Results & Data Results & Data ([facility]) Vital Signs (Past 12 Hours) Vital Signs Temp Pulse Pulse Resp BP Pulse Ox Pulse Ox 06/12/20 07:18 37 C 81 18 132/75 94 06/12/20 02:45 81 91 06/11/20 23:32 37.3 C 85 14 124/77 93 Laboratory Results 06/12/20 06/12/20 06/11/20 Range/Units 07:05 06:57 06:12 WBC 5.96 (4.8-10.8) K/uL RBC 4.07 L (4.2-5.4) M/uL Hgb 12.1 (12.0-16.0) g/dL Hct 37.3 (37-47) % MCV 91.6 (80-100) fL MCH 29.7 (25-34) pg MCHC 32.4 (32-36) g/dL RDW Std Deviation 42.9 (36.4-46.3) fL RDW Coeff of Kody 12.7 (11.5-14.5) % Plt Count 180 (130-400) K/uL MPV 9.5 (7.4-10.4) fL Immature Gran % (Auto) 0.2 % Neut % (Auto) 53.8 % Lymph % (Auto) 33.7 % [place] % (Auto) 8.6 % Eos % (Auto) 3.4 % Baso % (Auto) 0.3 % Neut # (Auto) 3.21 (1.4-6.5) K/uL Lymph # (Auto) 2.01 (1.2-3.4) K/uL [place] # (Auto) 0.51 (0.11-0.59) K/uL Eos # (Auto) 0.20 (0-0.5) K/uL Baso # (Auto) 0.02 (0-0.2) K/uL Immature Gran # (Auto) 0.01 (0.00-0.02) K/uL Sodium 141 (136-145) mmol/L Potassium 3.7 (3.5-5.1) mmol/L Chloride 108 H (98-107) mmol/L Carbon Dioxide 27 (21-32) mmol/L Anion Gap 6.0 (3-11) BUN 10 D (7-18) mg/dl Creatinine 0.93 (0.6-1.2) mg/dl Est Cr Clr Drug Dosing 53.9 ml/min Est GFR ( Amer) 74.7 Est GFR (Non-Af Amer) 64.5 BUN/Creatinine Ratio 11.1 (10-20) Glucose 95 (70-99) mg/dl Calcium 8.2 L (8.5-10.1) mg/dl Phosphorus 3.0 (2.5-4.9) mg/dl Magnesium 1.8 2.0 (1.8-2.4) mg/dl Total Bilirubin 0.6 (0.2-1) mg/dl AST 23 (15-37) U/L ALT 29 (12-78) U/L Alkaline Phosphatase 79 (45-117) U/L Total Protein 5.8 L (6.4-8.2) gm/dl Albumin 2.6 L (3.4-5.0) gm/dl Globulin 3.2 (2.5-4.0) gm/dl Albumin/Globulin Ratio 0.8 L (0.9-2) Diagnostic Findings Abd/Chest XRAY IMPRESSION: 1. No acute process of the chest. 2. Persistent small bowel obstruction. 3. No pneumoperitoneum identified PG Care Time/CCT Total # of Minutes Spent Total Time Spent with Patient: Total time spent is greater than 50% in coordination of care (as documented) at patient's floor/unit and/or counseling patient: Coding Level of Care Code 96251 Subseq Hosp Care Lvl 2 Diagnoses Small bowel obstruction K56.609
[2020-06-12] MEDS: MAGNESIUM SULFATE / D5W 1 GM/100 ML BAG IV SCH ×2 (10:07→12:09)
[2020-06-12] MEDS: CHOLESTYRAMINE LIGHT 4 GM PKT PO SCH (10:07)
--- NOTE | 2020-06-12 10:08 | XRay Report ---
XR abdomen 2V w PA chest HISTORY: 65 years-old Female f/u SBO acute generalized abdominal pain with small bowel obstruction COMPARISON: Acute abdominal series radiographs 06/11/2020, CT abdomen and pelvis 06/10/2020 TECHNIQUE: PA view of the chest with erect and supine views of the abdomen FINDINGS: Cardiac silhouette is mildly enlarged. Linear subsegmental bibasilar densities suggest atelectasis/sc arring. No pneumothorax, pleural effusion, airspace consolidation or overt pulmonary edema. Hiatal he rnia. Degenerative changes of the shoulders and spine. Cholecystectomy. No urolith. No pneumatosis or pneumoperitoneum. Persistent small bowel obstruction w ith small bowel loops measuring up to 4.2 cm transversely. Left lower quadrant ostomy. Moderate fecal retention of the right hemicolon. Numerous pelvic basin phlebolith. No acute fracture. IMPRESSION: 1. No acute process of the chest. 2. Persistent small bowel obstruction. 3. No pneumoperitoneum identified. ACT 112: Negative or not required by law. The above report was generated using voice recognition software. It may contain grammatical, syntax o r spelling errors. Electronically signed by: Fili South M.D. 06/12/2020 10:07 AM
--- NOTE | 2020-06-12 21:32 | Billing Data ---
Date of Service June 12, 2020 Coding Level of Care Code 29881 Initial Inpt Care Lvl 2
[2020-06-13] MEDS: MoRPHine SULFATE 4 MG/ML 1 ML CARP\\VIAL IV PRN (00:55)
[2020-06-13] MEDS: LACTATED RINGER'S 1,000 ML IV SCH ×3 (02:58→21:16)
[2020-06-13 07:04] LABS: Basophils # (auto) 0.02 K/uL (0-0.2); Basophils % (auto) 0.4 %; Eosinophils # (auto) 0.18 K/uL (0-0.5); Eosinophils % (auto) 3.7 %; Hematocrit (blood only) 36.4 % (37-47); Hemoglobin 12.1 g/dL (12.0-16.0); Immature Granulocytes # (auto) 0.01 K/uL (0.00-0.02); Immature Granulocytes % (auto) 0.2 %; Lymphocytes # (auto) 1.62 K/uL (1.2-3.4); Lymphocytes % (auto) 32.9 %; Mean Corpuscular Hemoglobin 30.3 pg (25-34); Mean Corpuscular Hgb Conc 33.2 g/dL (32-36); Mean Platelet Volume 9.5 fL (7.4-10.4); Monocytes # (auto) 0.56 K/uL (0.11-0.59); Monocytes % (auto) 11.4 %; Neutrophils # (auto) 2.54 K/uL (1.4-6.5); Neutrophils % (auto) 51.4 %; Platelet Count 174 K/uL (130-400); RDW Coefficient of Variation 12.5 % (11.5-14.5); RDW Standard Deviation 41.5 fL (36.4-46.3); White Blood Count 4.93 K/uL (4.8-10.8)
--- NOTE | 2020-06-13 07:13 | Surgery Progress Note ---
Date of Service June 13, 2020 Assessment & Plan (1) Small bowel obstruction: At this point we are compelled to proceed with surgery and release the obstruction pending on the operative findings and her anxiety to have the colostomy reversed at this time we evaluate the situation intra-abdominally and depending what we find if we feel that we can reverse the colostomy even though she is not on bowel prep or may consider doing a protective ileostomy or if this is not feasible and her plan is to release the bowel obstruction and repair the parastomal hernia All questions were answered including risk and complication of the surgery and will proceed accordingly this morning Admission and Anticipated Discharge Date Admission Date: June 11, 2020 Subjective Patient is experience a little bit more abdominal discomfort this morning although not nauseated no emesis Patient had a small fleets enema through the colostomy yesterday had a few specks of stool but since then has nothing out of the colostomy not even air Physical Exam Physical Exam: Is alert no distress having some abdominal pain but the analgesics with sufficient to control it The abdomen is fairly unchanged from yesterday the peristomal area I am not able to find any tenderness the skin condition around the colostomy site is fine Results & Data ([facility]) Vital Signs (Past 12 Hours) Vital Signs Temp Pulse Pulse Resp BP Pulse Ox 06/13/20 00:07 37.3 C 86 14 129/80 92 06/12/20 23:11 82 16 92 PG Care Time/CCT Total # of Minutes Spent Total Time Spent with Patient: Total time spent is greater than 50% in coordination of care (as documented) at patient's floor/unit and/or counseling patient: Coding Level of Care Code 59068 Subseq Hosp Care Lvl 3 Diagnoses Small bowel obstruction K56.609
[2020-06-13 07:35] LABS: Albumin Level 2.4 gm/dl (3.4-5.0); BUN Creatinine Ratio 8.3 (10-20); Calcium 7.3 mg/dl (8.5-10.1); Creatinine Clr Calc Pharmacy 71.6 ml/min; Est GFR (African American) 105.4; Est GFR (Non-African American) 90.9; Magnesium 2.2 mg/dl (1.8-2.4); Potassium 3.3 mmol/L (3.5-5.1)
[2020-06-13 07:37] LABS: Albumin Globulin Ratio 0.8 (0.9-2); Bilirubin,Total 0.5 mg/dl (0.2-1); Globulin 3.2 gm/dl (2.5-4.0); Total Protein 5.6 gm/dl (6.4-8.2)
--- NOTE | 2020-06-13 08:44 | Anesthesiology Consultation ---
Date of Service June 13, 2020 Assessment & Plan Chart Review Chart Review: Acceptable Risk for Surgery and Patient NOT seen in Pre Admission Testing Consults Requested none ASA [id number] Proposed Anesthesia Anesthesia Type: General History Surgery Operation Date: 06/13/20 09:00 Proposed Procedures p Exploratory Laparotomy, Lysis of Adhesions, Possible Peristomal Hernia, Possible Closure of Colostomy, Possible Ileostomy - Alberto Beckham MD Height/Weight Height: 5 ft Weight: 73.3 kg Allergies Allergy/AdvReac Type Severity Reaction Status Date / Time pneumococcal vaccine Allergy Severe Severe Verified 06/11/20 00:24 swell/redness cephalexin Allergy Intermediate Diarrhea Verified 06/11/20 00:24 Medications Home Medications Medication Instructions Recorded Confirmed Last Taken amlodipine 5 mg tablet 5 mg PO QAM tab 03/21/19 06/11/20 12/23/19 cholecalciferol (vitamin D3) 125 5,000 unit PO QAM tab 03/21/19 06/11/20 12/23/19 mcg (5,000 unit) tablet ferrous sulfate 325 mg (65 mg 325 mg PO QAM tab 03/21/19 06/11/20 12/23/19 iron) tablet folic acid 1 mg tablet 1 mg PO QAM #30 tab 03/21/19 06/11/20 12/23/19 multivitamin 1 tab PO QAM 03/21/19 06/11/20 12/23/19 pantoprazole 40 mg tablet,delayed 40 mg PO BID #60 tab 03/21/19 06/11/20 12/23/19 release Calcium 600 + D(3) 1 cap PO BID 12/13/19 06/11/20 12/23/19 cholestyramine (with sugar) 4 g PO QAM 12/13/19 06/11/20 12/23/19 cranberry extract-vitamin C 1 cap PO QAM 12/13/19 06/11/20 12/23/19 valacyclovir [Valtrex] 1,000 mg PO UD PRN 12/13/19 06/11/20 12/23/19 fesoterodine 8 mg tablet,extended 8 mg PO DAILY #90 tab 04/15/20 06/11/20 Unknown release 24 hr nystatin 100,000 unit/gram topical 1 applic TOPICAL BID #60 g 05/14/20 06/11/20 Unknown powder desoximetasone 0.05 % topical cream 1 applic TOPICAL DAILY #60 g 05/24/20 06/11/20 Unknown methylprednisolone 4 mg tablets in See Rx Instructions .ROUTE 05/27/20 06/11/20 Unknown a dose pack .COMPLEX #21 ea mirabegron 50 mg tablet,extended 50 mg PO DAILY #90 tab 05/27/20 06/11/20 Unknown release 24 hr clobetasol 1 applic TOPICAL BID 06/11/20 06/11/20 Unknown hydrocodone-acetaminophen 1 tab PO DAILY PRN 06/11/20 06/11/20 Unknown Active Medications Generic Name Dose Route Start Last Admin Trade Name Freq PRN Reason Stop Dose Admin Amlodipine Besylate 5 mg 06/11/20 09:00 06/12/20 07:40 Amlodipine Besylate 5 Mg Tab PO 07/11/20 08:59 Not Given QAM NANCY Cholestyramine Resin 4 gm 06/11/20 11:00 06/12/20 10:07 Cholestyramine Light 4 Gm Pkt PO 07/11/20 10:59 Not Given DAILY@1100 NANCY Diphenhydramine HCl 25 mg 06/11/20 18:37 06/11/20 23:56 Diphenhydramine 50 Mg/Ml Vial IV 07/11/20 18:36 25 mg Q12 PRN Administration itching Ferrous Sulfate 325 mg 06/11/20 09:00 06/12/20 07:40 Ferrous Sulfate 325 Mg Tab PO 07/11/20 08:59 Not Given QAM NANCY Folic Acid 1 mg 06/11/20 09:00 06/12/20 07:40 Folic Acid 1 Mg Tab PO 07/11/20 08:59 Not Given QAM NANCY Lactated Ringer's 1,000 mls @ 150 mls/hr 06/11/20 03:10 06/13/20 02:58 Lr IV 07/11/20 03:09 150 mls/hr .Q6H40M NANCY Administration Promethazine HCl 12.5 mg/ 50.5 mls @ 202 mls/hr 06/11/20 05:33 06/11/20 06:14 Sodium Chloride IV 07/11/20 05:32 Infused Q6H PRN Infusion Nausea And Vomiting Pantoprazole Sodium 40 mg/ 10 mls @ 5 mls/min 06/11/20 09:00 06/12/20 19:57 Syringe IV 07/11/20 08:59 5 mls/min BID NANCY Administration Mirabegron 50 mg 06/11/20 09:00 06/12/20 07:40 Mirabegron Er 25 Mg Tab PO 07/11/20 08:59 Not Given DAILY NANCY Miscellaneous 1 ea 06/11/20 08:00 06/13/20 08:06 Clobetasol 0.05 % Scalp Solution: Order Awaiting Action N/A 07/11/20 07:59 Not Given QS NANCY Miscellaneous 1 ea 06/11/20 08:00 06/13/20 08:06 Desoximetasone [Topicort]: Order Awaiting Action N/A 07/11/20 07:59 Not Given QS NANCY Miscellaneous 1 ea 06/11/20 08:00 06/13/20 08:06 Fesoterodine [Toviaz]: Order Awaiting Action N/A 07/11/20 07:59 Not Given QS NANCY Morphine Sulfate 2 mg 06/11/20 01:41 06/11/20 09:32 Morphine Sulfate 2 Mg/Ml Carp IV 06/25/20 01:40 2 mg Q3H PRN Administration Pain (1,2,3,4,5) & Pre PT Morphine Sulfate 4 mg 06/11/20 01:41 06/13/20 00:55 Morphine Sulfate 4 Mg/Ml 1 Ml Carp\Vial IV 06/25/20 01:40 4 mg Q3H PRN Administration Pain (6,7,8,9,10) Multivitamins 1 tab 06/11/20 09:00 06/12/20 07:40 Multivitamin Tab PO 07/11/20 08:59 Not Given QAM [facility] Multivitamins/Minerals 1 tab 06/11/20 09:00 06/12/20 19:53 Calcium 600mg + Vit D 400 Iu Tab PO 07/11/20 08:59 Not Given BID NANCY Nystatin 1 appln 06/11/20 09:00 06/12/20 19:54 Nystatin Powder 15gm Btl EXT 07/11/20 08:59 Not Given BID NANCY Ondansetron HCl 4 mg 06/11/20 01:36 06/12/20 19:58 Ondansetron Inj 2 Mg/Ml 2 Ml Vial IV 07/11/20 01:35 4 mg Q6H PRN Administration Nausea Pantoprazole Sodium 40 mg 06/11/20 09:00 06/11/20 08:22 Pantoprazole 40 Mg Tab PO 07/11/20 08:59 Not Given BID NANCY Vitamin D 5,000 units 06/11/20 09:00 06/12/20 07:41 Cholecalciferol 1,000 Units 25 Mcg Tab PO 07/11/20 08:59 Not Given QAM NANCY Past Medical History Medical History Crohns disease Degenerative disc disease History of anesthesia reaction difficulty waking History of kidney stones Hypertension Osteoarthritis Sleep apnea has testing done 12/12/2019--awaiting results Exercise / Class Metabolic Activity III < 4 Walking/Shop/Light housework Past Family History Family History Sister Family history of diabetes mellitus Other No family history of adverse response to anesthesia Past Surgical History Surgical History History of bilateral cataract extraction History of bilateral tubal ligation History of cholecystectomy History of colon resection (01/29/20) Exploratory Laparotomy; open Resection of Sigmoid Colon; creation of colostomy Dr. Beckham 01/29/20 History of colonoscopy with polypectomy History of cystoscopy History of nasal cauterization History of Staci fundoplication with hernia repair History of total vaginal hysterectomy Status post trigger finger release right hand Past Anesthesia History No Hx of Anesthesia Complications and No Family Hx of Anesthesia Complications History of PONV No Hx of PONV and No Hx of Motion Sickness Social History Smoking Status: Never smoker Hx Alcohol Use: No Hx Substance Use: No substance use type: does not use Physical Exam Vital Signs Last Vital Signs Temp 36.7 C 06/13/20 07:37 Pulse 84 06/13/20 07:37 Resp 17 06/13/20 07:37 BP 147/79 H 06/13/20 07:37 Pulse Ox 90 06/13/20 07:37 Testing Laboratory Results 06/13/20 06:32 06/13/20 06:32 PT 10.4 Seconds (9.0-12.0) 06/10/20 21:23 INR 1.0 (0.9-1.1) 06/10/20 21:23 APTT 33.3 Seconds (21.0-31.0) H 06/10/20 21:23 Electrocardiogram Date: 06/10/20 Findings: + NSR @ (at 79) and + LVH Chest X-Ray Date: 06/11/20 Findings: + NAD and + other (NG tube is looped within distal esophagus/hiatal hernia w/tip xtending to mid esophagus)
[2020-06-13] MEDS: CHOLECALCIFEROL 1,000 UNITS 25 MCG TAB PO SCH (09:27)
[2020-06-13] MEDS: FOLIC ACID 1 MG TAB PO SCH (09:27)
[2020-06-13] MEDS: MULTIVITAMIN TAB PO SCH (09:27)
[2020-06-13] MEDS: MIRABEGRON ER 25 MG TAB PO SCH (09:27)
[2020-06-13] MEDS: NYSTATIN POWDER 15GM BTL EXT SCH ×2 (09:27→22:19)
[2020-06-13] MEDS: CALCIUM 600MG + VIT D 400 IU TAB PO SCH (09:27)
[2020-06-13] MEDS: FERROUS SULFATE 325 MG TAB PO SCH (09:27)
[2020-06-13] MEDS: amLODIPine BESYLATE 5 MG TAB PO SCH (09:27)
[2020-06-13] MEDS ORDERED: cefOXitin 2,000 MG in DEXTROSE 5% 50 ML IV ONE (10:15)
--- NOTE | 2020-06-13 11:28 | Hospitalist Progress Note ---
Date of Service June 13, 2020 Assessment & Plan (1) Small bowel obstruction: Patient is a 65-year-old female with a past medical history of Crohn's disease, degenerative disc disease, history of anesthesia reaction, difficulty waking, history of kidney stones, hypertension, osteoarthritis, sleep apnea,, History of cholecystectomy, recent history January 29, 2020 of an ex lap with open resection of the sigmoid colon and creation of a colostomy by Dr. Beckham, history of Niessen fundoplication with hernia repair who presents with approximately 12-hour history of significant abdominal pain diagnosed with a small bowel obstruction by imaging. Surgery was consulted and recommended medi leandra management with close observation initially. * Surgery Consulted * Attempted enema via ostomy 06/12 with minimal output * Persistent SBO with increased abdominal pain and surgery planned for surgery this morning s/p Exploratory Laparotomy, Lysis of Adhesions, Peristomal Hernia Repair, Closure of Colostomy, Protective Ileostomy, Gastrostomy tube placement(Not Applicable) - Alberto Beckahm. EBL 250cc. Pre-op h/h * --> see operative report for extensive anastomosis with placement of gastrostomy tube and MARILYN LLQ x 2 * Plans for possible gastrostomy tube removal in approximately 10 days or so if able, per patient with discussion with Dr. Beckham * Post-operative orders per Dr. Beckham * Pain control -- ordered SANDWICH COUNTER ATTENDANT to begin post-op * LR @150cc/hr * Electrolyte replacement as needed * --> K3.3 this morning and ordered 4gm IV * Will repeat in AM and order additional replacement as needed * Cefoxitin IV perioperatively * Follow pathology Abdominal pain * Secondary to the above * Tylenol IV * SANDWICH COUNTER ATTENDANT pump ordered to begin post-operatively Parasternal hernia * Previously repaired, likely contributing to the above * Repair as above -- see operative note Crohn's ileitis * Likely contributing to above presentation, continue home medications Electrolyte derangements * Patient presents with hypokalemia, repleted potassium as indicated with repeat K 3.9 but was again low this morning and additional 4K riders ordered for K 3.3 * Repeat K in AM. Mag wnl Hypertension * Hold amlodipine as patient NPO * Hydralazine prn * BP stable 136/79 GERD * Protonix -- will utilize IVP as patient NPO DVT Prophylaxis: * SCD * Ambulation encouraged * Will hold off chemoproph in setting of surgery for this morning --> Heparin SQ post-operatively Dispo: continued inpatient stay Admission and Anticipated Discharge Date Admission Date: June 11, 2020 Subjective Attempted to see patient this morning but she was taken to OR shortly after 9. Seen post-operatively. Patient laying in bed, with significant abdominal pain, left sided. Rates it 9/10 and approaching a 10/10. No nausea or vomiting. States her mouth is extremely dry and assisted with moist swab to wet her mouth. Discussed placement of gastrotomy tube as NGT unable to be placed given complicated surgical history (she states she was told possible plans for removal in next 10 days or so). Also with 2 other drains, minimal bloody drainage. Pain with any movement. Discussed nursing to get her set up with SANDWICH COUNTER ATTENDANT here shortly to adequately control her pain. No fever, chills, chest pain, shortness of breath reported. Review of Systems Review of Systems: All systems reviewed & are unremarkable except as noted in HPI & below Physical Exam Constitutional: well developed and + obese; no acute distress and + uncomfortable Eyes: + anicteric sclerae and PERRL ENMT: dry mm Neck: normal visual inspection and trachea midline Respiratory: normal respiratory effort, lungs clear to auscultation Auscultation: + diminished lung sounds 98% on 2L NC Cardiovascular: RRR, no murmur, no edema Gastrointestinal (Abdomen): surgical dressing with binder to abdomen no overt drainage noted to dressing although did have some stool smeared across abdomen to lower left side, unclear if from rectal due to inability to move patient secondary to pain with movement at this time 2 MARILYN drains LLQ with scant serosanguineous drainage, 20/30cc noted Gastrostomy tube with stool noted Musculoskeletal: no cyanosis or clubbing, extremities motor strength 5/5 Skin: dry, decreased turgor Neurologic: PERRL, EOMI, accommodation nl, no face palsy, no dysarthria Psychiatric: Orientation: alert and oriented x 3 Results & Data Results & Data ([facility]) Vital Signs (Past 12 Hours) Vital Signs Temp Pulse Resp BP Pulse Ox 06/13/20 08:45 36.9 C 83 18 147/80 H 92 06/13/20 07:37 36.7 C 84 17 147/79 H 90 06/13/20 00:07 37.3 C 86 14 129/80 92 Laboratory Results 06/13/20 06/13/20 Range/Units 06:32 06:32 WBC 4.93 (4.8-10.8) K/uL RBC 4.00 L (4.2-5.4) M/uL Hgb 12.1 (12.0-16.0) g/dL Hct 36.4 L (37-47) % MCV 91.0 (80-100) fL MCH 30.3 (25-34) pg MCHC 33.2 (32-36) g/dL RDW Std Deviation 41.5 (36.4-46.3) fL RDW Coeff of Kody 12.5 (11.5-14.5) % Plt Count 174 (130-400) K/uL MPV 9.5 (7.4-10.4) fL Immature Gran % (Auto) 0.2 % Neut % (Auto) 51.4 % Lymph % (Auto) 32.9 % [place] % (Auto) 11.4 % Eos % (Auto) 3.7 % Baso % (Auto) 0.4 % Neut # (Auto) 2.54 (1.4-6.5) K/uL Lymph # (Auto) 1.62 (1.2-3.4) K/uL [place] # (Auto) 0.56 (0.11-0.59) K/uL Eos # (Auto) 0.18 (0-0.5) K/uL Baso # (Auto) 0.02 (0-0.2) K/uL Immature Gran # (Auto) 0.01 (0.00-0.02) K/uL Sodium 142 (136-145) mmol/L Potassium 3.3 L (3.5-5.1) mmol/L Chloride 108 H (98-107) mmol/L Carbon Dioxide 30 (21-32) mmol/L Anion Gap 4.0 (3-11) BUN 6 L (7-18) mg/dl Creatinine 0.70 (0.6-1.2) mg/dl Est Cr Clr Drug Dosing 71.6 ml/min Est GFR ( Amer) 105.4 Est GFR (Non-Af Amer) 90.9 BUN/Creatinine Ratio 8.3 L (10-20) Glucose 82 (70-99) mg/dl Calcium 7.3 L (8.5-10.1) mg/dl Magnesium 2.2 (1.8-2.4) mg/dl Total Bilirubin 0.5 (0.2-1) mg/dl AST 14 L (15-37) U/L ALT 21 (12-78) U/L Alkaline Phosphatase 70 (45-117) U/L Total Protein 5.6 L (6.4-8.2) gm/dl Albumin 2.4 L (3.4-5.0) gm/dl Globulin 3.2 (2.5-4.0) gm/dl Albumin/Globulin Ratio 0.8 L (0.9-2) PG Care Time/CCT Total # of Minutes Spent Total Time Spent with Patient: Total time spent is greater than 50% in coordination of care (as documented) at patient's floor/unit and/or counseling patient: Coding Level of Care Code 41838 Subseq Hosp Care Lvl 2 Diagnoses Small bowel obstruction K56.609
[2020-06-13] MEDS ORDERED: NALOXONE HCL 0.4 MG/1 ML VIAL/CARP IV PRN ×2 (12:35→14:47)
[2020-06-13] MEDS ORDERED: ONDANSETRON INJ 2 MG/ML 2 ML VIAL IV PRN (12:35)
[2020-06-13] MEDS ORDERED: ePHEDrine sulfate 50 MG/ML AMP IV PRN (12:35)
[2020-06-13] MEDS ORDERED: FLUMAZENIL 0.1 MG/1 ML 10 ML VIAL IV PRN (12:35)
[2020-06-13] MEDS ORDERED: HYDROmorphone INJ 1 MG/ML SYRINGE IV PRN (12:35)
[2020-06-13] MEDS ORDERED: LABETALOL HCL IV 5 MG/ML 20ML IV PRN (12:35)
[2020-06-13] MEDS ORDERED: PROMETHAZINE HCL 12.5 MG in SODIUM CHLORIDE 0.9% 50 ML IV PRN (12:35)
[2020-06-13] MEDS ORDERED: fentaNYL citrate 100 MCG/2 ML VIAL IV PRN (12:35)
[2020-06-13] MEDS ORDERED: ATROPINE SULFATE 0.1 MG/ML 10ML SYR IV PRN (12:35)
--- NOTE | 2020-06-13 12:40 | Post Operative Brief Note ---
PG Immediate Post Op with CF Date of Surgery June 13, 2020 Pre & Post Diagnosis Operation Date: 06/13/20 09:00 Pre-Op Diagnosis: Small Bowel Obstruction Post-Op Diagnosis: Small Bowel Obstruction I identified the patient and participated in the time-out.: Yes Procedure Operation Date: 06/13/20 09:00 Actual Procedures p Exploratory Laparotomy, Lysis of Adhesions, Peristomal Hernia Repair, Closure of Colostomy, Protective Ileostomy, Gastrostomy tube placement(Not Applicable) - Alberto Beckham MD Surgeon Alberto Beckham MD [employer] b keke tovar Estimated Blood Loss 250 Findings Consistent with Post-Op Diagnosis Specimens Specimen Description: Permanent specimen: A. Colostomy B. Hernia sac C. Portion of sigmoid colon Drains Pedraza Catheter (16 fr pedraza catheter inserted by TERE Macdonald without difficulty, clear yellow urine for return), Umesh-Sharma Drain (15 and 19 fr drains), Ramo Drain and Other (18 fr pedraza used as a gastrostomy tube)
[2020-06-13] MEDS ORDERED: SUGAMMADEX SODIUM 200 MG/2 ML VIAL IV ONE (12:49)
[2020-06-13] MEDS: PANTOprazole 40 MG in SYRINGE 0 ML IV SCH ×2 (13:00→22:20)
[2020-06-13] MEDS: CHOLESTYRAMINE LIGHT 4 GM PKT PO SCH (13:00)
--- NOTE | 2020-06-13 13:01 | Operative Report ---
PG Post Operative Report Pre & Post Diagnosis Operation Date: 06/13/20 09:00 Pre-Op Diagnosis: Small Bowel Obstruction Post-Op Diagnosis: Small Bowel Obstruction I identified the patient and participated in the time-out.: Yes Procedure Operation Date: 06/13/20 09:00 Actual Procedures p Exploratory Laparotomy, Lysis of Adhesions, Peristomal Hernia Repair, Closure of Colostomy, Protective Ileostomy, Gastrostomy tube placement(Not Applicable) - Alberto Beckham MD The patient was brought into the operating theater general endotracheal anesthes ia timeout was had patient was identified systemic antibiotics given Kamara catheter inserted made a small incision through the lower midline and previous incision went to through subcutaneous tissue moderate amount of subcutaneous edema was appreciated fatty and this persistent density when we entered the abdomen once we entered the abdomen fortunately after the patient was was easily we able to dissect things out from fine adhesions were appreciated the omentum was stuck to the anterior abdominal wall which we were able to free up we used the sharp dissection and blunt dissection we enlarged the incision cephalad and distally to get better exposure and then we were able to run from the ligament of Treitz reduce the parastomal hernia with no adhesions were identified except the future which were taken down sharply and followed it down ultimately the ileocecal valve. The cecum was down in the pelvis and it had some liquid stool but there were no obstructions noted distal to that once we had complete around the small bowel we were left with the colostomy and the hernia that patient had we were able to first of all dissect out by first making elliptical incision around the ostomy itself going through subcutaneous tissue and created up to a point that we were inside the hernial sac freed the colostomy in the colon from the hernial sac by first using a RAHEL stapler and and taken a bit off the opening of the ostomy itself and then completely remove the hernial sac from the subcutaneous tissue the colon was then placed in the abdomen it was free-flowing and there was no problem as far as doing a primary anastomosis as far as any tension we then followed the previous sutures that were placed to identify the distal closure from a Litzy procedure there was some some adhesion maybe the bladder to that area we freed this up and I oversewed the those adhesions on the bladder running 3-0 chromic suture. The sigmoid colon down to the rectal area was mobilized we placed a right angle intestinal clamp and divided then freshened up the area. The proximal colon was then freshened up with another appointment of RAHEL abrams the staple line were oversewn with 3-0 interrupted silk side then anastomosis between the proximal descending colon sigmoid and distal sigmoid rectum oversewn anastomosis side than using 3-0 silk outer layer 3-0 chromic inner layer anastomosis was checked for patency and appear satisfactory. At this point we tried to position an NG tube in the stomach and the patient had a very hard time to do it when she first came in she had had a previous Staci fundoplication therefore attempted even with anesthesia the try to place this and it seemed to be curled up into the recurrent hiatal hernia that she has open post diaphragmatic therefore I elected at this point to place a gastrostomy tube in the event that she will needed decompression we did a by placing it 18 5 cc Kamara through a stab wound to the left upper quadrant position it into the stomach along the greater curvature by pursestring of 2-0 silk 3-0 silk x2 Kamara catheter was inserted then the stomach was attached to the anterior abdominal wall with 3-0 silk sutures. The Kamara catheter was pulled up with a 5 cc balloon and sutured to the skin edge with 2-0 silk suture. The abdomen was then checked from stasis and appears satisfactory I elected for small to drain the pelvic area using 15 Pastor drain in left lower quadrant position in that area then to protect the anastomosis since we had an no bowel prep approximately 8 8 inches from the ileocecal valve there were able to make a small opening into the ileum passing suture of 2-0 silk to control this area then the right lower quadrant approximately quarter inch size of the skin the subcutaneous tissue and right about McBurney's point was made down the subcutaneous tissue onto the rectus muscle by dividing the anterior rectus with a cruciate type of incision and this into the abdomen to accommodate 2 fingers to 3 fingers without any difficulty this terminal ileum was brought out with a Christina and marked with the medially with a 3-0 silk suture to make sure that we avoid any rotation by suturing a this serous portion to the opening of the os of the abdominal wall the abdomen was then closed with retention suture #5 Mersilene that would be tied over a bolster #1 PDS continuou was present throughout the procedure s fashion to close the fascia 5/8 of an inch Ramo was placed in the subcu marilou for skin edges the tension suture requirements over a bolster. The hernial site and colostomy site in the left lower quadrant was first by after removing the hernial sac we had closed the 2 fashion of #0 PDS 1 for the posterior rectus and lateral to the external Bleich in a linear aspect in order to sides and also placed another layer of 0 PDS to the anterior rectus to the similar muscle subcutaneous tissue was brought together once we had placed the 19 Pastor drain into the cavity with interrupted 2-0 Vicryl the edges left open at this point in the ileostomy that we had taken out we created a small opening enough to accommodate a plastic bridge that would be sutured in at 4 points with 2-0 silk suture we make a Bleich cut into the anterior surface of the ileum and the proximal aspect to the distal aspect then inverted that to create a rows with 3 oh's interrupted 3-0 chromic suture it was positioned in place I placed the surgeon's finger inside the proximal opening without difficulty when in the bed abdomen and an ostomy bag was applied the procedure was tolerated well by the patient estimated blood loss approximately 250 cc the patient was taken recovery in good condition addendum Chidi tovar was present throughout the procedure and helped the retraction exposure wound closure addendum I spoke with her Spike by phone after the surgery Surgeon Alberto Beckham MD Traffic Recorder efra tovar Estimated Blood Loss 250 Findings Consistent with Post-Op Diagnosis Specimens part of descending colon hernia sac Description of Procedure merda I attest to the content of the Intraoperative Record and any orders documented therein. Any exceptions are noted below.
--- NOTE | 2020-06-13 14:25 | Anesthesiology Progress Note ---
Date of Service June 13, 2020 Anesthesia Post Procedure Vital Signs Vital Signs: Temp Pulse Pulse Pulse Resp BP BP 06/13/20 14:10 85 11 L 151/76 H 06/13/20 14:00 82 10 L 138/70 06/13/20 13:50 86 12 151/73 H 06/13/20 13:40 90 23 136/70 06/13/20 13:30 87 10 L 127/76 06/13/20 13:21 36.8 C 93 H 20 149/93 H 06/13/20 08:45 36.9 C 83 18 147/80 H 06/13/20 07:37 36.7 C 84 17 147/79 H 06/13/20 00:07 37.3 C 86 14 129/80 06/12/20 23:11 82 16 06/12/20 15:51 37.0 C 84 18 115/57 L Pulse Ox 06/13/20 14:10 95 06/13/20 14:00 96 06/13/20 13:50 94 06/13/20 13:40 94 06/13/20 13:30 95 06/13/20 13:21 99 06/13/20 08:45 92 06/13/20 07:37 90 06/13/20 00:07 92 06/12/20 23:11 92 06/12/20 15:51 92 Pain Intensity Abdomen: Pain Intensity: 7 Transfer of Care Handoff Completed per policy Notes Mental Status: alert / awake / arousable Patient Amnestic to Procedure: Yes Nausea / Vomiting: adequately controlled Pain: adequately controlled Airway Patency, RR, SpO2: stable & adequate BP & HR: stable & adequate Hydration State: stable & adequate Anesthetic Complications: no major complications apparent
[2020-06-13] MEDS: POTASSIUM CHLORIDE / WTR 10 MEQ/100 ML PLCT IV SCH ×4 (14:48→21:17)
[2020-06-13] MEDS: TOLTERODINE TARTRATE LA 4 MG CAPCR PO SCH (15:49)
[2020-06-13] MEDS: ACETAMINOPHEN 1,000 MG/100 ML VIAL IV SCH ×2 (17:41→23:00)
[2020-06-13] MEDS: cefOXitin 2,000 MG in DEXTROSE 5% 50 ML IV SCH ×2 (17:41→23:00)
[2020-06-13] MEDS: SODIUM CHLORIDE 0.9% 1000ML 1,000 ML IV SCH (17:42)
[2020-06-13] MEDS: MoRPHine SULFATE PCA 30 MG/30 ML IV PRN (17:55)
[2020-06-13] MEDS: HEPARIN SOD 5,000 UNIT/0.5 ML VIAL SQ SCH (22:20)
[2020-06-14] MEDS: cefOXitin 2,000 MG in DEXTROSE 5% 50 ML IV SCH ×2 (03:48→11:01)
[2020-06-14] MEDS: MoRPHine SULFATE PCA 30 MG/30 ML IV PRN (05:18)
[2020-06-14] MEDS: ACETAMINOPHEN 1,000 MG/100 ML VIAL IV SCH ×3 (05:34→21:12)
[2020-06-14] MEDS: PANTOprazole 40 MG in SYRINGE 0 ML IV SCH ×2 (06:13→20:36)
[2020-06-14 06:36] LABS: Basophils # (auto) 0.02 K/uL (0-0.2); Basophils % (auto) 0.3 %; Eosinophils # (auto) 0.03 K/uL (0-0.5); Eosinophils % (auto) 0.4 %; Hematocrit (blood only) 33.9 % (37-47); Hemoglobin 11.4 g/dL (12.0-16.0); Immature Granulocytes # (auto) 0.01 K/uL (0.00-0.02); Immature Granulocytes % (auto) 0.1 %; Lymphocytes # (auto) 1.06 K/uL (1.2-3.4); Lymphocytes % (auto) 13.7 %; Mean Corpuscular Hemoglobin 30.4 pg (25-34); Mean Corpuscular Hgb Conc 33.6 g/dL (32-36); Mean Corpuscular Volume 90.4 fL (80-100); Mean Platelet Volume 9.6 fL (7.4-10.4); Monocytes # (auto) 0.77 K/uL (0.11-0.59); Monocytes % (auto) 9.9 %; Neutrophils # (auto) 5.86 K/uL (1.4-6.5); Neutrophils % (auto) 75.6 %; Platelet Count 178 K/uL (130-400); RDW Coefficient of Variation 12.6 % (11.5-14.5); RDW Standard Deviation 41.4 fL (36.4-46.3); Red Blood Count 3.75 M/uL (4.2-5.4); White Blood Count 7.75 K/uL (4.8-10.8)
[2020-06-14 06:58] LABS: BUN Creatinine Ratio 8.6 (10-20); Calcium 7.5 mg/dl (8.5-10.1); Creatinine Clr Calc Pharmacy 52.8 ml/min; Est GFR (African American) 72.8; Est GFR (Non-African American) 62.9; Magnesium 1.9 mg/dl (1.8-2.4); Potassium 4.3 mmol/L (3.5-5.1)
[2020-06-14] MEDS: LACTATED RINGER'S 1,000 ML IV SCH ×2 (07:54→18:58)
--- NOTE | 2020-06-14 08:23 | Surgery Progress Note ---
Date of Service June 14, 2020 Assessment & Plan (1) Small bowel obstruction: Operative findings were discussed with the patient including the operative procedure and all questions were answered We will start her on clear liquids clamp the G-tube rehooked to drainage of patient is nauseated and feels uncomfortable All questions were answered including the anticipated hospital stay at this time and the timeframe where the ileostomy will be closed but she is aware prior to that we will need to get a contrast study through the rectum to make sure the anastomosis is healed well Dr. Milligan will be covering the weekend and this was discussed with the patient Admission and Anticipated Discharge Date Admission Date: June 11, 2020 Subjective Patient is resting comfortably feeling much better than she did prior to surgery no real complaints except the expected abdominal discomfort she is not nauseated Physical Exam Physical Exam: She is alert coherent resting comfortable in no distress The G-tube has minimal drainage The abdomen is softly distended with the expected postoperative discomfort The ileostomy tube has some bilious output and required about 150 overnight Results & Data ([facility]) Vital Signs (Past 12 Hours) Vital Signs Temp Pulse Resp BP Pulse Ox 06/14/20 07:08 36.6 C 85 16 136/80 98 06/14/20 03:43 36.7 C 85 18 138/77 97 06/13/20 22:55 36.8 C 87 20 131/76 97 06/13/20 22:28 89 16 135/80 96 06/13/20 21:12 37 C 92 H 16 144/87 H 95 06/13/20 20:36 89 18 133/81 95 Lab noted PG Care Time/CCT Total # of Minutes Spent Total Time Spent with Patient: Total time spent is greater than 50% in coordination of care (as documented) at patient's floor/unit and/or counseling patient: Coding Level of Care Code None Diagnoses Small bowel obstruction K56.609
--- NOTE | 2020-06-14 08:25 | Hospitalist Progress Note ---
Date of Service June 14, 2020 Assessment & Plan (1) Small bowel obstruction: Patient is a 65-year-old female with a past medical history of Crohn's disease, degenerative disc disease, history of anesthesia reaction, difficulty waking, history of kidney stones, hypertension, osteoarthritis, sleep apnea,, History of cholecystectomy, recent history January 29, 2020 of an ex lap with open resection of the sigmoid colon and creation of a colostomy by Dr. Beckham, history of Niessen fundoplication with hernia repair who presents with approximately 12-hour history of significant abdominal pain diagnosed with a small bowel obstruction by imaging. Surgery was consulted and recommended medi leandra management with close observation initially. * Surgery Consulted * Attempted enema via ostomy 06/12 with minimal output * Persistent SBO with increased abdominal pain and surgery planned for surgery this morning POD #2 s/p Exploratory Laparotomy, Lysis of Adhesions, Peristomal Hernia Repair, Closure of Colostomy, Protective Ileostomy, Gastrostomy tube placement(Not Applicable) - Alberto Beckham. EBL 250cc. Pre-op h/h * --> see operative report for extensive anastomosis with placement of gastrostomy tube and MARILYN LLQ x 2 * Plans for possible gastrostomy tube removal in approximately 10 days or so if able, per patient with discussion with Dr. Beckham * Post-operative orders per Dr. Beckham * POT RELINER for pain control * Cefoxitin 2gm Q6H post-operatively * LR @ 100cc/hr * Tylenol 1000mg IV Q8H * Protonix 40mg IV BID for now -- can transition to PO once continues to have PO intake without n/v * Hgb/hct 11.4/33.9 -- acute blood loss anemia although patient with chronically low hemoglobin and closer to baseline and continues to be on IVF * Afebrile, WBC 7.7k * Serial monitoring of blood counts, electrolytes and replace as needed Abdominal pain * Secondary to the above * Tylenol IV * POT RELINER pump post-operatively * See above Parasternal hernia * Previously repaired, likely contributing to the above * Repair as above -- see operative note Crohn's ileitis * Likely contributing to above presentation, continue home medications Electrolyte derangements * Patient presents with hypokalemia, repleted potassium as indicated with repeat K 3.9 but was again low morning 06/13 additional 4K riders ordered for K 3.3 * Repeat K in AM 4.3. Mag wnl * Continue to monitor Hypertension * Amlodipine 5mg PO daily * BP stable 136/80 * Hydralazine prn * Continue to monitor GERD * Protonix -- will utilize IVP as patient had been NPO and patient just now ate breakfast --> switch back to PO BID in AM if able to tolerate Overactive Bladder * Continue fesoterodine 8mg, mirabegron 50mg daily DVT Prophylaxis: * SCD * Ambulation encouraged * Will hold off chemoproph in setting of surgery for this morning --> Heparin SQ post-operatively Dispo: continued inpatient stay Admission and Anticipated Discharge Date Admission Date: June 11, 2020 Subjective Patient evaluated this morning. Patient with reported much better control of her pain with POT RELINER. She did state she did not have to utilize much, but was told by surgery that it will help with her healing. Did tolerate breakfast. No nausea or vomiting with breakfast and tolerated well. Hopeful for reversal in upcoming weeks to begin 2020 without the tube. No fever, chills, chest pain, shortness of breath, dysuria headache or other issues at this time. Has been up minimally since operation but is requesting to sleep at this time. CPAP uncomfortable last night and she would prefer to use O2 via NC for the time being. Review of Systems Review of Systems: All systems reviewed & are unremarkable except as noted in HPI & below Physical Exam Constitutional: well developed, + obese and comfortable; no acute distress Eyes: + anicteric sclerae and PERRL ENMT: Ears: no hearing impairment Nose: no external nose abnormality Neck: normal visual inspection and trachea midline Respiratory: normal respiratory effort, lungs clear to auscultation Auscultation: + diminished lung sounds Cardiovascular: RRR, no murmur, no edema Gastrointestinal (Abdomen): Inspection/Auscultation: + abdomen distended and + hypoactive bowel sounds Percussion/Palpation: + abdomen tender ileostomy tube with bilious output MARILYN drains x 2 with serosanguineous drainage, <20cc noted in each Gastrostomy tube clamped at this time Abdominal dressing with some shaddowing noted tender to palpation diffusely, although slightly improved from last evening Musculoskeletal: no cyanosis or clubbing, extremities motor strength 5/5 Skin: cool, dry Neurologic: PERRL, EOMI, accommodation nl, no face palsy, no dysarthria Psychiatric: Orientation: alert and oriented x 3 Genitourinary: pedraza draining yellow urine Lymphatic: no cervical or axillary lymphadenopathy Results & Data Results & Data ([facility]) Vital Signs (Past 12 Hours) Vital Signs Temp Pulse Resp BP Pulse Ox 06/14/20 07:08 36.6 C 85 16 136/80 98 06/14/20 03:43 36.7 C 85 18 138/77 97 06/13/20 22:55 36.8 C 87 20 131/76 97 06/13/20 22:28 89 16 135/80 96 06/13/20 21:12 37 C 92 H 16 144/87 H 95 06/13/20 20:36 89 18 133/81 95 Laboratory Results 06/14/20 06/14/20 Range/Units 06:20 06:20 WBC 7.75 (4.8-10.8) K/uL RBC 3.75 L (4.2-5.4) M/uL Hgb 11.4 L (12.0-16.0) g/dL Hct 33.9 L (37-47) % MCV 90.4 (80-100) fL MCH 30.4 (25-34) pg MCHC 33.6 (32-36) g/dL RDW Std Deviation 41.4 (36.4-46.3) fL RDW Coeff of Kody 12.6 (11.5-14.5) % Plt Count 178 (130-400) K/uL MPV 9.6 (7.4-10.4) fL Immature Gran % (Auto) 0.1 % Neut % (Auto) 75.6 % Lymph % (Auto) 13.7 % Graham % (Auto) 9.9 % Eos % (Auto) 0.4 % Baso % (Auto) 0.3 % Neut # (Auto) 5.86 (1.4-6.5) K/uL Lymph # (Auto) 1.06 L (1.2-3.4) K/uL Graham # (Auto) 0.77 H (0.11-0.59) K/uL Eos # (Auto) 0.03 (0-0.5) K/uL Baso # (Auto) 0.02 (0-0.2) K/uL Immature Gran # (Auto) 0.01 (0.00-0.02) K/uL Sodium 138 (136-145) mmol/L Potassium 4.3 D (3.5-5.1) mmol/L Chloride 107 (98-107) mmol/L Carbon Dioxide 28 (21-32) mmol/L Anion Gap 3.0 (3-11) BUN 8 (7-18) mg/dl Creatinine 0.95 (0.6-1.2) mg/dl Est Cr Clr Drug Dosing 52.8 ml/min Est GFR ( Amer) 72.8 Est GFR (Non-Af Amer) 62.9 BUN/Creatinine Ratio 8.6 L (10-20) Glucose 123 H (70-99) mg/dl Calcium 7.5 L (8.5-10.1) mg/dl Magnesium 1.9 (1.8-2.4) mg/dl Diagnostic Findings PG Post Operative Report Pre & Post Diagnosis Operation Date: 06/13/20 09:00 Pre-Op Diagnosis: Small Bowel Obstruction Post-Op Diagnosis: Small Bowel Obstruction I identified the patient and participated in the time-out.: Yes Procedure Operation Date: 06/13/20 09:00 Actual Procedures p Exploratory Laparotomy, Lysis of Adhesions, Peristomal Hernia Repair, Closure of Colostomy, Protective Ileostomy, Gastrostomy tube placement(Not Applicable) - Alberto Beckham MD The patient was brought into the operating theater general endotracheal anesthesia timeout was had patient was identified systemic antibiotics given Fo yahir catheter inserted made a small incision through the lower midline and previous incision went to through subcutaneous tissue moderate amount of subcutaneous edema was appreciated fatty and this persistent density when we entered the abdomen once we entered the abdomen fortunately after the patient was was easily we able to dissect things out from fine adhesions were appreciated the omentum was stuck to the anterior abdominal wall which we were able to free up we used the sharp dissection and blunt dissection we enlarged the incision cephalad and distally to get better exposure and then we were able to run from the ligament of Treitz reduce the parastomal hernia with no adhesions were identified except the future which were taken down sharply and followed it down ultimately the ileocecal valve. The cecum was down in the pelvis and it had some liquid stool but there were no obstructions noted distal to that once we had complete around the small bowel we were left with the colostomy and the hernia that patient had we were able to first of all dissect out by first making elliptical incision around the ostomy itself going through subcutaneous tissue and created up to a point that we were inside the hernial sac freed the colostomy in the colon from the hernial sac by first using a RAHEL stapler and and taken a bit off the opening of the ostomy itself and then completely remove the hernial sac from the subcutaneous tissue the colon was then placed in the abdomen it was free-flowing and there was no problem as far as doing a primary anastomosis as far as any tension we then followed the previous sutures that were placed to identify the distal closure from a Litzy procedure there was some some adhesion maybe the bladder to that area we freed this up and I oversewed the those adhesions on the bladder running 3-0 chromic suture. The sigmoid colon down to the rectal area was mobilized we placed a right angle intestinal clamp and divided then freshened up the area. The pr oximal colon was then freshened up with another appointment of RAHEL stapler the staple line were oversewn with 3-0 interrupted silk side then anastomosis between the proximal descending colon sigmoid and distal sigmoid rectum oversewn anastomosis side than using 3-0 silk outer layer 3-0 chromic inner layer anastomosis was checked for patency and appear satisfactory. At this point we tried to position an NG tube in the stomach and the patient had a very hard time to do it when she first came in she had had a previous Staci fundoplication therefore attempted even with anesthesia the try to place this and it seemed to be curled up into the recurrent hiatal hernia that she has open post diaphragmatic therefore I elected at this point to place a gastrostomy tube in the event that she will needed decompression we did a by placing it 18 5 cc Pedraza through a stab wound to the left upper quadrant position it into the stomach along the greater curvature by pursestring of 2-0 silk 3-0 silk x2 Pedraza catheter was inserted then the stomach was attached to the anterior abdominal wall with 3-0 silk sutures. The Pedraza catheter was pulled up with a 5 cc balloon and sutured to the skin edge with 2-0 silk suture. The abdomen was then checked from stasis and appears satisfactory I elected for small to drain the pelvic area using 15 Pastor drain in left lower quadrant position in that area then to protect the anastomosis since we had an no bowel prep approximately 8 8 inches from the ileocecal valve there were able to make a small opening into the ileum passing suture of 2-0 silk to control this area then the right lower quadrant approximately quarter inch size of the skin the subcutaneous tissue and right about McBurney's point was made down the subcutaneous tissue onto the rectus muscle by dividing the anterior rectus with a cruciate type of incision and this into the abdomen to accommodate 2 fingers to 3 fingers without any difficulty this terminal ileum was brought out with a Troy and marked with the medially with a 3-0 silk suture to make sure that we avoid any rotation by suturing a this serous portion to the opening of the os of the abdominal wall the abdomen was then closed with retention suture #5 Mersilene that would be tied over a bolster #1 PDS mendozaou was present throughout the procedure s fashion to close the fascia 5/8 of an inch Ramo was placed in the subcu marilou for skin edges the tension suture requirements over a bolster. The hernial site and colostomy site in the left lower quadrant was first by after removing the hernial sac we had closed the 2 fashion of #0 PDS 1 for the posterior rectus and lateral to the external Bleich in a linear aspect in order to sides and also placed another layer of 0 PDS to the anterior rectus to the similar muscle subcutaneous tissue was brought together once we had placed the 19 Pastor drain into the cavity with interrupted 2-0 Vicryl the edges left open at this point in the ileostomy that we had taken out we created a small opening enough to accommodate a plastic bridge that would be sutured in at 4 points with 2-0 silk suture we make a Bleich cut into the anterior surface of the ileum and the proximal aspect to the distal aspect then inverted that to create a rows with 3 oh's interrupted 3-0 chromic suture it was positioned in place I placed the surgeon's finger inside the proximal opening without difficulty when in the bed abdomen and an ostomy bag was applied the procedure was tolerated well by the patient estimated blood loss approximately 250 cc the patient was taken recovery in good condition addendum Chidi tovar was present throughout the procedure and helped the retraction exposure wound closure addendum I spoke with her Spike by phone after the surgery Surgeon Alberto Beckham MD Award Clerk efra tovar Estimated Blood Loss 250 Findings Consistent with Post-Op Diagnosis Specimens part of descending colon hernia sac Description of Procedure merda I attest to the content of the Intraoperative Record and any orders documented therein. Any exceptions are noted below. Signed By:<Electronically signed by Alberto Beckham MD>06/13/20 1301 PG Care Time/CCT Total # of Minutes Spent Total Time Spent with Patient: Total time spent is greater than 50% in coordination of care (as documented) at patient's floor/unit and/or counseling patient: Coding Level of Care Code 25761 Subseq Hosp Care Lvl 2 Diagnoses Small bowel obstruction K56.609
[2020-06-14] MEDS: HEPARIN SOD 5,000 UNIT/0.5 ML VIAL SQ SCH ×2 (09:07→20:33)
[2020-06-14] MEDS: amLODIPine BESYLATE 5 MG TAB PO SCH (10:30)
[2020-06-14] MEDS: TOLTERODINE TARTRATE LA 4 MG CAPCR PO SCH (10:30)
[2020-06-14] MEDS: MIRABEGRON ER 25 MG TAB PO SCH (10:30)
[2020-06-14] MEDS: NYSTATIN POWDER 15GM BTL EXT SCH ×2 (10:31→21:17)
[2020-06-14] MEDS: SODIUM CHLORIDE 0.9% 1000ML 1,000 ML IV SCH (15:59)
[2020-06-14] MEDS: PROMETHAZINE HCL 12.5 MG in SODIUM CHLORIDE 0.9% 50 ML IV PRN (20:59)
[2020-06-15] MEDS: LACTATED RINGER'S 1,000 ML IV SCH ×3 (02:48→21:18)
[2020-06-15 04:11] LABS: Basophils # (auto) 0.02 K/uL (0-0.2); Basophils % (auto) 0.3 %; Eosinophils # (auto) 0.33 K/uL (0-0.5); Eosinophils % (auto) 4.7 %; Hemoglobin 11.9 g/dL (12.0-16.0); Immature Granulocytes # (auto) 0.02 K/uL (0.00-0.02); Immature Granulocytes % (auto) 0.3 %; Lymphocytes # (auto) 1.36 K/uL (1.2-3.4); Lymphocytes % (auto) 19.3 %; Mean Corpuscular Hemoglobin 30.3 pg (25-34); Mean Corpuscular Hgb Conc 33.1 g/dL (32-36); Mean Corpuscular Volume 91.6 fL (80-100); Mean Platelet Volume 9.4 fL (7.4-10.4); Monocytes # (auto) 0.72 K/uL (0.11-0.59); Monocytes % (auto) 10.2 %; Neutrophils # (auto) 4.59 K/uL (1.4-6.5); Neutrophils % (auto) 65.2 %; Platelet Count 186 K/uL (130-400); RDW Coefficient of Variation 12.7 % (11.5-14.5); RDW Standard Deviation 42.7 fL (36.4-46.3); Red Blood Count 3.93 M/uL (4.2-5.4); White Blood Count 7.04 K/uL (4.8-10.8)
[2020-06-15 04:29] LABS: Calcium 8.1 mg/dl (8.5-10.1); Creatinine Clr Calc Pharmacy 66.8 ml/min; Est GFR (African American) 96.9; Est GFR (Non-African American) 83.6; Magnesium 1.8 mg/dl (1.8-2.4); Potassium 3.7 mmol/L (3.5-5.1)
[2020-06-15] MEDS: ACETAMINOPHEN 1,000 MG/100 ML VIAL IV SCH ×3 (04:59→22:30)
[2020-06-15] MEDS ORDERED: POTASSIUM CHLORIDE CRTAB 20 MEQ TABCR PO ONE (10:18)
[2020-06-15] MEDS ORDERED: LACTATED RINGER'S 1,000 ML IV SCH (10:18)
--- NOTE | 2020-06-15 17:43 | Hospitalist Progress Note ---
Date of Service June 15, 2020 Assessment & Plan (1) Small bowel obstruction: Patient is a 65-year-old female with a past medical history of Crohn's disease, degenerative disc disease, history of anesthesia reaction, difficulty waking, history of kidney stones, hypertension, osteoarthritis, sleep apnea,, History of cholecystectomy, recent history January 29, 2020 of an ex lap with open resection of the sigmoid colon and creation of a colostomy by Dr. Beckham, history of Niessen fundoplication with hernia repair who presents with approximately 12-hour history of significant abdominal pain diagnosed with a small bowel obstruction by imaging. Surgery was consulted and recommended medi leandra management with close observation initially. * Surgery Consulted * Attempted enema via ostomy 06/12 with minimal output * Persistent SBO with increased abdominal pain and surgery planned for surgery this morning POD #3 s/p Exploratory Laparotomy, Lysis of Adhesions, Peristomal Hernia Repair, Closure of Colostomy, Protective Ileostomy, Gastrostomy tube placement(Not Applicable) - Alberto Beckham. EBL 250cc. Pre-op h/h * --> see operative report for extensive anastomosis with placement of gastrostomy tube and MARILYN LLQ x 2 * Plans for possible gastrostomy tube removal in approximately 10 days or so if able, per patient with discussion with Dr. Beckham * Post-operative orders per Dr. Beckham * Morphine PROCESSING MANAGER for pain control * Cefoxitin 2gm Q6H post-operatively * LR @ 100cc/hr * Tylenol 1000mg IV Q8H * Protonix 40mg IV BID for now -- can transition to PO once continues to have PO intake without n/v. Will transition to PO 40mg BID now * H/h improved to 11.9/36 * Afebrile, WBC 7k * Continue to monitor * Serial monitoring of blood counts, electrolytes and replace as needed -- 1gm IV mag for 1.8 to keep closer to 2.0 Abdominal pain * Secondary to the above * Tylenol IV * PROCESSING MANAGER pump post-operatively * See above Parasternal hernia * Previously repaired, likely contributing to the above * Repair as above -- see operative note Crohn's ileitis * Likely contributing to above presentation, continue home medications Electrolyte derangements * Patient presents with hypokalemia, repleted potassium as indicated with repeat K 3.9 but was again low morning 12/3 additional 4K riders ordered for K 3.3 * Continues to be stable, K 3.7 * Continue to monitor Hypertension * Amlodipine 5mg PO daily * BP stable 128/77 * Hydralazine prn * Continue to monitor GERD * Protonix -- will utilize IVP as patient had been NPO and patient just now ate breakfast --> switch back to PO BID in AM if able to tolerate Overactive Bladder * Continue fesoterodine 8mg, mirabegron 50mg daily DVT Prophylaxis: * SCD * Ambulation encouraged * Held off chemoproph in setting of surgery for this morning --> Heparin SQ post-operatively Dispo: continued inpatient stay Admission and Anticipated Discharge Date Admission Date: June 11, 2020 Subjective Patient evaluated this morning. Still with significant pain and currently pushed morphine PROCESSING MANAGER. No nausea or vomiting. Pain with movement but expected. Tolerated clear liquid diet. OK by surgery to clamp Gtube for 6 hours and then leave to gravity for 2 hours. Clamp if increased n/v. No chest pain, shortness of breath at this time. Review of Systems Review of Systems: All systems reviewed & are unremarkable except as noted in HPI & below Physical Exam Constitutional: well developed, + obese and comfortable; no acute distress Eyes: + anicteric sclerae and PERRL ENMT: Ears: no hearing impairment Nose: no external nose abnormality Neck: normal visual inspection and trachea midline Respiratory: normal respiratory effort, lungs clear to auscultation Auscultation: + diminished lung sounds Cardiovascular: RRR, no murmur, no edema Gastrointestinal (Abdomen): Inspection/Auscultation: + abdomen distended and + hypoactive bowel sounds Percussion/Palpation: + abdomen tender (diffusely) Gastrostomy tube clamped MARILYN x 2 with scant serous drainage, blood in tubing noted Musculoskeletal: no cyanosis or clubbing, extremities motor strength 5/5 Neurologic: PERRL, EOMI, accommodation nl, no face palsy, no dysarthria Psychiatric: Orientation: alert and oriented x 3 Genitourinary: pedraza draining yellow urine Lymphatic: no cervical or axillary lymphadenopathy PG Care Time/CCT Total # of Minutes Spent Total Time Spent with Patient: Total time spent is greater than 50% in coordination of care (as documented) at patient's floor/unit and/or counseling patient: Coding Level of Care Code 27105 Subseq Hosp Care Lvl 2 Diagnoses Small bowel obstruction K56.607
[2020-06-15] MEDS: TOLTERODINE TARTRATE LA 4 MG CAPCR PO SCH (17:44)
[2020-06-15] MEDS: SODIUM CHLORIDE 0.9% 1000ML 1,000 ML IV SCH (17:45)
[2020-06-15] MEDS: MIRABEGRON ER 25 MG TAB PO SCH (17:45)
[2020-06-15] MEDS: NYSTATIN POWDER 15GM BTL EXT SCH ×2 (17:45→21:02)
[2020-06-15] MEDS: amLODIPine BESYLATE 5 MG TAB PO SCH (17:45)
[2020-06-15] MEDS: HEPARIN SOD 5,000 UNIT/0.5 ML VIAL SQ SCH ×2 (17:45→21:04)
[2020-06-15] MEDS ORDERED: LIDOCAINE 5% 1 PATCH TD PRN (17:48)
[2020-06-15] MEDS: PANTOprazole 40 MG in SYRINGE 0 ML IV SCH (17:52)
[2020-06-15] MEDS ORDERED: MAGNESIUM SULFATE / D5W 1 GM/100 ML BAG IV ONE (18:00)
[2020-06-15] MEDS: diphenhydrAMINE 50 MG/ML VIAL IV PRN (21:15)
[2020-06-15] MEDS: PANTOprazole 40 MG TAB PO SCH (21:16)
--- NOTE | 2020-06-16 06:12 | Surgery Progress Note ---
Date of Service June 16, 2020 Assessment & Plan (1) Colostomy status: Patient status post colostomy closure with ileostomy and gastrostomy She continues have pain but she appears to be doing relatively well Her abdomen shows her ileostomy to be functioning with gas and fluid within the bag Advance her diet to full liquid Continue her SYSTEMS CONSULTANT pump Discontinue her Kamara catheter Encourage mobilization Admission and Anticipated Discharge Date Admission Date: June 11, 2020 Results & Data ([facility]) Vital Signs (Past 12 Hours) Vital Signs Temp Pulse Resp BP Pulse Ox 06/16/20 02:44 36.8 C 86 14 138/80 90 06/15/20 22:52 37.0 C 92 H 18 123/71 92 06/15/20 19:38 37.2 C 92 H 18 131/77 93 PG Care Time/CCT Total # of Minutes Spent Total Time Spent with Patient: Total time spent is greater than 50% in coordination of care (as documented) at patient's floor/unit and/or counseling patient: Coding Level of Care Code None Diagnoses Colostomy status Z93.3
[2020-06-16] MEDS: ACETAMINOPHEN 1,000 MG/100 ML VIAL IV SCH ×2 (06:20→14:19)
[2020-06-16] MEDS: LACTATED RINGER'S 1,000 ML IV SCH (06:25)
[2020-06-16 06:44] LABS: Basophils # (auto) 0.02 K/uL (0-0.2); Basophils % (auto) 0.4 %; Eosinophils # (auto) 0.35 K/uL (0-0.5); Eosinophils % (auto) 6.6 %; Hematocrit (blood only) 35.9 % (37-47); Hemoglobin 11.6 g/dL (12.0-16.0); Immature Granulocytes # (auto) 0.01 K/uL (0.00-0.02); Immature Granulocytes % (auto) 0.2 %; Lymphocytes # (auto) 1.34 K/uL (1.2-3.4); Lymphocytes % (auto) 25.1 %; Mean Corpuscular Hemoglobin 29.8 pg (25-34); Mean Corpuscular Hgb Conc 32.3 g/dL (32-36); Mean Corpuscular Volume 92.3 fL (80-100); Mean Platelet Volume 9.7 fL (7.4-10.4); Monocytes # (auto) 0.45 K/uL (0.11-0.59); Monocytes % (auto) 8.4 %; Neutrophils # (auto) 3.16 K/uL (1.4-6.5); Neutrophils % (auto) 59.3 %; Platelet Count 236 K/uL (130-400); RDW Coefficient of Variation 12.9 % (11.5-14.5); RDW Standard Deviation 43.7 fL (36.4-46.3); Red Blood Count 3.89 M/uL (4.2-5.4); White Blood Count 5.33 K/uL (4.8-10.8)
[2020-06-16 07:13] LABS: BUN Creatinine Ratio 10.3 (10-20); Creatinine Clr Calc Pharmacy 74.8 ml/min; Est GFR (African American) 106.9; Est GFR (Non-African American) 92.2; Potassium 3.8 mmol/L (3.5-5.1)
[2020-06-16 07:16] LABS: Albumin Globulin Ratio 0.5 (0.9-2); Bilirubin,Total 0.5 mg/dl (0.2-1)
--- NOTE | 2020-06-16 08:54 | Hospitalist Progress Note ---
Date of Service June 16, 2020 Assessment & Plan (1) Small bowel obstruction: Patient is a 65-year-old female with a past medical history of Crohn's disease, degenerative disc disease, history of anesthesia reaction, difficulty waking, history of kidney stones, hypertension, osteoarthritis, sleep apnea,, History of cholecystectomy, recent history January 29, 2020 of an ex lap with open resection of the sigmoid colon and creation of a colostomy by Dr. Beckham, history of Niessen fundoplication with hernia repair who presents with significant abdominal pain diagnosed with a small bowel obstruction by imaging. Surgery was consulted and eventually took to surgery 06/13 for Ex-lap with lysis of adhesions, repair of peristomal hernia , closure of colostomy and protective Ileostomy, with G tube placement * 06/13/20 s/p Exploratory Laparotomy, Lysis of Adhesions, Peristomal Hernia Repair, Closure of Colostomy, Protective Ileostomy, Gastrostomy tube placement(Not Applicable) - Alberto Beckham. * Plans for possible gastrostomy tube removal in approximately 10 days or so if able, per patient with discussion with Dr. Beckham * Morphine RADIO MAINTAINER for pain control of the patient attempt only use her RADIO MAINTAINER when she is painful to determine her actual opiate need * Cefoxitin 2gm Q6H post-operatively now discontinued * Protonix PO 40mg BID Crohn's * continue home medications Hypertension * Amlodipine 5mg PO daily * Hydralazine prn Overactive Bladder * Continue fesoterodine 8mg, mirabegron 50mg daily DVT Prophylaxis: * SCD * Ambulation encouraged * Heparin SQ post-operatively Dispo: continued inpatient stay Admission and Anticipated Discharge Date Admission Date: June 11, 2020 Subjective Patient is thankful for having her surgical procedure with Dr. Fei Wade despite having an ileostomy and a gastrostomy tube. She did have her colostomy reversed. She is able to tolerate small amounts of oral intake. She is only using her RADIO MAINTAINER because she was told that it would make her get better faster if she is out of pain. Encouraged her not only use her RADIO MAINTAINER when she has pains we can determine her need of pain control Review of Systems Review of Systems: Mild distress and fatigue no headache, blurry or double vision no speech or swallowing issues no chest pain, pressure or palpitations no shortness of breath, cough or wheezes mild abdominal pain, no nausea or vomiting no dysuria, hematuria or frequency no focal joint pain or swelling no back pain, CVA tenderness or radicular pain no bruising, bleeding or rashes no focal signs of weakness or numbness or altered sensation no complaints of anxiety or depression.. Physical Exam Physical Exam: The patient appeared well nourished and normally developed. Vital signs as documented. Head exam is normocephalic atraumatic no scleral icterus Neck is without JVD, thyromegaly, or carotid bruits. Lungs are clear to auscultation, no focal loss of breath sounds Cardiac exam, Rhythm is regular.. No murmurs, rubs or gallops. Abdominal exam reveals ileostomy in the right quadrant G-tube in the left quadrant bowel sounds are present Extremities are nonedematous and both pedal pulses are present Neurologic exam is alert and oriented, no focal loss of strength or sensation Skin is without bruises or rashes Psychologically is without concerns for anxiety or depression. Results & Data Results & Data ([facility]) Vital Signs (Past 12 Hours) Vital Signs Temp Pulse Resp BP Pulse Ox 06/16/20 07:54 98.6 F 84 16 136/80 90 06/16/20 02:44 98.2 F 86 14 138/80 90 06/15/20 22:52 98.6 F 92 H 18 123/71 92 PG Care Time/CCT Total # of Minutes Spent Total Time Spent with Patient: Total time spent is greater than 50% in coordination of care (as documented) at patient's floor/unit and/or counseling patient: Coding Level of Care Code 11355 Subseq Hosp Care Lvl 2 Diagnoses Small bowel obstruction K56.609
[2020-06-16] MEDS: amLODIPine BESYLATE 5 MG TAB PO SCH (09:10)
[2020-06-16] MEDS: TOLTERODINE TARTRATE LA 4 MG CAPCR PO SCH ×2 (09:10→09:15)
[2020-06-16] MEDS: PANTOprazole 40 MG TAB PO SCH ×2 (09:10→20:21)
[2020-06-16] MEDS: HEPARIN SOD 5,000 UNIT/0.5 ML VIAL SQ SCH ×2 (09:11→20:21)
[2020-06-16] MEDS: NYSTATIN POWDER 15GM BTL EXT SCH ×2 (09:11→20:21)
[2020-06-16] MEDS: MIRABEGRON ER 25 MG TAB PO SCH (09:11)
[2020-06-16] MEDS: SODIUM CHLORIDE 0.9% 1000ML 1,000 ML IV SCH (14:19)
[2020-06-16] MEDS: diphenhydrAMINE 50 MG/ML VIAL IV PRN (20:29)
[2020-06-17] MEDS: LACTATED RINGER'S 1,000 ML IV SCH ×2 (03:14→20:59)
[2020-06-17] MEDS: ONDANSETRON INJ 2 MG/ML 2 ML VIAL IV PRN (04:10)
[2020-06-17 07:07] LABS: Basophils # (auto) 0.02 K/uL (0-0.2); Basophils % (auto) 0.4 %; Eosinophils # (auto) 0.31 K/uL (0-0.5); Eosinophils % (auto) 5.9 %; Hematocrit (blood only) 37.7 % (37-47); Hemoglobin 12.2 g/dL (12.0-16.0); Immature Granulocytes # (auto) 0.03 K/uL (0.00-0.02); Immature Granulocytes % (auto) 0.6 %; Lymphocytes # (auto) 1.47 K/uL (1.2-3.4); Lymphocytes % (auto) 27.8 %; Mean Corpuscular Hemoglobin 29.8 pg (25-34); Mean Corpuscular Hgb Conc 32.4 g/dL (32-36); Mean Corpuscular Volume 92.2 fL (80-100); Mean Platelet Volume 9.2 fL (7.4-10.4); Monocytes # (auto) 0.42 K/uL (0.11-0.59); Monocytes % (auto) 7.9 %; Neutrophils # (auto) 3.04 K/uL (1.4-6.5); Neutrophils % (auto) 57.4 %; Platelet Count 241 K/uL (130-400); RDW Coefficient of Variation 12.7 % (11.5-14.5); Red Blood Count 4.09 M/uL (4.2-5.4); White Blood Count 5.29 K/uL (4.8-10.8)
[2020-06-17 07:24] LABS: Calcium 8.3 mg/dl (8.5-10.1); Creatinine Clr Calc Pharmacy 77.1 ml/min; Est GFR (Non-African American) 93.2
--- NOTE | 2020-06-17 08:13 | Surgery Progress Note ---
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 that keeping her awake at night and she is far enough now 4 days out that she may be able to tolerate oral analgesics with some supplementation IV morphine Temperature spike noted last night was one-time occurrence we will check her urine to make sure there is no infection she has had a longstanding history of bladder outlet obstruction she has had Botox injections in the past (2) Small bowel obstruction: Admission and Anticipated Discharge Date Admission Date: June 11, 2020 Subjective Overall she feels well she is tired of wearing the O2 sensors keeps her awake at night 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 Yesterday she stated she had some pressure with urination eventually just subsided Over the weekend she was nauseated off and on the G-tube was turned on 6 hours on 6 hours off Her abdominal pain is subsiding no real issues Physical Exam Physical Exam: When I walked into the room she was sleeping away she was easily awoken oriented with no distress The G-tube is open at this time and it shows some bilious drainage the output noted over the last 24 hours The colostomy site the incision is intact the drain in that site which is the 19 round Umesh-Sharma is very serous minimally sanguinous drainage which was removed The midline incision retention sutures are intact subcutaneous Ramo drain minimal drainage and that was removed The ileostomy site free of any infection and has moderate amount of semiformed contents The patient denies any flatus Results & Data ([facility]) Vital Signs (Past 12 Hours) Vital Signs Temp Pulse Resp BP Pulse Ox 06/16/20 23:27 37.9 C H 100 H 14 153/87 H 92 06/16/20 20:18 36.9 C 94 H 18 136/81 93 PG Care Time/CCT Total # of Minutes Spent Total Time Spent with Patient: Total time spent is greater than 50% in coordination of care (as documented) at patient's floor/unit and/or counseling patient: Coding Level of Care Code None Diagnoses Colostomy status Z93.3 Small bowel obstruction K56.609
[2020-06-17] MEDS ORDERED: MoRPHine SULFATE 4 MG/ML 1 ML CARP\\VIAL IV PRN (08:14)
[2020-06-17] MEDS: NYSTATIN POWDER 15GM BTL EXT SCH ×2 (09:08→20:51)
[2020-06-17] MEDS: MIRABEGRON ER 25 MG TAB PO SCH (09:10)
[2020-06-17] MEDS: PANTOprazole 40 MG TAB PO SCH ×2 (09:10→20:55)
[2020-06-17] MEDS: HEPARIN SOD 5,000 UNIT/0.5 ML VIAL SQ SCH ×2 (09:10→20:53)
[2020-06-17] MEDS: TOLTERODINE TARTRATE LA 4 MG CAPCR PO SCH ×2 (09:11→09:42)
[2020-06-17] MEDS: amLODIPine BESYLATE 5 MG TAB PO SCH (09:11)
[2020-06-17] MEDS: oxyCODONE/ACETAMINOPHEN 5mg/325mg TAB PO PRN ×2 (12:26→21:01)
--- NOTE | 2020-06-17 12:38 | Hospitalist Progress Note ---
Date of Service June 17, 2020 Assessment & Plan (1) Small bowel obstruction: Patient is a 65-year-old female with a past medical history of Crohn's disease, degenerative disc disease, history of anesthesia reaction, difficulty waking, history of kidney stones, hypertension, osteoarthritis, sleep apnea,, History of cholecystectomy, recent history January 29, 2020 of an ex lap with open resection of the sigmoid colon and creation of a colostomy by Dr. Beckham, history of Niessen fundoplication with hernia repair who presents with significant abdominal pain diagnosed with a small bowel obstruction by imaging. Surgery was consulted and eventually took to surgery 06/13 for Ex-lap with lysis of adhesions, repair of peristomal hernia , closure of colostomy and protective Ileostomy, with G tube placement * 06/13/20 s/p Exploratory Laparotomy, Lysis of Adhesions, Peristomal Hernia Repair, Closure of Colostomy, Protective Ileostomy, Gastrostomy tube placement - Alberto Beckham. * Plans for possible gastrostomy tube removal possibly later this week if able, per patient with discussion with Dr. Beckham * Morphine VEGETABLE INSPECTOR discontinued 06/17 by surgery * Cefoxitin 2gm Q6H post-operatively now discontinued * Protonix PO 40mg BID * LR @ 50 mls/hr - continue while taking poor po (2) Crohn's ileocolitis: Continue home medications (3) Overactive bladder: Continue fesoterodine 8mg, mirabegron 50mg daily (4) Hypertension: * Amlodipine 5mg PO daily * Hydralazine prn * (5) DVT prophylaxis: SCD * Ambulation encouraged * Heparin SQ Admission and Anticipated Discharge Date Admission Date: June 11, 2020 Subjective Ms. Martin feels very tired today and did not sleep well. Her pain is under good control. She is eating small amounts of jello and pudding. Her ostomy is producing moderate amount of brown stool Review of Systems Constitutional: no fever, no chills and no body aches Respiratory: no cough and no dyspnea Cardiovascular: no chest pain and no palpitations Gastrointestinal: as per Subjective / HPI Genitourinary: no dysuria and no urinary hesitancy Musculoskeletal: no back pain and no joint pain Integumentary: no rash Results & Data Results & Data ([facility]) Vital Signs (Past 12 Hours) Vital Signs Temp Pulse Resp BP Pulse Ox 06/17/20 08:11 36.7 C 92 H 16 152/88 H 94 PG Care Time/CCT Total # of Minutes Spent Total Time Spent with Patient: Total time spent is greater than 50% in coordination of care (as documented) at patient's floor/unit and/or counseling patient: Coding Level of Care Code 38665 Subseq Hosp Care Lvl 2 Diagnoses Small bowel obstruction K56.609 Crohn's ileocolitis K50.80 Overactive bladder N32.81 Hypertension I10 DVT prophylaxis Z29.9
[2020-06-17 12:50] LABS: Appearance Urine Turbid (Clear); Bacteria Urine Automated Negative (Negative); Bilirubin Urine Negative (Negative); Blood Urine Negative (Negative); Cast Urine Automated 0 /lpf (0-5); Color Urine Yellow; Epithelial Cell Urine Auto 20-30 /lpf (0-5); Glucose Urine UA Negative (Negative); Ketones Urine Trace (Negative); Leukocyte Esterase Urine Negative (Negative); Nitrite Urine Negative (Negative); Protein Urine Negative (Negative); RBC Urine Automated 0-4 /hpf (0-4); Specific Gravity Urine 1.011 (1.000-1.030); Urobilinogen Urine Negative (Negative); pH Urine 8.5 (4.5-7.5)
[2020-06-17] MEDS: diphenhydrAMINE 50 MG/ML VIAL IV PRN (23:59)
[2020-06-18 06:14] LABS: Hematocrit (blood only) 37.3 % (37-47); Hemoglobin 12.1 g/dL (12.0-16.0); Mean Corpuscular Hgb Conc 32.4 g/dL (32-36); Mean Corpuscular Volume 92.6 fL (80-100); Mean Platelet Volume 9.4 fL (7.4-10.4); Platelet Count 268 K/uL (130-400); RDW Coefficient of Variation 12.8 % (11.5-14.5); RDW Standard Deviation 43.4 fL (36.4-46.3); Red Blood Count 4.03 M/uL (4.2-5.4); White Blood Count 5.11 K/uL (4.8-10.8)
[2020-06-18 06:23] LABS: Estimated Average Glucose 108 mg/dl; Hemoglobin A1C 5.4 % (4.5-5.6)
[2020-06-18 06:46] LABS: BUN Creatinine Ratio 4.9 (10-20); Calcium 8.4 mg/dl (8.5-10.1); Creatinine Clr Calc Pharmacy 65.1 ml/min; Est GFR (African American) 93.9; Potassium 3.5 mmol/L (3.5-5.1)
[2020-06-18] MEDS ORDERED: diphenhydrAMINE Capsule 25 MG CAP PO PRN (07:27)
--- NOTE | 2020-06-18 07:30 | Surgery Progress Note ---
Date of Service June 18, 2020 Assessment & Plan (1) Small bowel obstruction: POD 5 colostomy takedown, protective ileostomy seen with Dr. Beckham may shower diet as red plan to d/c home with drain, possibly tomorrow outpatient BE Admission and Anticipated Discharge Date Admission Date: June 11, 2020 Subjective pain managed with Percocet, not eating full meals Physical Exam Gastrointestinal (Abdomen): Inspection/Auscultation: + abdominal surgical inci myra (clean, dry) and + abdominal surgical drain present (20 cc) Percussion/Palpation: abdomen soft Results & Data ([facility]) Vital Signs (Past 12 Hours) Vital Signs Temp Pulse Resp BP Pulse Ox 06/18/20 07:14 36.8 C 86 16 137/76 91 06/17/20 23:29 37.3 C 93 H 15 127/81 94 PG Care Time/CCT Total # of Minutes Spent Total Time Spent with Patient: Total time spent is greater than 50% in coordination of care (as documented) at patient's floor/unit and/or counseling patient: Coding Level of Care Code None Diagnoses Small bowel obstruction K56.609
[2020-06-18] MEDS: amLODIPine BESYLATE 5 MG TAB PO SCH (09:13)
[2020-06-18] MEDS: NYSTATIN POWDER 15GM BTL EXT SCH ×2 (09:13→20:37)
[2020-06-18] MEDS: TOLTERODINE TARTRATE LA 4 MG CAPCR PO SCH (09:13)
[2020-06-18] MEDS: HEPARIN SOD 5,000 UNIT/0.5 ML VIAL SQ SCH ×2 (09:13→21:33)
[2020-06-18] MEDS: MIRABEGRON ER 25 MG TAB PO SCH (09:14)
[2020-06-18] MEDS: PANTOprazole 40 MG TAB PO SCH ×2 (09:14→21:34)
[2020-06-18] MEDS: oxyCODONE/ACETAMINOPHEN 5mg/325mg TAB PO PRN ×2 (09:20→21:37)
--- NOTE | 2020-06-18 11:28 | Hospitalist Progress Note ---
Date of Service June 18, 2020 Assessment & Plan (1) Small bowel obstruction: Patient is a 65-year-old female with a past medical history of Crohn's disease, degenerative disc disease, history of anesthesia reaction, difficulty waking, history of kidney stones, hypertension, osteoarthritis, sleep apnea,, History of cholecystectomy, recent history January 29, 2020 of an ex lap with open resection of the sigmoid colon and creation of a colostomy by Dr. Beckham, history of Niessen fundoplication with hernia repair who presents with significant abdominal pain diagnosed with a small bowel obstruction by imaging. Surgery was consulted and eventually took to surgery 06/13 for Ex-lap with lysis of adhesions, repair of peristomal hernia , closure of colostomy and protective Ileostomy, with G tube placement * 06/13/20 s/p Exploratory Laparotomy, Lysis of Adhesions, Peristomal Hernia Repair, Closure of Colostomy, Protective Ileostomy, Gastrostomy tube placement - Alberto Beckham. * Will dc with drain, possibly tomorrow. * pain is controlled * Cefoxitin 2gm Q6H post-operatively now discontinued * Protonix PO 40mg BID * will dc IVF today as patient taking in better po (2) Crohn's ileocolitis: Continue home medications (3) Overactive bladder: Continue fesoterodine 8mg, mirabegron 50mg daily (4) Hypertension: * stable * Continue Amlodipine 5mg PO daily * Hydralazine prn * (5) DVT prophylaxis: SCD * Ambulation encouraged * Heparin SQ Admission and Anticipated Discharge Date Admission Date: June 11, 2020 Subjective Ms Martin's pain is under good control. She is ambulating around her room without difficulty. Eating and drinking ok. Emptying her ostomy about twice a day, putting out brown liquid stool Review of Systems Constitutional: no fever and no body aches Respiratory: no cough and no dyspnea Cardiovascular: no chest pain, no palpitations and no lightheadedness Gastrointestinal: no abdominal pain, no nausea and no vomiting Genitourinary: no dysuria and no urinary hesitancy Musculoskeletal: no back pain and no joint pain Integumentary: no rash Physical Exam Physical Exam: General: no distress Eyes: normal inspection, PERLL Respiratory: chest non tender, clear to auscultation, normal breath sounds, no respiratory distress, no accessory muscle use Cardiac: regular rate and rhythm, no rub or gallop, no murmur, no edema, no jvd GI/: active bowel sounds, no abd pain or tenderness, soft, non distended Extremities: normal range of motion, normal strength, non tender Neuro/Psych: alert and oriented x 3, normal mood and affect Skin: normal color, dry, healing surgical incisions, drain, G tube Results & Data Results & Data ([facility]) Vital Signs (Past 12 Hours) Vital Signs Temp Pulse Resp BP Pulse Ox 06/18/20 07:14 36.8 C 86 16 137/76 91 06/17/20 23:29 37.3 C 93 H 15 127/81 94 PG Care Time/CCT Total # of Minutes Spent Total Time Spent with Patient: Total time spent is greater than 50% in coordination of care (as documented) at patient's floor/unit and/or counseling patient: Coding Level of Care Code 90930 Subseq Hosp Care Lvl 2 Diagnoses Small bowel obstruction K56.609 Crohn's ileocolitis K50.80 Overactive bladder N32.81 Hypertension I10 DVT prophylaxis Z29.9
[2020-06-18] MEDS: LACTATED RINGER'S 1,000 ML IV SCH (12:13)
[2020-06-19] MEDS: oxyCODONE/ACETAMINOPHEN 5mg/325mg TAB PO PRN ×3 (03:04→13:14)
[2020-06-19 06:55] LABS: Hematocrit (blood only) 37.9 % (37-47); Hemoglobin 12.3 g/dL (12.0-16.0); Mean Corpuscular Hemoglobin 29.9 pg (25-34); Mean Corpuscular Hgb Conc 32.5 g/dL (32-36); Mean Corpuscular Volume 92.2 fL (80-100); Mean Platelet Volume 9.6 fL (7.4-10.4); Platelet Count 327 K/uL (130-400); RDW Coefficient of Variation 12.9 % (11.5-14.5); RDW Standard Deviation 43.3 fL (36.4-46.3); Red Blood Count 4.11 M/uL (4.2-5.4); White Blood Count 6.61 K/uL (4.8-10.8)
[2020-06-19 07:23] LABS: BUN Creatinine Ratio 8.3 (10-20); Calcium 8.7 mg/dl (8.5-10.1); Creatinine Clr Calc Pharmacy 59.7 ml/min; Est GFR (African American) 84.5; Est GFR (Non-African American) 72.9; Potassium 3.7 mmol/L (3.5-5.1)
--- NOTE | 2020-06-19 07:50 | Surgery Progress Note ---
Date of Service June 19, 2020 Assessment & Plan (1) Colostomy status: Patient is 6 days postop exploratory lap lysis of adhesion parastomal hernia repair takedown of colostomy protective ileostomy and gastrostomy she is doing very well and at this point she can be discharged home I instructed her eats smaller meals more frequent since she is does have a recurrence of a hiatal hernia and sometimes she gets it filled up quickly regarding her abdominal surgical site she can shower over reapply the dressing as need be we will give her some p.o. analgesics she may or may not need him he should not drive or lift anything heavier than 10 pounds for about a week we will schedule her tenta tively for a barium enema to visualize the low anterior anastomosis for next week and pending those results hopefully will close the ileostomy before Jane all questions were answered We will check later this morning early afternoon to finalize all those plans with her and make sure the medical service has no issue with her being discharged (2) Small bowel obstruction: Admission and Anticipated Discharge Date Admission Date: June 11, 2020 Subjective States had a good day yesterday yesterday had a regular did not agree with her too much forming a lot of gas diet with some fibrin at the but no emesis or nausea She is pretty much pain-free no complaints of abdominal pain in the colostomy bag has quite a bit of gas that she stated Physical Exam Physical Exam: Comfortable laying in bed without any issues looking forward to going home The abdominal incision is intact retention sutures are intact minimal drainage from the upper and lower aspect of the incision where the Ramo drain was co lostomy bag is full the back has no problem being secured over the ostomy to the left Pastor drainage 15 which goes in the pelvis has some serous drainage gastrostomy tube has been clamped the ostomy site there is no infection there is no drainage and no tenderness in the incision appears to be healing well Results & Data ([facility]) Vital Signs (Past 12 Hours) Vital Signs Temp Pulse Resp BP Pulse Ox 06/19/20 07:27 36.8 C 83 16 138/80 92 06/18/20 23:01 37.4 C 94 H 18 131/79 93 PG Care Time/CCT Total # of Minutes Spent Total Time Spent with Patient: Total time spent is greater than 50% in coordination of care (as documented) at patient's floor/unit and/or counseling patient: Coding Level of Care Code None Diagnoses Colostomy status Z93.3 Small bowel obstruction K56.609
[2020-06-19] MEDS: TOLTERODINE TARTRATE LA 4 MG CAPCR PO SCH (09:02)
[2020-06-19] MEDS: NYSTATIN POWDER 15GM BTL EXT SCH (09:41)
[2020-06-19] MEDS: amLODIPine BESYLATE 5 MG TAB PO SCH (09:55)
[2020-06-19] MEDS: PANTOprazole 40 MG TAB PO SCH (09:56)
[2020-06-19] MEDS: MIRABEGRON ER 25 MG TAB PO SCH (09:56)
[2020-06-19] MEDS: HEPARIN SOD 5,000 UNIT/0.5 ML VIAL SQ SCH (09:57)
--- NOTE | 2020-06-19 10:18 | Discharge Summary ---
Date of Service June 19, 2020 Admission HPI Per Admitting Provider Patient is a 65-year-old female with a past medical history of Crohn's disease, degenerative disc disease, history of anesthesia reaction, difficulty waking, history of kidney stones, hypertension, osteoarthritis, sleep apnea,, History of cholecystectomy, recent history January 29, 2020 of an ex lap with open resection of the sigmoid colon and creation of a colostomy by Dr. Dorantes, history of Niesen fundoplication with hernia repair who presents with approximately 12-hour history of significant abdominal pain. Patient reports she was in her normal state of health prior to experiencing epigastric pain at around 12 noon this morning. The pain radiated to her back, initially she thought it was just gas and took some Gas-X with no improvement. Her pain continued to worsen and she took a pain pill which did not alleviate her pain. She called her daughter over to replace her ostomy at that point, and the pain continued to increase. Eventually the pain became so severe she requested that her daughter bring her to the [facility] ER. The patient has a history of an ostomy being placed on December 24, she has had normal output and some redness around the site, she has been on some steroids for this. She has had no fevers or chills and some drainage from the site with no blood or melena in the stool, she reports no respiratory symptoms, no nausea, no vomiting no anorexia or other constitutional symptoms. She reported having a normal BM in her colostomy bag yesterday and has been voiding there is no known Covid exposures, her drove her in In the emergency room she was in significant pain, receiving morphine which helped her pain. Given her pain abdominal CT was obtained, formal read is pending however wet read demonstrates intermediate to high-grade small bowel obstruction at the level of her parastomal hernia there is no evidence of perforation or abscess, blood pressure was elevated, white count was within normal limits, labs were for the most part reasonable with the exception of a low potassium. Given her significant pain and imaging findings surgery was consulted. They feels that there is no need for emergent surgery, conservative treatment for now, they would like her admitted to the hospital, made n.p.o., IV fluids, NG tube, and repeat labs in the morning. Supportive care for now pending improvement. At present patient reports her pain is well controlled, all questions were answered, no acute concerns. Principal Diagnosis SBO Discharge Exam Constitutional WD/WN, vitals as above Respiratory normal respiratory effort, lungs clear to auscultation Cardiovascular RRR, no murmur, no edema Gastrointestinal (Abdomen) normal bowel sounds, soft, nontender, no hepatosplenomegaly Musculoskeletal no cyanosis or clubbing, extremities motor strength 5/5 Skin abdominal surgical incisions well approximated Discharge Data Allergies Allergy/AdvReac Type Severity Reaction Status Date / Time cephalexin AdvReac Intermediate Diarrhea Verified 06/17/20 09:15 pneumococcal vaccine AdvReac Intermediate Severe Verified 06/17/20 09:15 swell/redness Consultations 06/11/20 00:01 Consult General Surgery Stat 06/11/20 00:05 ED Decision to Admit Stat 06/11/20 01:39 Consult Case Management - Discharge Planning Routine Procedures Performed Operation Date: 06/13/20 09:00 Actual Procedures s Gastrostomy tube placement(Not Applicable) - Alberto Beckham MD s Closure of Colostomy, Protective Ileostomy, (Not Applicable) - Alberto Beckham MD p Exploratory Laparotomy, Lysis of Adhesions, Peristomal Hernia Repair, (Not Applicable) - Alberto Beckham MD Ordered Studies 06/10/20 21:41 CT abd pelvis IV con only Urgent Hospital Course (1) Small bowel obstruction: Patient is a 65-year-old female with a past medical history of Crohn's disease, degenerative disc disease, history of anesthesia reaction, difficulty waking, history of kidney stones, hypertension, osteoarthritis, sleep apnea,, History of cholecystectomy, recent history January 29, 2020 of an ex lap with open resection of the sigmoid colon and creation of a colostomy by Dr. Beckham, history of Niessen fundoplication with hernia repair who presents with significant abdominal pain diagnosed with a small bowel obstruction by imaging. Surgery was consulted and eventually took to surgery 06/13 for Ex-lap with lysis of adhesions, repair of peristomal hernia , closure of colostomy and protective Ileostomy, with G tube placement * 06/13/20 s/p Exploratory Laparotomy, Lysis of Adhesions, Peristomal Hernia Repair, Closure of Colostomy, Protective Ileostomy, Gastrostomy tube placement - Alberto Beckham. * Will dc with drain today per surgery * pain is controlled * Cefoxitin 2gm Q6H post-operatively now discontinued * Protonix PO 40mg BID * hold iron supplementation for now as she is having some discomfort with solid foods and this can be constipating (2) Crohn's ileocolitis: Continue home medications (3) Overactive bladder: Continue fesoterodine 8mg, mirabegron 50mg daily (4) Hypertension: * stable * Continue Amlodipine 5mg PO daily * Hydralazine prn (5) DVT prophylaxis: SCD * Ambulation encouraged * Heparin SQ Total Time Total Time Spent Total Time Spent (In Minutes): greater than 30 minutes Discharge Plan Discharge Items Patient Disposition: Home - Home Health Services Reason For Visit: SBO Discharge Diagnosis: SBO Activity: Per Instructions section Lifting: No more than 10 pounds Bathing Comment: ok to shower Driving/Machine Use: in 1 week Non-emergency contact: Surgeon Call non-emergency contact if: you have any medication questions, your pain is not controlled, you have a fever and your temperature is above 101.5 Follow-up/Referrals: Alberto Beckham MD [Surgeon] - 06/26/20 8:30 am (Please call to schedule follow up in clinic within 1 week) Dara Trejo DO [Primary Care Provider] - 06/28/20 1:30 pm (follow up one week ) Diet: Low Fiber Addtl Attending Provider Instructions: You were admitted for a small bowel obstruction and underwent an exploratory laparoscopic lysis of adhesion, parastomal hernia repair, takedown of colostomy, creation of protective of ileostomy and gastrostomy. You should eat frequent smaller meals. You can shower and reapply your dressing as needed. Do not drive or lift anything heavier than 10 pounds for about a week. You will need to have a follow up barium enema on Wednesday or to visualize the anastomosis (surgical connection of your bowel) which will be scheduled by your surgeon. Dr. Beckham's office will contact you with this appointment. Hold your iron supplementation for now as it can be constipating and hard on the belly until you have healed a bit more and are tolerating normal food. Your blood sugars were running a little above normal this admission. Please follow up with your primary care provider as to result of your HgbA1c (measure of average blood sugars over three months) Pending Studies at Discharge: Yes Studies:: a1c Stand-Alone Forms: [facility], Opioid Pain Management, Smoking Cessation Medications and DC Order Prescriptions: New oxycodone-acetaminophen [Percocet] 5-325 mg tablet 1 - 2 tab PO Q4H PRN (Reason: pain, initial therapy, max 6 daily) Qty: 15 RF: 0 Continued Toviaz 8 mg tablet extended release 24 hr 8 mg PO DAILY Qty: 90 RF: 3 desoximetasone [Topicort] 0.05 % cream 1 applic topical DAILY Qty: 60 RF: 4 mirabegron 50 mg tablet extended release 24 hr 50 mg PO DAILY Qty: 90 RF: 1 cholecalciferol (vitamin D3) 5,000 unit tablet 5,000 unit PO QAM RF: 0 amlodipine 5 mg tablet 5 mg PO QAM RF: 0 multivitamin tablet 1 tab PO QAM RF: 0 pantoprazole 40 mg tablet,delayed release (DR/EC) 40 mg PO BID Qty: 60 RF: 0 folic acid 1 mg tablet 1 mg PO QAM Qty: 30 RF: 0 methylprednisolone [Medrol (Darrell)] 4 mg tablets,dose pack See Rx Instructions .ROUTE .COMPLEX Qty: 21 RF: 0 nystatin 100,000 unit/gram powder 1 applic topical BID Qty: 60 RF: 1 cholestyramine (with sugar) 4 gram powder in packet 4 g PO QAM RF: 0 valacyclovir [Valtrex] 500 mg Tablet 1,000 mg PO UD PRN (Reason: Cold Sores) RF: 0 Calcium 600 + D(3) 600 mg calcium- 200 unit Capsule 1 cap PO BID RF: 0 cranberry extract-vitamin C 250-60 mg Capsule 1 cap PO QAM RF: 0 clobetasol 0.05 % solution 1 applic TOPICAL BID RF: 0 Discontinued ferrous sulfate 325 mg (65 mg iron) tablet 325 mg PO QAM RF: 0 hydrocodone-acetaminophen 5-325 mg tablet 1 tab PO DAILY PRN (Reason: Pain) RF: 0 Discharge Orders: Discharge Order (Routine); Ordered 06/19/20 Ordered By: Jaqui France/Other Patient Handouts: Discharge Instructions for Ileostomy Admission Data Admit Date/Time: 06/11/20 01:36 Attending Provider: Lakhwinder Hsieh Admit Provider: Gustavo Lagos I. Primary Care Provider: Dara Trejo Other Providers: Francisco Gómez ; Best Escudero Other Interventions: Discharge Summary Assessment (RN) Last Done: 06/19/20 11:10 Supervising Physician Co-Signing Physician Notes I personally examined the patient and verified all [place] points of history and exam, discussed case, and agree with decision making with Rui VILLALOBOS. feeling better and up to going home. surgery input appreciated. vitals noted nad heent nc at mmm breathing unlabored no accessory muscles good effort sbo - stable for home, otherwise as above. discussed f/u w surgery and PCP Coding Level of Care Code D/C Day Management >30 mins Diagnoses Small bowel obstruction K56.609 Crohn's ileocolitis K50.80 Overactive bladder N32.81 Hypertension I10 DVT prophylaxis Z29.9
[2020-06-19 12:54] LABS: Estimated Average Glucose 108 mg/dl; Hemoglobin A1C 5.4 % (4.5-5.6)
== END 2020-06-19 13:40 | disposition home health service (06) | DRG 330 ==
LOC: ED 21:05 → 3N 06-11 01:36 → SUATTDRO 06-11 01:36 → 3N 06-11 02:36

== ENCOUNTER 2020-08-06 09:43 | Inpatient (IN) ==
--- NOTE | 2020-07-31 10:49 | Anesthesiology Progress Note ---
Date of Service July 31, 2020 Subjective Medical Necessity Statement: Patient scheduled for upcoming Open Closure of Ileostomy on 08/06. Per surgeon's office visit note (07/29/20): "At this time I recommended Audrey to proceed with closure of ileostomy further delay of this would cause her more harm because of the significant irritation that she has around the ileostomy site.. We will try to expedite this with the PAT making note that this is medically necessary and delayed will cause further harm to the patient" Case reviewed by Dr. Diane and tuan to proceed with surgery as scheduled.
--- NOTE | 2020-07-31 13:13 | Anesthesiology Consultation ---
Date of Service July 31, 2020 Assessment & Plan (1) Encounter for pre-operative examination: Chart Review Chart Review: Acceptable Risk for Surgery (pending preop Covid testing ) and Patient NOT seen in Pre Admission Testing - Pt's creatinine did increase from 0.84 in 06/19/20 to 1.44 on 07/31/20 preop labs. Medical Necessity Statement: Patient scheduled for upcoming Open Closure of Ileostomy on 08/06. Per surgeon's office visit note (07/29/20): "At this time I recommended Audrey to proceed with closure of ileostomy further delay of this would cause her more harm because of the significant irritation that she has around the ileostomy site.. We will try to expedite this with the PAT making note that this is medically necessary and delayed will cause further harm to the patient" Case reviewed by Dr. Diane and tuan to proceed with surgery as scheduled. Per nursing assessment 07/31/20, patient denies any recent travel. No known Covid positive contacts or Covid related symptoms. No hx of Covid in the past 90 days. Covid test 07/31/20= results pending Ex laparotomy, lysis of adhesions, parasternal hernia repair, reverse colostomy, G tube placement, ileostomy 06/13/20= Done under GA with Grade 1 view with Glidescope #3. ETT 7.0. NGT attempted with surgeon guidance. Advanced to 55cm, surgeon not able to feel. Decision made to place G tube. History Surgery Operation Date: 08/06/20 09:40 Proposed Procedures p Open Closure of Ileostomy - Alberto Beckham MD Height/Weight Height: 5 ft Weight: 63.503 kg Allergies Allergy/AdvReac Type Severity Reaction Status Date / Time amoxicillin AdvReac Intermediate Diarrhea Verified 07/31/20 12:14 cephalexin AdvReac Intermediate Diarrhea Verified 07/31/20 12:13 pneumococcal vaccine AdvReac Intermediate Severe Verified 07/31/20 12:13 swell/redness Medications Home Medications Medication Instructions Recorded Confirmed Last Taken amlodipine 5 mg tablet 5 mg PO QAM tab 03/21/19 07/31/20 12/23/19 cholecalciferol (vitamin D3) 125 5,000 unit PO QAM tab 03/21/19 07/31/20 12/23/19 mcg (5,000 unit) tablet folic acid 1 mg tablet 1 mg PO QAM #30 tab 03/21/19 07/31/20 12/23/19 multivitamin 1 tab PO QAM 03/21/19 07/31/20 12/23/19 pantoprazole 40 mg tablet,delayed 40 mg PO BID #60 tab 03/21/19 07/31/20 12/23/19 release Calcium 600 + D(3) 1 cap PO BID 12/13/19 07/31/20 12/23/19 cholestyramine (with sugar) 4 g PO QAM 12/13/19 07/31/20 12/23/19 cranberry extract-vitamin C 1 cap PO QAM 12/13/19 07/31/20 12/23/19 valacyclovir [Valtrex] 1,000 mg PO UD PRN 12/13/19 07/31/20 12/23/19 fesoterodine 8 mg tablet,extended 8 mg PO DAILY #90 tab 04/15/20 07/31/20 Unknown release 24 hr desoximetasone 0.05 % topical cream 1 applic TOPICAL DAILY #60 g 05/24/20 07/31/20 Unknown mirabegron 50 mg tablet,extended 50 mg PO DAILY #90 tab 05/27/20 07/31/20 Unknown release 24 hr methylprednisolone 4 mg tablets in See Rx Instructions .ROUTE 07/23/20 07/31/20 Unknown a dose pack .COMPLEX #21 ea hydrocodone-acetaminophen 1 tab PO BID PRN 07/31/20 07/31/20 Unknown ibuprofen 400 mg PO TID PRN 07/31/20 07/31/20 Unknown Past Medical History Medical History Crohns disease Degenerative disc disease GERD without esophagitis History of anesthesia reaction difficulty waking History of kidney stones Hypertension Ileostomy present HAS HAS SINCE JUN 13 2020 Osteoarthritis Overactive bladder Sleep apnea USES CPAP Past Family History Family History Sister Family history of diabetes mellitus Other No family history of adverse response to anesthesia Past Surgical History Surgical History (Updated 07/31/20 @ 13:33 by Aimee Caldera PA-C) H/O exploratory laparotomy (06/13/20) Exploratory Laparotomy, Lysis of Adhesions, Peristomal Hernia Repair, Closure of Colostomy, Protective Ileostomy, Gastrostomy tube placement Dr. Beckham 06/13/2020 History of bilateral cataract extraction History of bilateral tubal ligation History of cholecystectomy History of colon resection (01/29/20) Secondary to perforated diverticulum. Exploratory Laparotomy; open Resection of Sigmoid Colon; creation of colostomy Dr. Beckham 01/29/20> colostomy since reversed in Jun 2020 History of colonoscopy with polypectomy History of cystoscopy History of nasal cauterization History of Staci fundoplication with hernia repair History of total vaginal hysterectomy S/P Botox injection TO BLADDER Status post trigger finger release right hand Social History Smoking Status: Never smoker Do You Dip or Chew Tobacco: No Hx Alcohol Use: No Hx Substance Use: No substance use type: does not use Testing Laboratory Results Laboratory Tests 06/10/20 06/19/20 07/31/20 21:23 10:58 10:04 WBC 5.73 Hgb 11.7 L Hct 36.3 L Plt Count 330 PT 10.4 INR 1.0 APTT 33.3 H Sodium Potassium Chloride Carbon Dioxide BUN Creatinine Glucose Hemoglobin A1c 5.4 07/31/20 10:04 WBC Hgb Hct Plt Count PT INR APTT Sodium 138 Potassium 3.8 Chloride 112 H Carbon Dioxide 17 L BUN 32 H Creatinine 1.44 H Glucose 99 Hemoglobin A1c Electrocardiogram Date: 06/10/20 Findings: + NSR @ (at 79) and + LVH (Minimal voltage criteria, may be normal variant ) Chest X-Ray Date: 06/11/20 Findings: + NAD and + other (NG tube is looped within distal esophagus/hiatal hernia w/tip extending to mid esophagus) XR abdomen 2 view with PA chest 06/12/20= Shows mild CM. Linear subsegmental bibasilar densities suggest atelectasis/scarring. No pneumothorax, pleural effusion, airspace consolidation or overt pulmonary edema.
[~2020-08-06 09:43] MED LIST changes: -AMLO-110 PO; -CALC1CHW57 PO; -CHOL1TAB46 PO; -CHOL4POW11 PO; -DTR/5 PO; -FERR325T5 PO; -FOLI1TAB7 PO; -HYDR-4330 PO; -IBUP-1050 PO; -LIDOCAINE HCL 2% 2 ML VIAL (20MG/ML) ONE; +LR 15ML/HR IV SCH; -MIDAZOLAM HCL 1 MG/ML 2ML VIAL ONE; -MULT-506 PO; -ONDANSETRON INJ 2 MG/ML 2 ML VIAL ONE; -OXYB10TA13 PO; -PANT40TA PO; -PROPOFOL IV EMULSION 10 MG/ML 20 ML VIAL IV ONE; -RMCI; -SODIUM CHLORIDE 0.9% 500ML 500 ML IV ONE; +ePHEDrine sulfate 50 MG/ML SYR ONE
[2020-08-06] MEDS ORDERED: NALOXONE HCL 0.4 MG/1 ML VIAL/CARP IV PRN (10:59)
[2020-08-06] MEDS ORDERED: FLUMAZENIL 0.1 MG/1 ML 10 ML VIAL IV PRN (10:59)
[2020-08-06] MEDS ORDERED: LABETALOL HCL IV 5 MG/ML 20ML IV PRN (10:59)
[2020-08-06] MEDS ORDERED: ePHEDrine sulfate 50 MG/ML AMP IV PRN (10:59)
[2020-08-06] MEDS ORDERED: ONDANSETRON INJ 2 MG/ML 2 ML VIAL IV PRN (10:59)
[2020-08-06] MEDS ORDERED: PROMETHAZINE HCL 12.5 MG in SODIUM CHLORIDE 0.9% 50 ML IV PRN (10:59)
[2020-08-06] MEDS ORDERED: ATROPINE SULFATE 0.1 MG/ML 10ML SYR IV PRN (10:59)
[2020-08-06] MEDS ORDERED: PROPOFOL IV EMULSION 10 MG/ML 20 ML VIAL IV ONE (11:46)
[2020-08-06] MEDS ORDERED: MIDAZOLAM HCL 1 MG/ML 2ML VIAL ONE (11:46)
[2020-08-06] MEDS ORDERED: fentaNYL citrate 100 MCG/2 ML VIAL ONE ×2 (11:46→13:49)
[2020-08-06] MEDS ORDERED: ONDANSETRON INJ 2 MG/ML 2 ML VIAL ONE ×2 (11:46→13:21)
--- NOTE | 2020-08-06 12:30 | History & Physical Bridge Note ---
Date of Service August 06, 2020 History & Physical Bridge Note I have examined the patient, reviewed the History & Physical and in the interval since the performance of the History & Physical I have noted the following changes of clinical significance: no changes noted ileostomy with liquid output all question answered
[2020-08-06] MEDS ORDERED: SUCCINYLCHOLINE 100MG/5ML SYR IV ONE (12:36)
[2020-08-06] MEDS ORDERED: PHENYLEPHRINE 100MCG/ML 5ML SYR ONE (13:21)
--- NOTE | 2020-08-06 14:03 | Post Operative Brief Note ---
PG Immediate Post Op with CF Date of Surgery August 06, 2020 Pre & Post Diagnosis Operation Date: 08/06/20 11:15 Pre-Op Diagnosis: Ileostomy in Place; Small Bowel Obstruction Post-Op Diagnosis: Ileostomy in Place; Small Bowel Obstruction I identified the patient and participated in the time-out.: Yes Procedure Operation Date: 08/06/20 11:15 Actual Procedures p Closure of Ileostomy and Resection portion of ileum(Not Applicable) - Alberto Beckham MD Surgeon Alberto Beckham MD [employer] Installer b keke tovar Estimated Blood Loss 15 Findings Consistent with Post-Op Diagnosis Specimens Specimen Description: A. Portion of ileum
--- NOTE | 2020-08-06 14:15 | Operative Report ---
PG Post Operative Report Pre & Post Diagnosis Operation Date: 08/06/20 11:15 Pre-Op Diagnosis: Ileostomy in Place; Small Bowel Obstruction Post-Op Diagnosis: Ileostomy in Place; Small Bowel Obstruction I identified the patient and participated in the time-out.: Yes Procedure Operation Date: 08/06/20 11:15 Actual Procedures p Closure of Ileostomy and Resection portion of ileum(Not Applicable) - Alberto Beckham MD The patient was brought into the operating room theater supine position the back was removed around the ileostomy which was liquid intestinal contents the abdomen will be prepped Betadine solution properly draped the patient was under general anesthesia systemic antibiotics on board a timeout was had patient was identified this point using the knife we made an elliptical incision around the ileostomy transversely deepened to subcutaneous tissue which she had very the adhesions do the Remicade was but we were able to dissect out bluntly a few areas we were able to cauterize we brought out the ileostomy to the point that we were able then to undermine the anterior rectus fascia and posteriorly placing a finger in the abdomen we were completely free of any adhesions this point a bowel clamp was placed proximal to the ileostomy opening controlling both lumens of the small bowel we then resected about an inch and a half of ileum and both barrels of the ileostomy the mesentery was closed with interrupted 3-0 silk as we saw some bleeders we then end-to-end anastomosis handsewn using 3-0 silk outer layer 3-0 chromic for inner layer when this was completed we were able to check for the lumen with 2 fingers repalpated the doughnut there was no mesentery related to close at this point we were able to identify the posterior rectus sheath which were closed independently with a #1 Vicryl continuous fashion and we closed the anterior rectus sheath was simply running sutures of #1 Vicryl the wound was packed with plain quarter inch gauze some nylon sutures used to hold the gauze in place the procedure was tolerated well by the patient estimated blood loss approximately 10 cc patient was taken recovery in good condition addendMahsa tovar was present throughout the procedure and helped the retraction exposure and wound closure Surgeon Alberto Beckham MD [employer] efra tovar Estimated Blood Loss 15 Findings Consistent with Post-Op Diagnosis Specimens portion small bowel ( ileostomy) Description of Procedure merda I attest to the content of the Intraoperative Record and any orders documented therein. Any exceptions are noted below.
--- NOTE | 2020-08-06 14:58 | Anesthesiology Progress Note ---
Date of Service August 06, 2020 Anesthesia Post Procedure Vital Signs Vital Signs: Temp Pulse Pulse Resp BP Pulse Ox 08/06/20 14:55 37.1 C 85 18 120/73 96 08/06/20 14:45 37.1 C 84 16 125/72 96 08/06/20 14:35 88 21 111/70 96 08/06/20 14:25 88 16 126/75 97 08/06/20 14:16 36.5 C 90 15 137/81 98 08/06/20 10:01 36.7 C 106 H 22 108/76 99 Transfer of Care Handoff Completed per policy Notes Mental Status: alert / awake / arousable Patient Amnestic to Procedure: Yes Nausea / Vomiting: adequately controlled Pain: adequately controlled Airway Patency, RR, SpO2: stable & adequate BP & HR: stable & adequate Hydration State: stable & adequate Anesthetic Complications: no major complications apparent
[2020-08-06] MEDS: fentaNYL citrate 100 MCG/2 ML VIAL IV PRN ×4 (15:04→15:20)
[2020-08-06] MEDS: LACTATED RINGER'S 1,000 ML IV SCH ×2 (16:56→23:47)
[2020-08-06] MEDS: MoRPHine SULFATE 2 MG/ML CARP IV PRN ×2 (17:03→18:35)
[2020-08-06] MEDS ORDERED: cefOXitin 2,000 MG in DEXTROSE 5% 50 ML IV ONE (19:00)
[2020-08-06] MEDS: MoRPHine SULFATE 4 MG/ML 1 ML CARP\\VIAL IV PRN ×3 (20:03→23:47)
[2020-08-06] MEDS: PANTOprazole 40 MG TAB PO SCH (20:05)
[2020-08-06] MEDS: ONDANSETRON INJ 2 MG/ML 2 ML VIAL IV PRN (21:29)
[2020-08-07] MEDS: MoRPHine SULFATE 2 MG/ML CARP IV PRN (01:20)
[2020-08-07] MEDS: MoRPHine SULFATE 4 MG/ML 1 ML CARP\\VIAL IV PRN ×6 (05:36→23:18)
[2020-08-07 07:30] LABS: Basophils # (auto) 0.01 K/uL (0-0.2); Basophils % (auto) 0.1 %; Eosinophils # (auto) 0.13 K/uL (0-0.5); Eosinophils % (auto) 1.9 %; Hemoglobin 10.2 g/dL (12.0-16.0); Immature Granulocytes # (auto) 0.02 K/uL (0.00-0.02); Immature Granulocytes % (auto) 0.3 %; Lymphocytes # (auto) 0.43 K/uL (1.2-3.4); Lymphocytes % (auto) 6.2 %; Mean Corpuscular Hemoglobin 29.1 pg (25-34); Mean Corpuscular Hgb Conc 32.9 g/dL (32-36); Mean Corpuscular Volume 88.6 fL (80-100); Mean Platelet Volume 8.6 fL (7.4-10.4); Monocytes # (auto) 0.89 K/uL (0.11-0.59); Monocytes % (auto) 12.9 %; Neutrophils # (auto) 5.41 K/uL (1.4-6.5); Neutrophils % (auto) 78.6 %; Platelet Count 231 K/uL (130-400); RDW Coefficient of Variation 14.5 % (11.5-14.5); RDW Standard Deviation 47.4 fL (36.4-46.3); White Blood Count 6.89 K/uL (4.8-10.8)
[2020-08-07 08:07] LABS: BUN Creatinine Ratio 10.2 (10-20); Calcium 8.2 mg/dl (8.5-10.1); Creatinine Clr Calc Pharmacy 31.1 ml/min; Est GFR (African American) 42.3; Est GFR (Non-African American) 36.5; Potassium 3.9 mmol/L (3.5-5.1)
[2020-08-07] MEDS: LACTATED RINGER'S 1,000 ML IV SCH ×3 (08:08→21:51)
[2020-08-07] MEDS: amLODIPine BESYLATE 5 MG TAB PO SCH (08:10)
[2020-08-07] MEDS: PANTOprazole 40 MG TAB PO SCH ×2 (08:11→20:45)
[2020-08-07] MEDS: ONDANSETRON INJ 2 MG/ML 2 ML VIAL IV PRN (08:13)
--- NOTE | 2020-08-07 09:16 | Surgery Progress Note ---
Date of Service August 07, 2020 Assessment & Plan (1) Ileostomy in place: POD 1 ileostomy closure UOP marginal, can start clears and increase IVF to 150 ambulate Admission and Anticipated Discharge Date Admission Date: August 06, 2020 Subjective few dry heaves, pain controlled Physical Exam Gastrointestinal (Abdomen): Inspection/Auscultation: + abdominal surgical incision (dressing dry); abdomen not distended Percussion/Palpation: abdomen soft Results & Data ([facility]) Vital Signs (Past 12 Hours) Vital Signs Temp Pulse Resp BP BP Pulse Ox 08/07/20 07:42 37.0 C 95 H 18 109/70 90 08/07/20 03:45 36.5 C 95 H 14 107/67 93 08/06/20 23:41 36.7 C 92 H 14 106/65 95 PG Care Time/CCT Total # of Minutes Spent Total Time Spent with Patient: Total time spent is greater than 50% in coordination of care (as documented) at patient's floor/unit and/or counseling patient: Coding Level of Care Code None Diagnoses Ileostomy in place Z93.2
[2020-08-07] MEDS: HEPARIN SOD 5,000 UNIT/0.5 ML VIAL SQ SCH ×2 (09:59→20:45)
[2020-08-07] MEDS ORDERED: diphenhydrAMINE Capsule 25 MG CAP PO ONE (12:45)
[2020-08-07] MEDS: ACETAMINOPHEN 500 MG TAB PO PRN (19:50)
[2020-08-08] MEDS: MoRPHine SULFATE 4 MG/ML 1 ML CARP\\VIAL IV PRN ×5 (03:00→23:16)
[2020-08-08] MEDS: LACTATED RINGER'S 1,000 ML IV SCH ×3 (04:06→21:24)
[2020-08-08 06:54] LABS: Basophils # (auto) 0.01 K/uL (0-0.2); Basophils % (auto) 0.1 %; Eosinophils # (auto) 0.13 K/uL (0-0.5); Eosinophils % (auto) 1.8 %; Hematocrit (blood only) 30.6 % (37-47); Hemoglobin 9.9 g/dL (12.0-16.0); Immature Granulocytes # (auto) 0.02 K/uL (0.00-0.02); Immature Granulocytes % (auto) 0.3 %; Lymphocytes # (auto) 0.65 K/uL (1.2-3.4); Lymphocytes % (auto) 9.1 %; Mean Corpuscular Hemoglobin 28.9 pg (25-34); Mean Corpuscular Hgb Conc 32.4 g/dL (32-36); Mean Corpuscular Volume 89.5 fL (80-100); Mean Platelet Volume 9.2 fL (7.4-10.4); Monocytes # (auto) 0.74 K/uL (0.11-0.59); Monocytes % (auto) 10.4 %; Neutrophils # (auto) 5.56 K/uL (1.4-6.5); Neutrophils % (auto) 78.3 %; Platelet Count 212 K/uL (130-400); RDW Coefficient of Variation 14.7 % (11.5-14.5); RDW Standard Deviation 48.4 fL (36.4-46.3); Red Blood Count 3.42 M/uL (4.2-5.4); White Blood Count 7.11 K/uL (4.8-10.8)
[2020-08-08 07:23] LABS: BUN Creatinine Ratio 7.7 (10-20); Creatinine Clr Calc Pharmacy 38.6 ml/min; Est GFR (African American) 54.9; Est GFR (Non-African American) 47.4; Potassium 3.4 mmol/L (3.5-5.1)
--- NOTE | 2020-08-08 07:28 | Surgery Progress Note ---
Date of Service August 08, 2020 Assessment & Plan (1) Ileostomy in place: POD#2 ileostomy closure UOP improving as well as BUN/Cr, will decrease IVF Continue on clear liquid diet for today Add ativan prn anxiety and benadryl prn itching Abdominal packing removed and dressing changed at bedside; cover with dry 4x4 gauze and medipore tape Encourage ongoing ambulation today Pt seen and examined with Dr. Beckham Admission and Anticipated Discharge Date Admission Date: August 06, 2020 Subjective Patient says she is feeling a little rough this AM, but overall better. She has been tolerating some clear liquids without vomiting. Having some neck pain and kaya-incisional pain. Physical Exam Physical Exam: awake/alert Respiratory: normal respiratory effort Gastrointestinal (Abdomen): Inspection/Auscultation: + abdomen distended and + abdominal surgical incision (clean/intact) Percussion/Palpation: + abdomen tender (kaya-incisional ttp) and abdomen soft Results & Data ([facility]) Vital Signs (Past 12 Hours) Vital Signs Temp Pulse Resp BP BP Pulse Ox 08/08/20 07:00 37.0 C 97 H 16 111/67 91 08/08/20 02:45 37.2 C 08/07/20 22:22 37.5 C 08/07/20 22:05 37.4 C 94 H 18 103/63 92 08/07/20 20:40 37.4 C 08/07/20 19:50 38.1 C H PG Care Time/CCT Total # of Minutes Spent Total Time Spent with Patient: Total time spent is greater than 50% in coordination of care (as documented) at patient's floor/unit and/or counseling patient: Coding Level of Care Code None Diagnoses Ileostomy in place Z93.2
[2020-08-08] MEDS ORDERED: diphenhydrAMINE Capsule 25 MG CAP PO PRN (07:50)
[2020-08-08] MEDS: HEPARIN SOD 5,000 UNIT/0.5 ML VIAL SQ SCH ×2 (08:15→20:45)
[2020-08-08] MEDS: amLODIPine BESYLATE 5 MG TAB PO SCH (08:15)
[2020-08-08] MEDS: PANTOprazole 40 MG TAB PO SCH ×2 (08:16→20:45)
[2020-08-08] MEDS: LORazepam 1 MG TAB PO PRN ×2 (08:19→21:31)
[2020-08-08] MEDS: POTASSIUM CHLORIDE / WTR 10 MEQ/100 ML PLCT IV SCH ×3 (08:47→16:30)
[2020-08-08] MEDS: ONDANSETRON INJ 2 MG/ML 2 ML VIAL IV PRN (20:09)
[2020-08-09] MEDS: MoRPHine SULFATE 4 MG/ML 1 ML CARP\\VIAL IV PRN ×3 (04:15→20:45)
[2020-08-09 07:18] LABS: Basophils # (auto) 0.01 K/uL (0-0.2); Basophils % (auto) 0.2 %; Eosinophils # (auto) 0.14 K/uL (0-0.5); Eosinophils % (auto) 2.5 %; Hemoglobin 9.7 g/dL (12.0-16.0); Immature Granulocytes # (auto) 0.01 K/uL (0.00-0.02); Immature Granulocytes % (auto) 0.2 %; Lymphocytes # (auto) 0.58 K/uL (1.2-3.4); Lymphocytes % (auto) 10.3 %; Mean Corpuscular Hemoglobin 28.8 pg (25-34); Mean Corpuscular Hgb Conc 32.3 g/dL (32-36); Mean Platelet Volume 9.1 fL (7.4-10.4); Monocytes # (auto) 0.57 K/uL (0.11-0.59); Monocytes % (auto) 10.1 %; Neutrophils # (auto) 4.32 K/uL (1.4-6.5); Neutrophils % (auto) 76.7 %; Platelet Count 218 K/uL (130-400); RDW Coefficient of Variation 14.6 % (11.5-14.5); RDW Standard Deviation 47.7 fL (36.4-46.3); Red Blood Count 3.37 M/uL (4.2-5.4); White Blood Count 5.63 K/uL (4.8-10.8)
[2020-08-09] MEDS: PANTOprazole 40 MG TAB PO SCH ×2 (07:49→20:46)
[2020-08-09] MEDS: LACTATED RINGER'S 1,000 ML IV SCH (07:49)
[2020-08-09] MEDS: amLODIPine BESYLATE 5 MG TAB PO SCH (07:49)
[2020-08-09] MEDS: HEPARIN SOD 5,000 UNIT/0.5 ML VIAL SQ SCH ×2 (07:50→20:46)
[2020-08-09 07:55] LABS: BUN Creatinine Ratio 5.3 (10-20); Calcium 8.1 mg/dl (8.5-10.1); Creatinine Clr Calc Pharmacy 44.1 ml/min; Est GFR (African American) 64.5; Est GFR (Non-African American) 55.7; Potassium 3.3 mmol/L (3.5-5.1)
--- NOTE | 2020-08-09 08:01 | Surgery Progress Note ---
Date of Service August 09, 2020 Assessment & Plan (1) Ileostomy in place: POD#3 closure of ileostomy WBC 5.6 and patient afebrile Will add K in IVF Still having some dry heaves Continue clears for now as tolerates Abdominal dressing changed today at bedside Encourage ongoing ambulation Awaiting return of bowel function Admission and Anticipated Discharge Date Admission Date: August 06, 2020 Supervising Physician Co-Signing Physician Notes will leave Gastrostomy tube open for now, hold oral intake with exception of occ sip of water or carbonated liquid correct K lab noted abd exam distended generalized guarding Dr Milligan covering weekend Subjective Patient states in some ways she is feeling better, in other ways she is not. Her g-tube is to gravity this AM she says because she was up having dry-heaves yesterday pm, no emesis. Despite this she says she is doing okay with clear li quids. She is unsure if she is passing flatus. No BM yet. Still having some abdominal pain. Physical Exam Physical Exam: awake/alert Respiratory: normal respiratory effort Gastrointestinal (Abdomen): Inspection/Auscultation: + abdomen distended and + abdominal surgical incision (RLQ packing changed. Has an area that appears like a skin tear in L abdomen) Percussion/Palpation: + abdomen tender (ttp kaya- incisionally) g-tube to gravity Results & Data ([facility]) Vital Signs (Past 12 Hours) Vital Signs Temp Pulse Resp BP Pulse Ox 08/09/20 07:04 36.7 C 92 H 16 111/68 90 08/08/20 22:53 37.2 C 95 H 16 100/60 94 PG Care Time/CCT Total # of Minutes Spent Total Time Spent with Patient: Total time spent is greater than 50% in coordination of care (as documented) at patient's floor/unit and/or counseling patient: Coding Level of Care Code 65252 Subseq Hosp Care Lvl [address] Z93.2
[2020-08-09] MEDS ORDERED: SODIUM CHLOR 0.45% + 20MEQ KCL 20 MEQ/1,000 ML BAG IV SCH (08:15)
[2020-08-09] MEDS: ONDANSETRON INJ 2 MG/ML 2 ML VIAL IV PRN ×2 (08:23→20:45)
[2020-08-09] MEDS ORDERED: PROMETHAZINE HCL 12.5 MG in SODIUM CHLORIDE 0.9% 50 ML IV STA (11:09)
[2020-08-09] MEDS: LORazepam 1 MG/2 ML VIAL IV PRN ×2 (13:06→21:26)
[2020-08-09] MEDS: D5W AND 1/2NSS + 20MEQ KCL 20 MEQ/1,000 ML BAG IV SCH (15:33)
[2020-08-10] MEDS: D5W AND 1/2NSS + 20MEQ KCL 20 MEQ/1,000 ML BAG IV SCH ×3 (00:41→21:55)
[2020-08-10] MEDS: MoRPHine SULFATE 4 MG/ML 1 ML CARP\\VIAL IV PRN ×3 (01:56→23:18)
[2020-08-10] MEDS: ONDANSETRON INJ 2 MG/ML 2 ML VIAL IV PRN ×4 (01:56→23:26)
--- NOTE | 2020-08-10 05:39 | Surgery Progress Note ---
Date of Service August 10, 2020 Assessment & Plan (1) Status post reversal of ileostomy: We will not advance the patient's diet until she has improved bowel function Continue pain control measures Patient does have a G-tube in place and if she has persistent nausea vomiting this can be placed to suction As patient notes she is unsteady with ambulation we will request PT and OT evaluations Discharge will depend on the ability to advance her diet Dr. Milligan-patient is awake and alert in her bed. Her gastrostomy tube is to gravity-expected output She is in no distress-she is walking to the bathroom but not yet in the hallway We will continue to limit her p.o. intake today possibly advance tomorrow. We will check her laboratories this a.m. She does say that she feels better than yesterday. Admission and Anticipated Discharge Date Admission Date: August 06, 2020 Subjective Patient notes abdominal pain from her recent surgery. She reports an episode of nausea and vomiting last night but this is resolved. Since her surgery she says she has not had a bowel movement as of yet and has not passed much flatus. She notes she is ambulated only short distances to the restroom and feels somewhat unsteady when she does so. Physical Exam Constitutional: well developed and well nourished; no acute distress Respiratory: normal respiratory effort; no respiratory distress and no labored breathing Gastrointestinal (Abdomen): Percussion/Palpation: + abdomen tender and abdomen soft Results & Data ([facility]) Vital Signs (Past 12 Hours) Vital Signs Temp Pulse Pulse Resp BP Pulse Ox 08/10/20 00:40 93 H 16 95 08/09/20 23:25 20 88 L 08/09/20 23:13 37.2 C 95 H 16 119/78 92 PG Care Time/CCT Total # of Minutes Spent Total Time Spent with Patient: Total time spent is greater than 50% in coordination of care (as documented) at patient's floor/unit and/or counseling patient: Coding Level of Care Code None Diagnoses Status post reversal of ileostomy Z98.890
[2020-08-10 06:10] LABS: Basophils # (auto) 0.01 K/uL (0-0.2); Basophils % (auto) 0.2 %; Eosinophils # (auto) 0.15 K/uL (0-0.5); Eosinophils % (auto) 2.8 %; Hematocrit (blood only) 29.2 % (37-47); Hemoglobin 9.4 g/dL (12.0-16.0); Immature Granulocytes # (auto) 0.01 K/uL (0.00-0.02); Immature Granulocytes % (auto) 0.2 %; Lymphocytes # (auto) 0.78 K/uL (1.2-3.4); Lymphocytes % (auto) 14.3 %; Mean Corpuscular Hemoglobin 28.9 pg (25-34); Mean Corpuscular Hgb Conc 32.2 g/dL (32-36); Mean Corpuscular Volume 89.8 fL (80-100); Monocytes # (auto) 0.63 K/uL (0.11-0.59); Monocytes % (auto) 11.6 %; Neutrophils # (auto) 3.87 K/uL (1.4-6.5); Neutrophils % (auto) 70.9 %; Platelet Count 228 K/uL (130-400); RDW Coefficient of Variation 14.3 % (11.5-14.5); RDW Standard Deviation 47.6 fL (36.4-46.3); Red Blood Count 3.25 M/uL (4.2-5.4); White Blood Count 5.45 K/uL (4.8-10.8)
[2020-08-10 06:35] LABS: BUN Creatinine Ratio 3.6 (10-20); Calcium 7.6 mg/dl (8.5-10.1); Creatinine Clr Calc Pharmacy 42.1 ml/min; Est GFR (Non-African American) 52.6; Potassium 3.5 mmol/L (3.5-5.1)
[2020-08-10] MEDS: PANTOprazole 40 MG TAB PO SCH ×2 (08:52→20:22)
[2020-08-10] MEDS: amLODIPine BESYLATE 5 MG TAB PO SCH (08:52)
[2020-08-10] MEDS: HEPARIN SOD 5,000 UNIT/0.5 ML VIAL SQ SCH ×2 (08:53→20:22)
--- NOTE | 2020-08-10 11:46 | Hospitalist Consultation ---
Date of Consultation August 10, 2020 History of Present Illness Attending Physician: Lars Li DO Allergies Allergy/AdvReac Type Severity Reaction Status Date / Time amoxicillin AdvReac Intermediate Diarrhea Verified 08/06/20 09:52 cephalexin AdvReac Intermediate Diarrhea Verified 08/06/20 09:52 pneumococcal vaccine AdvReac Intermediate Severe Verified 08/06/20 09:52 swell/redness Home Medications Medication Instructions Recorded Confirmed Type amlodipine 5 mg tablet 5 mg PO QAM tab 03/21/19 08/06/20 History cholecalciferol (vitamin D3) 125 5,000 unit PO QAM tab 03/21/19 08/06/20 History mcg (5,000 unit) tablet folic acid 1 mg tablet 1 mg PO QAM #30 tab 03/21/19 08/06/20 History multivitamin 1 tab PO QAM 03/21/19 08/06/20 History pantoprazole 40 mg tablet,delayed 40 mg PO BID #60 tab 03/21/19 08/06/20 History release Calcium 600 + D(3) 1 cap PO BID 12/13/19 08/06/20 History cholestyramine (with sugar) 4 g PO QAM 12/13/19 08/06/20 History cranberry extract-vitamin C 1 cap PO QAM 12/13/19 08/06/20 History valacyclovir [Valtrex] 1,000 mg PO UD PRN 12/13/19 08/06/20 History hydrocodone-acetaminophen 1 tab PO BID PRN 07/31/20 08/06/20 History ibuprofen 400 mg PO TID PRN 07/31/20 08/06/20 History bisacodyl 10 mg PO DIRECTED 08/06/20 08/06/20 History erythromycin 1,000 mg PO DIRECTED 08/06/20 08/06/20 History neomycin 1 g PO DIRECTED 08/06/20 08/06/20 History Patient History Medical History Crohns disease Degenerative disc disease GERD without esophagitis History of kidney stones Hypertension Ileostomy present HAS HAS SINCE JUN 13 2020 Osteoarthritis Overactive bladder Sleep apnea USES CPAP Surgical History (Updated 08/10/20 @ 05:38 by Ciro Infante PA-C) H/O exploratory laparotomy (06/13/20) Exploratory Laparotomy, Lysis of Adhesions, Peristomal Hernia Repair, Closure of Colostomy, Protective Ileostomy, Gastrostomy tube placement Dr. Beckham 06/13/2020 History of anesthesia reaction difficulty waking History of bilateral cataract extraction History of bilateral tubal ligation History of cholecystectomy History of closure of ileostomy (08/06/20) Closure of Ileostomy and Resection portion of ileum Dr. Beckham 08/06/20 History of colon resection (01/29/20) Secondary to perforated diverticulum. Exploratory Laparotomy; open Resection of Sigmoid Colon; creation of colostomy Dr. Beckham 01/29/20> colostomy since reversed in Jun 2020 History of colonoscopy with polypectomy History of cystoscopy History of nasal cauterization History of Staci fundoplication with hernia repair History of total vaginal hysterectomy S/P Botox injection TO BLADDER Status post trigger finger release right hand Family History Sister Family history of diabetes mellitus Other No family history of adverse response to anesthesia Social History Smoking Status: Never smoker Second Hand Exposure: No; Do You Dip or Chew Tobacco: No; Tobacco Cessation Education Requested by Patient: No Hx Alcohol Use: No Hx Substance Use: No Preferred Language: Tamazight Communication Ability: Effective Visual Impairment: No Limitations 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 Beliefs That Will Affect Care: None marital status: Current Living Situation: Spouse Other Information That Helps Us Care for You: No Feels Safe at Home: Yes Safety Concerns: Feels Safe At This Time Assistive Devices: None Results & Data Results & Data ([facility]) Vital Signs (Past 12 Hours) Vital Signs Temp Pulse Pulse Resp BP Pulse Ox 08/10/20 07:12 36.7 C 95 H 16 104/66 95 08/10/20 00:40 93 H 16 95 Laboratory Results Laboratory Results - last 24 hr 08/10/20 08/10/20 05:39 05:39 WBC 5.45 RBC 3.25 L Hgb 9.4 L Hct 29.2 L MCV 89.8 MCH 28.9 MCHC 32.2 RDW Std Deviation 47.6 H RDW Coeff of Kody 14.3 Plt Count 228 MPV 9.0 Immature Gran % (Auto) 0.2 Neut % (Auto) 70.9 Lymph % (Auto) 14.3 Isabela % (Auto) 11.6 Eos % (Auto) 2.8 Baso % (Auto) 0.2 Neut # (Auto) 3.87 Lymph # (Auto) 0.78 L Isabela # (Auto) 0.63 H Eos # (Auto) 0.15 Baso # (Auto) 0.01 Immature Gran # (Auto) 0.01 Sodium 136 Potassium 3.5 Chloride 106 Carbon Dioxide 27 Anion Gap 3.0 BUN 4 L Creatinine 1.10 Est Cr Clr Drug Dosing 42.1 Est GFR ( Amer) 61.0 Est GFR (Non-Af Amer) 52.6 BUN/Creatinine Ratio 3.6 L Glucose 111 H Calcium 7.6 L Medications Administered Current Inpatient Medications Acetaminophen (Acetaminophen 500 Mg Tab) 1,000 mg PO Q8H PRN PRN Reason: Pain & Pre PT Stop: 09/05/20 16:03 Last Admin: 08/07/20 19:50 Dose: 1,000 mg Documented by: Amlodipine Besylate (Amlodipine Besylate 5 Mg Tab) 5 mg PO QAM NANCY Stop: 09/06/20 08:59 Last Admin: 08/10/20 08:52 Dose: 5 mg Documented by: Diphenhydramine HCl (Diphenhydramine Capsule 25 Mg Cap) 25 mg PO Q8H PRN PRN Reason: Itching Stop: 09/07/20 07:49 Last Admin: 08/09/20 20:46 Dose: 25 mg Documented by: Heparin Sodium (Porcine) (Heparin Sod 5,000 Unit/0.5 Ml Vial) 5,000 units SQ Q12 NANCY Stop: 09/06/20 09:44 Last Admin: 08/10/20 08:53 Dose: 5,000 units Documented by: Lorazepam (Ativan) 1 mg in 2 mls @ 2 mls/min IV BID PRN PRN Reason: Anxiety Stop: 09/08/20 11:34 Last Admin: 08/09/20 21:26 Dose: 2 mls/min Documented by: Potassium Chloride/Dextrose/Sod Cl (D5w And 1/2nss + 20meq Kcl) 20 meq in 1,000 mls @ 100 mls/hr IV .Q10H NANCY Stop: 09/08/20 11:59 Last Admin: 08/10/20 10:02 Dose: 100 mls/hr Documented by: Morphine Sulfate (Morphine Sulfate 2 Mg/Ml Carp) 2 mg IV Q1H PRN PRN Reason: Pain (1,2,3,4,5) & Pre PT Stop: 08/20/20 16:03 Last Admin: 08/07/20 01:20 Dose: 2 mg Documented by: Morphine Sulfate (Morphine Sulfate 4 Mg/Ml 1 Ml Carp\Vial) 4 mg IV Q1H PRN PRN Reason: Pain (6,7,8,9,10) Stop: 08/20/20 16:03 Last Admin: 08/10/20 01:56 Dose: 4 mg Documented by: Ondansetron HCl (Ondansetron Inj 2 Mg/Ml 2 Ml Vial) 4 mg IV Q4H PRN PRN Reason: Nausea And Vomiting Stop: 09/05/20 16:03 Last Admin: 08/10/20 01:56 Dose: 4 mg Documented by: Pantoprazole Sodium (Pantoprazole 40 Mg Tab) 40 mg PO BID NANCY Stop: 09/05/20 20:59 Last Admin: 08/10/20 08:52 Dose: 40 mg Documented by: PG Care Time/CCT Total # of Minutes Spent Total Time Spent with Patient: Total time spent is greater than 50% in coordination of care (as documented) at patient's floor/unit and/or counseling patient: Coding
[2020-08-10] MEDS: MoRPHine SULFATE 2 MG/ML CARP IV PRN (13:56)
[2020-08-10] MEDS: LORazepam 1 MG/2 ML VIAL IV PRN (20:22)
[2020-08-11] MEDS: MoRPHine SULFATE 4 MG/ML 1 ML CARP\\VIAL IV PRN ×2 (03:21→13:10)
[2020-08-11] MEDS: ONDANSETRON INJ 2 MG/ML 2 ML VIAL IV PRN ×3 (03:22→18:21)
--- NOTE | 2020-08-11 06:20 | Surgery Progress Note ---
Date of Service August 11, 2020 Assessment & Plan (1) Status post reversal of ileostomy: We will plan on advancing diet once bowel function returns Continue analgesics Increase activity as tolerated. PT and OT evaluations have been requested Subcu heparin is in place for DVT prevention Dr. Wesley is much brighter and alert today much less anxious and appears to have normal affect She does have some output from her gastrostomy tube-may be passing a small amount of flatus We will try some sips of clear liquids, continue gastrostomy to gravity assess output Try to have her walk in the hallway, she seems to be making some very slow progress but will likely require Additional 3 to 4 days in the hospital Admission and Anticipated Discharge Date Admission Date: August 06, 2020 Subjective Patient denies fevers, shakes, chills. She does not have any nausea vomiting. She has not had return of bowel function since surgery. Physical Exam Respiratory: normal respiratory effort; no respiratory distress and no labored breathing Gastrointestinal (Abdomen): Percussion/Palpation: + abdomen tender Bowel sounds are hypoactive. Mild distention noted. Results & Data ([facility]) Vital Signs (Past 12 Hours) Vital Signs Temp Pulse Resp BP Pulse Ox 08/10/20 23:00 36.7 C 94 H 16 105/72 93 PG Care Time/CCT Total # of Minutes Spent Total Time Spent with Patient: Total time spent is greater than 50% in coordin ation of care (as documented) at patient's floor/unit and/or counseling patient: Coding Level of Care Code None Diagnoses Status post reversal of ileostomy Z98.890
[2020-08-11 06:24] LABS: Basophils # (auto) 0.01 K/uL (0-0.2); Basophils % (auto) 0.3 %; Eosinophils # (auto) 0.15 K/uL (0-0.5); Eosinophils % (auto) 3.8 %; Hematocrit (blood only) 28.8 % (37-47); Hemoglobin 9.2 g/dL (12.0-16.0); Immature Granulocytes # (auto) 0.01 K/uL (0.00-0.02); Immature Granulocytes % (auto) 0.3 %; Lymphocytes % (auto) 15.3 %; Mean Corpuscular Hemoglobin 28.8 pg (25-34); Mean Corpuscular Hgb Conc 31.9 g/dL (32-36); Mean Platelet Volume 8.7 fL (7.4-10.4); Monocytes # (auto) 0.47 K/uL (0.11-0.59); Neutrophils # (auto) 2.68 K/uL (1.4-6.5); Neutrophils % (auto) 68.3 %; Platelet Count 216 K/uL (130-400); White Blood Count 3.92 K/uL (4.8-10.8)
[2020-08-11 06:53] LABS: BUN Creatinine Ratio 1.9 (10-20); Calcium 7.9 mg/dl (8.5-10.1); Creatinine Clr Calc Pharmacy 44.1 ml/min; Est GFR (African American) 64.5; Est GFR (Non-African American) 55.7; Potassium 3.6 mmol/L (3.5-5.1)
[2020-08-11] MEDS: PANTOprazole 40 MG TAB PO SCH ×2 (08:18→21:37)
[2020-08-11] MEDS: amLODIPine BESYLATE 5 MG TAB PO SCH (08:18)
[2020-08-11] MEDS: HEPARIN SOD 5,000 UNIT/0.5 ML VIAL SQ SCH ×2 (08:19→21:37)
[2020-08-11] MEDS: SENNOSIDES 8.8 MG/5 ML UDC PO SCH ×2 (08:21→21:37)
[2020-08-11] MEDS: D5W AND 1/2NSS + 20MEQ KCL 20 MEQ/1,000 ML BAG IV SCH ×2 (10:34→23:07)
[2020-08-11 15:16] LABS: Appearance Urine Clear (Clear); Bacteria Urine Automated Negative (Negative); Bilirubin Urine Negative (Negative); Blood Urine Negative (Negative); Cast Urine Automated 0 /lpf (0-5); Color Urine Yellow; Glucose Urine UA Negative (Negative); Ketones Urine Negative (Negative); Leukocyte Esterase Urine Trace (Negative); Nitrite Urine Negative (Negative); Protein Urine Negative (Negative); RBC Urine Automated 0-4 /hpf (0-4); Specific Gravity Urine 1.008 (1.000-1.030); Urobilinogen Urine Negative (Negative); pH Urine 5.5 (4.5-7.5)
[2020-08-11] MEDS: MoRPHine SULFATE 2 MG/ML CARP IV PRN (16:20)
[2020-08-11] MEDS ORDERED: COUGH DROP (SUGAR FREE) LOZ 24 LOZ/1 BOX BUCCAL PRN (19:43)
[2020-08-11] MEDS ORDERED: COUGH DROP (SUGAR FREE) LOZ 24 LOZ/1 BOX BUCCAL ONE (19:45)
[2020-08-11] MEDS: PROMETHAZINE HCL 12.5 MG in SODIUM CHLORIDE 0.9% 50 ML IV PRN (21:39)
[2020-08-12] MEDS: D5W AND 1/2NSS + 20MEQ KCL 20 MEQ/1,000 ML BAG IV SCH ×2 (07:01→11:22)
--- NOTE | 2020-08-12 07:30 | Surgery Progress Note ---
Date of Service August 12, 2020 Assessment & Plan (1) Status post reversal of ileostomy: This point she is 6 postoperative day status post closure and ileostomy she is almost to the area where we may need to start hyperalimentation if she does not open up soon will obtain an abdominal x-ray this morning The amount of NG drainage is significant although the patient takes a significant amount of oral fluids Lab from yesterday was noted All questions were answered Present on Admission?: Yes Admission and Anticipated Discharge Date Admission Date: August 06, 2020 Subjective Overall she states she feels better she occasionally has dry heaves she is taking a significant amount of oral fluids even though the gastrostomy tube is open denies any flatus or bowel movement Physical Exam Physical Exam: Is alert coherent sleeping when I walked into the room easily awakened appears comfortable she has a heating blanket on her abdomen Oral mucosa was moist gastrostomy tube is light bilious in nature The abdomen is softly distended there is no localized tenderness The dressings are dry Results & Data ([facility]) Vital Signs (Past 12 Hours) Vital Signs Temp Pulse Resp BP Pulse Ox 08/11/20 22:59 36.7 C 93 H 18 121/74 93 PG Care Time/CCT Total # of Minutes Spent Total Time Spent with Patient: Total time spent is greater than 50% in coordination of care (as documented) at patient's floor/unit and/or counseling patient: Coding Level of Care Code 50788 Subseq Hosp Care Lvl 3 Diagnoses Status post reversal of ileostomy Z98.890
[2020-08-12] MEDS: PANTOprazole 40 MG TAB PO SCH ×2 (08:39→20:19)
[2020-08-12] MEDS: SENNOSIDES 8.8 MG/5 ML UDC PO SCH ×2 (08:39→20:20)
[2020-08-12] MEDS: amLODIPine BESYLATE 5 MG TAB PO SCH (08:39)
[2020-08-12] MEDS: HEPARIN SOD 5,000 UNIT/0.5 ML VIAL SQ SCH ×2 (08:40→20:19)
[2020-08-12] MEDS: ACETAMINOPHEN 500 MG TAB PO PRN (08:57)
--- NOTE | 2020-08-12 10:40 | XRay Report ---
KUB CLINICAL HISTORY: Abdominal distention. FINDINGS: 2 AP, portable, supine abdominal radiographs are compared to study dated 06/12/2020 and rashida elated with abdominal CT dated 07/10/2020. Cholecystectomy clips are noted in the right upper quadran t. The small bowel loops are distended and gas-filled measuring up to 4.4 cm diameter. No evidence of intraperitoneal free air is seen on these supine views. There are no abnormal abdominal calcificatio ns. Phleboliths are seen in the pelvis. The skeletal structures are osteopenic. Lumbosacral spondylos is is observed. IMPRESSION: There is gaseous distention of the small bowel loops typical in appearance for obstructio n. Clinical correlation will be required. Electronically signed by: Ignacio Askew M.D. 08/12/2020 10:38 AM
[2020-08-12] MEDS: ONDANSETRON INJ 2 MG/ML 2 ML VIAL IV PRN ×2 (12:40→20:20)
[2020-08-12] MEDS: PROMETHAZINE HCL 12.5 MG in SODIUM CHLORIDE 0.9% 50 ML IV PRN (21:01)
[2020-08-12] MEDS: LORazepam 1 MG/2 ML VIAL IV PRN (21:24)
[2020-08-13] MEDS: D5W AND 1/2NSS + 20MEQ KCL 20 MEQ/1,000 ML BAG IV SCH ×2 (00:21→16:52)
[2020-08-13] MEDS: MoRPHine SULFATE 2 MG/ML CARP IV PRN ×3 (00:30→22:03)
[2020-08-13] MEDS: ACETAMINOPHEN 500 MG TAB PO PRN (01:11)
[2020-08-13] MEDS: ONDANSETRON INJ 2 MG/ML 2 ML VIAL IV PRN (01:12)
--- NOTE | 2020-08-13 06:52 | Surgery Progress Note ---
Date of Service August 13, 2020 Assessment & Plan (1) Status post reversal of ileostomy: Patient is 7 days postop closure and ileostomy patient has been anxious all along taking a significant amount of oral intake liquids that is accounting for lots of the gastrostomy drainage The KUB yesterday as noted showed what appears to be obstruction small bowel I suspect this is all edema at the anastomosis Since the patient is moving her bowels as she stated multiple times in the abdomen is softer I will clamp the gastrostomy tube and start her on some liquids If her oral intake is not sufficient and she still has not sufficient GI function then she is time to consider hyperalimentation Present on Admission?: Yes Admission and Anticipated Discharge Date Admission Date: August 06, 2020 Subjective Feels much better this morning last night she had an episode of dry heaving a small emesis bilious in nature Although yesterday she has some Tylenol last night she had some morphine She states she has had multiple liquid bowel movements (although none recorded by the nurses notes) Physical Exam Physical Exam: She is alert coherent resting comfortable no distress Gastrostomy tube is draining slight bilious output noted (patient has been taking a significant amount of liquids p.o. that may account for some of the volume) The abdomen is softer there is no localized tenderness minimal drainage and ileostomy closure site Results & Data ([facility]) Vital Signs (Past 12 Hours) Vital Signs Temp Pulse Resp BP Pulse Ox 08/13/20 06:18 84 20 98 08/13/20 00:39 97 H 22 93 08/12/20 23:00 36.7 C 91 H 18 124/78 92 PG Care Time/CCT Total # of Minutes Spent Total Time Spent with Patient: Total time spent is greater than 50% in coordination of care (as documented) at patient's floor/unit and/or counseling patient: Coding Level of Care Code None Diagnoses Status post reversal of ileostomy Z98.890
[2020-08-13] MEDS: SENNOSIDES 8.8 MG/5 ML UDC PO SCH ×3 (09:23→20:21)
[2020-08-13] MEDS: HEPARIN SOD 5,000 UNIT/0.5 ML VIAL SQ SCH ×2 (09:23→20:21)
[2020-08-13] MEDS: amLODIPine BESYLATE 5 MG TAB PO SCH (09:24)
[2020-08-13] MEDS: PANTOprazole 40 MG TAB PO SCH ×2 (09:24→20:21)
[2020-08-13] MEDS: LORazepam 1 MG/2 ML VIAL IV PRN (20:55)
--- NOTE | 2020-08-14 06:59 | Surgery Progress Note ---
Date of Service August 14, 2020 Assessment & Plan (1) Status post reversal of ileostomy: Patient appears to be turning the corner and hopefully will be able to plan discharge by tomorrow she is agreeable to that if she tolerates her diet today and has no abdominal discomfort We will DC the morphine he certainly can have some Tylenol on a as needed basis for pain we will increase her diet leave the gastrostomy tube clamped and if she meets the prior stated to parameters above we will proceed accordingly Present on Admission?: Yes Admission and Anticipated Discharge Date Admission Date: August 06, 2020 Subjective She states she had a very good day yesterday bowels are moving liquid and she has some abdominal pain and took some morphine twice She had a good night without any discomfort Physical Exam Physical Exam: Alert coherent The abdomen is softer still slightly distended No drainage from the right lower quadrant ileostomy site closure No pedal edema Results & Data ([facility]) Vital Signs (Past 12 Hours) Vital Signs Temp Pulse Resp BP Pulse Ox 08/13/20 23:47 37.1 C 96 H 18 118/66 94 PG Care Time/CCT Total # of Minutes Spent Total Time Spent with Patient: Total time spent is greater than 50% in coordination of care (as documented) at patient's floor/unit and/or counseling patient: Coding Level of Care Code None Diagnoses Status post reversal of ileostomy Z98.890
[2020-08-14] MEDS: amLODIPine BESYLATE 5 MG TAB PO SCH (08:10)
[2020-08-14] MEDS: PANTOprazole 40 MG TAB PO SCH ×2 (08:10→20:22)
[2020-08-14] MEDS: HEPARIN SOD 5,000 UNIT/0.5 ML VIAL SQ SCH ×2 (08:10→20:23)
[2020-08-14] MEDS: ACETAMINOPHEN 500 MG TAB PO PRN (08:10)
[2020-08-14] MEDS: SENNOSIDES 8.8 MG/5 ML UDC PO SCH ×2 (08:45→20:12)
[2020-08-14] MEDS: ONDANSETRON INJ 2 MG/ML 2 ML VIAL IV PRN (11:36)
[2020-08-14] MEDS: PROMETHAZINE HCL 12.5 MG in SODIUM CHLORIDE 0.9% 50 ML IV PRN (13:40)
[2020-08-14] MEDS: LORazepam 1 MG/2 ML VIAL IV PRN (14:09)
[2020-08-14 16:07] LABS: Basophils # (auto) 0.01 K/uL (0-0.2); Basophils % (auto) 0.2 %; Eosinophils # (auto) 0.11 K/uL (0-0.5); Hematocrit (blood only) 32.1 % (37-47); Hemoglobin 10.5 g/dL (12.0-16.0); Immature Granulocytes # (auto) 0.02 K/uL (0.00-0.02); Immature Granulocytes % (auto) 0.4 %; Lymphocytes # (auto) 0.57 K/uL (1.2-3.4); Lymphocytes % (auto) 10.4 %; Mean Corpuscular Hemoglobin 28.9 pg (25-34); Mean Corpuscular Hgb Conc 32.7 g/dL (32-36); Mean Corpuscular Volume 88.4 fL (80-100); Monocytes # (auto) 0.57 K/uL (0.11-0.59); Monocytes % (auto) 10.4 %; Neutrophils # (auto) 4.22 K/uL (1.4-6.5); Neutrophils % (auto) 76.6 %; Platelet Count 284 K/uL (130-400); RDW Coefficient of Variation 14.1 % (11.5-14.5); RDW Standard Deviation 46.4 fL (36.4-46.3); Red Blood Count 3.63 M/uL (4.2-5.4)
[2020-08-14 16:32] LABS: BUN Creatinine Ratio 2.5 (10-20); Calcium 8.1 mg/dl (8.5-10.1); Creatinine Clr Calc Pharmacy 39.3 ml/min; Est GFR (Non-African American) 48.4; Potassium 3.6 mmol/L (3.5-5.1)
--- NOTE | 2020-08-15 07:22 | Surgery Progress Note ---
Date of Service August 15, 2020 Assessment & Plan (1) Status post reversal of ileostomy: This point we will check for C. difficile stop the Senokot start the patient back on his Questran which she had been taking at home and may need GI follow-up regarding resuming Remicade We will keep your patient here today to make sure that the diarrhea subsides before discharge Present on Admission?: Yes Admission and Anticipated Discharge Date Admission Date: August 06, 2020 Subjective She states she had a horrible night having had multiple bowel movements liquid She tolerated a diet yesterday although one time she was little bit nauseated Physical Exam Physical Exam: She is alert comfortable this morning in no acute distress appears well-hydrated Gastrointestinal (Abdomen): Abdomen soft much more so than yesterday the incision right lower quadrant without any drainage gastrostomy tube still in place there is no localized tenderness Results & Data ([facility]) Vital Signs (Past 12 Hours) Vital Signs Temp Pulse Resp BP Pulse Ox 08/14/20 23:29 37.3 C 94 H 18 125/69 97 PG Care Time/CCT Total # of Minutes Spent Total Time Spent with Patient: Total time spent is greater than 50% in coordination of care (as documented) at patient's floor/unit and/or counseling patient: Coding Level of Care Code None Diagnoses Status post reversal of ileostomy Z98.890
[2020-08-15] MEDS: amLODIPine BESYLATE 5 MG TAB PO SCH (09:06)
[2020-08-15] MEDS: PANTOprazole 40 MG TAB PO SCH ×2 (09:06→20:43)
[2020-08-15] MEDS: ACETAMINOPHEN 500 MG TAB PO PRN ×2 (09:06→20:50)
[2020-08-15] MEDS: HEPARIN SOD 5,000 UNIT/0.5 ML VIAL SQ SCH ×2 (09:06→20:43)
[2020-08-15 11:02] LABS: Cdiff Antigen Negative; Cdiff Toxin A+B Negative Cdiff Toxin (Negative)
[2020-08-15] MEDS: CHOLESTYRAMINE LIGHT 4 GM PKT PO SCH ×2 (11:23→22:17)
--- NOTE | 2020-08-16 08:09 | Surgery Progress Note ---
Date of Service August 16, 2020 Assessment & Plan (1) Status post reversal of ileostomy: Patient feeling clinically well today BM's have slowed down. Cdiff was negative for toxin She has been tolerating a regular diet Pain well controlled on tylenol RLQ wound probed with q-tip at bedside to ensure it's open and drainage. Will ask patient to continue daily dressing changes with 4x4 gauze and medical tape Pt to follow up in surgery clinic next Wednesday for follow up and likely G-tube removal Plan for discharge to home today Pt seen and examined with Dr. Beckham Admission and Anticipated Discharge Date Admission Date: August 06, 2020 Subjective Patient states she is feeling much better than yesterday. Her BM's have slowed down. She is tolerating a diet. Physical Exam Physical Exam: awake/alert Respiratory: normal respiratory effort Gastrointestinal (Abdomen): Inspection/Auscultation: + abdominal surgical incision (c/d/i, some drainage noted on RLQ incision bandage); abdomen not distended Percussion/Palpation: abdomen soft Results & Data ([facility]) Vital Signs (Past 12 Hours) Vital Signs Temp Pulse Pulse Resp BP Pulse Ox 08/16/20 07:23 36.7 C 79 16 132/78 96 08/15/20 23:06 36.9 C 82 16 107/68 96 PG Care Time/CCT Total # of Minutes Spent Total Time Spent with Patient: Total time spent is greater than 50% in coordination of care (as documented) at patient's floor/unit and/or counseling patient: Coding Level of Care Code None Diagnoses Status post reversal of ileostomy Z98.890
[2020-08-16] MEDS: amLODIPine BESYLATE 5 MG TAB PO SCH (08:28)
[2020-08-16] MEDS: HEPARIN SOD 5,000 UNIT/0.5 ML VIAL SQ SCH (08:28)
[2020-08-16] MEDS: PANTOprazole 40 MG TAB PO SCH (08:28)
--- NOTE | 2020-08-20 11:41 | Discharge Summary ---
Date of Service August 20, 2020 Principal Diagnosis Protective ileostomy Discharge Exam Constitutional WD/WN, vitals as above Gastrointestinal (Abdomen) Inspection/Auscultation: + abdominal surgical incision (partially open); abdomen not distended (gastrostomy tube intact) Percussion/Palpation: abdomen soft Discharge Data Allergies Allergy/AdvReac Type Severity Reaction Status Date / Time amoxicillin AdvReac Intermediate Diarrhea Verified 08/19/20 09:38 cephalexin AdvReac Intermediate Diarrhea Verified 08/19/20 09:38 pneumococcal vaccine AdvReac Intermediate Severe Verified 08/19/20 09:38 swell/redness Consultations 08/10/20 05:39 Consult Case Management - Discharge Planning Routine Procedures Performed Operation Date: 08/06/20 11:15 Actual Procedures p Closure of Ileostomy and Resection portion of ileum(Not Applicable) - Alberto Beckham MD Hospital Course (1) Status post reversal of ileostomy: 65 y/o female with protective ileostomy was taken to the operating room for takedown with hand-sewn anastomosis and transferred to the surgical sy for recovery. She has history of slow bowel recovery, and has gastrostomy tube from previous surgery. She was tolerating only small amounts of clears over the first few days and by day 4 was more symptomatic and required opening of the G-tube to gravity for several days. X-ray suggested an obstructive pattern that we attributed to anastomotic edema. Once she was showing signs of returning bowel function she was able to tolerate clamping of the gastrostomy and an advancing diet. By day 8 she was having multiple loose BMs which tested negative for C. diff. Her diarrhea had improved by POD 9 and at that time she was stable for discharge home. Total Time Total Time Spent Total Time Spent (In Minutes): 15 Discharge Plan Discharge Items Patient Disposition: Home - Home Health Services Reason For Visit: Ileostomy in Place; Small Bowel Obstruction Discharge Diagnosis: closure of ileostomy Activity: Per Instructions section Lifting: No more than 10 pounds Bathing Comment: may shower; no soaking in tubs/pools Exercise/Sports: Wait until after follow-up appointment Driving/Machine Use: Resume 3 days after discharge Non-emergency contact: Surgeon Call non-emergency contact if: you have any medication questions, your symptoms worsen, your pain is not controlled, your pain is worsening, your pain is concerning for you, you have a fever, your temperature is above 101.5, your wound has increased redness, your wound has increased drainage and your wound pain has increased Follow-up/Referrals: Alberto Beckham MD [Surgeon] - 08/19/20 9:45 am (Please call to schedule follow up in clinic next Wednesday at 10:00am with Dr. Beckham) Dara Trejo DO [Primary Care Provider] - Diet: Regular Addtl Attending Provider Instructions: You may purchase Tylenol over the counter for pain control if needed. - Tylenol 650mg orally every 4-6 hours, as needed for pain. Do not exceed more than 3grams of Acetaminophen within a 24hour time period. You may change your surgical bandage daily and as needed. Cover wound with dry 4x4 gauze and adhere with medical tape. Pending Studies at Discharge: No Stand-Alone Forms: My [facility] Image [employer], Smoking Cessation Medications and DC Order Prescriptions: Continued cholecalciferol (vitamin D3) 5,000 unit tablet 5,000 unit PO QAM RF: 0 amlodipine 5 mg tablet 5 mg PO QAM RF: 0 multivitamin tablet 1 tab PO QAM RF: 0 pantoprazole 40 mg tablet,delayed release (DR/EC) 40 mg PO BID Qty: 60 RF: 0 folic acid 1 mg tablet 1 mg PO QAM Qty: 30 RF: 0 cholestyramine (with sugar) 4 gram powder in packet 4 g PO QAM RF: 0 valacyclovir [Valtrex] 500 mg Tablet 1,000 mg PO UD PRN (Reason: Cold Sores) RF: 0 Calcium 600 + D(3) 600 mg calcium- 200 unit Capsule 1 cap PO BID RF: 0 cranberry extract-vitamin C 250-60 mg Capsule 1 cap PO QAM RF: 0 ibuprofen 400 mg Tablet 400 mg PO TID PRN (Reason: Pain) RF: 0 bisacodyl 5 mg Tablet 10 mg PO DIRECTED RF: 0 Discontinued hydrocodone-acetaminophen 5-325 mg Tablet 1 tab PO BID PRN (Reason: Pain) RF: 0 erythromycin 500 mg tablet 1,000 mg PO DIRECTED RF: 0 neomycin 500 mg tablet 1 g PO DIRECTED RF: 0 No Action ciprofloxacin HCl 500 mg tablet 500 mg PO BID 6 Days Qty: 12 RF: 0 Discharge Orders: Discharge Order (Routine); Ordered 08/16/20 Ordered By: Millie Cortes Admission Data Admit Date/Time: 08/06/20 14:25 Attending Provider: Alberto Beckham Admit Provider: Alberto Beckham Primary Care Provider: Dara Trejo Other Interventions: Discharge Summary Assessment (RN) Last Done: 08/16/20 09:37 Coding Level of Care Code D/C Day Management <30 mins Diagnoses Status post reversal of ileostomy Z98.890
== END 2020-08-16 11:05 | disposition home health service (06) | DRG 330 ==
LOC: ASU 09:43 → 3W 14:25 → SUATTDRO 14:25
DX: K56.609 Unspecified intestinal obstruction, unspecified as to partial versus complete obstruction; Z79.899 Other long term (current) drug therapy; Z43.2 Encounter for attention to ileostomy

== ENCOUNTER 2021-10-23 05:11 | Inpatient (IN) ==
--- NOTE | 2021-10-21 09:14 | Anesthesiology Consultation ---
Date of Service October 21, 2021 Assessment & Plan (1) Encounter for pre-operative examination: COVID screening: Per assessment on 10/20: No known COVID-19 positive contacts or current COVID-19 related symptoms. Travel screen negative. Patient vaccinated. Preop Covid test done 10/21/21 ([place]) is pending. Chart Review Chart Review: Acceptable Risk for Surgery and Patient NOT seen in Pre Admission Testing History Surgery Operation Date: 10/23/21 07:00 Proposed Procedures p Open Incisional Hernia Repair with Mesh - Alberto Beckham MD, FACS Height/Weight Height: 5 ft 1 in Weight: 76.204 kg Allergies Allergy/AdvReac Type Severity Reaction Status Date / Time amoxicillin AdvReac Unknown Diarrhea Verified 10/20/21 15:51 cephalexin AdvReac Unknown Diarrhea Verified 10/20/21 15:51 pneumococcal vaccine AdvReac Unknown Severe Verified 10/20/21 15:51 swell/redness AT INJECTION SITE Medications Home Medications Medication Instructions Recorded Confirmed Last Taken amlodipine 5 mg tablet 10 mg PO QAM tab 03/21/19 10/20/21 08/06/20 06:30 cholecalciferol (vitamin D3) 125 5,000 unit PO QAM tab 03/21/19 10/20/21 08/03/20 07:00 mcg (5,000 unit) tablet multivitamin 1 tab PO QAM 03/21/19 10/20/21 08/03/20 07:00 calcium carbonate 600 mg-vitamin 1 cap PO QAM 12/13/19 10/20/21 08/03/20 07:00 D3 5 mcg (200 unit) capsule (Calcium 600 + D(3)) valacyclovir 500 mg tablet 1,000 mg PO UD PRN 12/13/19 10/20/21 12/23/19 (Valtrex) ibuprofen 400 mg tablet 400 mg PO UD PRN 07/31/20 10/20/21 Unknown ferrous sulfate 325 mg (65 mg 325 mg PO QAM 07/22/21 10/20/21 Unknown iron) tablet hydrocodone 5 mg-acetaminophen 325 1 tab PO UD PRN 07/22/21 10/20/21 Unknown mg tablet pantoprazole 40 mg tablet,delayed 40 mg PO BID 07/22/21 10/20/21 Unknown release cholestyramine (with sugar) 4 gram 1 ea PO QAM 10/20/21 10/20/21 Unknown powder for susp in a packet infliximab-dyyb 100 mg intravenous 100 mg IV Q8WK 10/20/21 10/20/21 Unknown solution (Inflectra) metronidazole 500 mg tablet 500 mg PO UD 10/20/21 10/20/21 Unknown neomycin 500 mg tablet 1 g PO UD 10/20/21 10/20/21 Unknown Past Medical History Medical History (Updated 10/21/21 @ 09:13 by Sara Gallegos) Crohns disease Degenerative disc disease GERD without esophagitis History of kidney stones Hypertension Osteoarthritis Overactive bladder Sleep apnea USES CPAP Past Family History Family History Sister Family history of diabetes mellitus Other No family history of adverse response to anesthesia Past Surgical History Surgical History (Updated 10/20/21 @ 16:14 by Diego Torres, RN) H/O exploratory laparotomy (06/13/20) Exploratory Laparotomy, Lysis of Adhesions, Peristomal Hernia Repair, Closure of Colostomy, Protective Ileostomy, Gastrostomy tube placement Dr. Beckham 06/13/2020 History of anesthesia reaction SLOWER TO WAKE UP History of bilateral cataract extraction History of bilateral tubal ligation History of cholecystectomy History of closure of ileostomy (08/06/20) Closure of Ileostomy and Resection portion of ileum Dr. Beckham 08/06/20 History of colon resection (01/29/20) Secondary to perforated diverticulum. Exploratory Laparotomy; open Resection of Sigmoid Colon; creation of colostomy Dr. Beckham 01/29/20> colostomy since reversed in Jun 2020 History of colonoscopy with polypectomy History of cystoscopy History of endoscopy History of nasal cauterization History of Staci fundoplication with hernia repair History of total vaginal hysterectomy S/P Botox injection TO BLADDER Status post trigger finger release right hand Social History Smoking Status: Never smoker Do You Dip or Chew Tobacco: No Hx Alcohol Use: No Hx Substance Use: No substance use type: prescription drug Lab Results Anesthesia Preop Results Results Anesthesia Widget: WBC 4.08 K/uL (4.8-10.8) L 10/03/21 Hgb 13.8 g/dL (12.0-16.0) 10/03/21 Hct 40.7 % (37-47) 10/03/21 Plt 247 K/uL (130-400) 10/03/21 Na 141 mmol/L (136-145) 10/03/21 K 3.5 mmol/L (3.5-5.1) 10/03/21 Cl 106 mmol/L (98-107) 10/03/21 CO2 27 mmol/L (21-32) 10/03/21 BUN 21 mg/dl (6-23) 10/03/21 Creat 0.86 mg/dl (0.6-1.2) 10/03/21 Glucose Level 97 mg/dl (70-99(Fasting)) 10/03/21 Testing Electrocardiogram Date: 10/03/21 NSR at 72bpm. NS STA. No significant change compared to 06/10/2020 per director of workforce development review. Chest X-Ray Date: 10/03/21 Findings: + NAD
[2021-10-23] MEDS ORDERED: LR 15ML/HR IV SCH (06:00)
--- NOTE | 2021-10-23 06:18 | History & Physical Bridge Note ---
Date of Service October 23, 2021 History & Physical Bridge Note I have examined the patient, reviewed the History & Physical and in the interval since the performance of the History & Physical I have noted the following changes of clinical significance: no changes noted pt marked all question answered at bedside
[2021-10-23] MEDS ORDERED: BUPIVACAINE 0.5 % 5 MG/1 ML MPF 30ML VIAL ONE (06:40)
[2021-10-23] MEDS ORDERED: LIDOCAINE 1% LOCAL 20 ML VIAL ONE (06:40)
[2021-10-23] MEDS ORDERED: fentaNYL citrate 100 MCG/2 ML VIAL ONE (06:43)
[2021-10-23] MEDS ORDERED: MIDAZOLAM HCL 1 MG/ML 2ML VIAL ONE (06:43)
[2021-10-23] MEDS ORDERED: ACETAMINOPHEN 1000 MG/100 ML IV IV ONE (06:50)
[2021-10-23] MEDS ORDERED: ALBUMIN HUMAN 5% 12.5 GM/250 ML VIAL IV ONE ×2 (06:50→09:21)
[2021-10-23] MEDS ORDERED: SUGAMMADEX SODIUM 200 MG/2 ML VIAL IV ONE (06:50)
[2021-10-23] MEDS ORDERED: HYDROmorphone INJ 1 MG/ML SYRINGE ONE (07:23)
[2021-10-23] MEDS ORDERED: KETAMINE 50 MG/5 ML SYRINGE ONE (07:23)
[2021-10-23] MEDS ORDERED: ceFAZolin 2000MG 2,000 MG/15 ML SYR IV ONE (07:40)
[2021-10-23] MEDS ORDERED: ONDANSETRON INJ 2 MG/ML 2 ML VIAL ONE (08:48)
[2021-10-23] MEDS ORDERED: ROCURONIUM BROMIDE 10 MG/ML 5 ML VIAL IV ONE (08:48)
[2021-10-23] MEDS ORDERED: ePHEDrine sulfate 50 MG/ML SYR ONE (08:48)
[2021-10-23] MEDS ORDERED: PROPOFOL IV EMULSION 10 MG/ML 20 ML VIAL IV ONE (08:48)
[2021-10-23] MEDS ORDERED: PHENYLEPHRINE 100MCG/ML 5ML SYR ONE (08:48)
[2021-10-23] MEDS ORDERED: DEXAMETHASONE SOD INJ 4 MG/ML VIAL ONE (08:48)
[2021-10-23] MEDS ORDERED: ceFAZolin 330 MG/ML 1 GM VIAL ONE (09:13)
[2021-10-23] MEDS ORDERED: FLUMAZENIL 0.1 MG/1 ML 10 ML VIAL IV PRN (09:16)
[2021-10-23] MEDS ORDERED: NALOXONE HCL 0.4 MG/1 ML VIAL/CARP IV PRN ×2 (09:16→12:10)
[2021-10-23] MEDS ORDERED: ONDANSETRON INJ 2 MG/ML 2 ML VIAL IV PRN (09:16)
[2021-10-23] MEDS ORDERED: PROMETHAZINE HCL 12.5 MG in SODIUM CHLORIDE 0.9% 50 ML IV PRN (09:16)
[2021-10-23] MEDS ORDERED: LABETALOL HCL IV 5 MG/ML 20ML IV PRN (09:16)
[2021-10-23] MEDS ORDERED: ATROPINE SULFATE 0.1 MG/ML 10ML SYR IV PRN (09:16)
[2021-10-23] MEDS ORDERED: ePHEDrine sulfate 50 MG/ML AMP IV PRN (09:16)
--- NOTE | 2021-10-23 10:02 | Post Operative Brief Note ---
PG Immediate Post Op with CF Date of Surgery October 23, 2021 Pre & Post Diagnosis Operation Date: 10/23/21 07:00 Pre-Op Diagnosis: Incisional Hernia Post-Op Diagnosis: Incisional Hernia Procedure Operation Date: 10/23/21 07:00 Actual Procedures p Open Incisional Hernia Repair with Mesh(Not Applicable) - Alberto Beckham MD, FACS Surgeon Alberto Beckham MD, FACS Estimated Blood Loss 100 Specimens Specimen Description: 1. Urine for Culture A. Hernia Sac Drains Pastor Drain (x 2) and Kamara Catheter
--- NOTE | 2021-10-23 10:05 | Post Operative Brief Note ---
PG Immediate Post Op with CF Date of Surgery October 23, 2021 Pre & Post Diagnosis Operation Date: 10/23/21 07:00 Pre-Op Diagnosis: Incisional Hernia Post-Op Diagnosis: Incisional Hernia I identified the patient and participated in the time-out.: Yes Procedure Operation Date: 10/23/21 07:00 Actual Procedures p Open Multiple Incisional Hernia Repair with Compartmental Seperation and Ovitex Mesh (Not Applicable) - Alberto Beckham MD, FACS Surgeon Alberto Beckham MD, FACS Fixed Interest Dealer B CELINE SINGH Estimated Blood Loss 100 Findings Consistent with Post-Op Diagnosis Specimens Specimen Description: 1. Urine for Culture A. Hernia Sac Drains Pastor Drain (x 2) and Kamara Catheter
[2021-10-23] MEDS ORDERED: PROMETHAZINE HCL 6.25 MG in SODIUM CHLORIDE 0.9% 50 ML IV STA ×2 (10:29→11:25)
--- NOTE | 2021-10-23 10:29 | Operative Report ---
Post Operative Report Pre & Post Diagnosis Operation Date: 10/23/21 07:00 Pre-Op Diagnosis: Incisional Hernia Post-Op Diagnosis: Incisional Hernia I identified the patient and participated in the time-out.: Yes Procedure Operation Date: 10/23/21 07:00 Actual Procedures p Open Multiple Incisional Hernia Repair with Compartmental Seperation and Ovitex Mesh (Not Applicable) - Alberto Beckham MD, FACS The patient was brought into the operating theater supine position general endotracheal anesthesia Kamara catheter inserted the abdomen prepped with Betadine scrub and solution properly draped systemic antibiotics on board a timeout was had patient was identified we made an incision starting at the uppermost aspect of her previous midline incision this was almost subxiphoid we elliptically cut out the old scar and section down to the subcutaneous tissue excising it and then worked her way down to the abdominal wall we started in the most upper aspect where he entered the peritoneum there is no adhesions appreciated there but then we worked our way down caudad and section by freeing up mostly omental adhesions to the undersurface of the incision as we these adhesions both sides laterally we are met with multiple incisional hernias 1 in left upper area that accounted for the bulge that she had in left upper quadrant another 1 midportion above the umbilicus to the left both of these hernias were approximately 2-1/2 to 3 cm in size the midline incision was pretty much all replaced by hernia and we freed this from the underlying omentum no bowel was adherent to the undersurface of the abdominal incision or the other hernias we took our dissection on top of the abdominal wall the left side first going well beyond the rectus all the way to the external muscle similarly on the right side we worked our way on the same plane above the abdominal wall to the point where we actually saw hernia at the ileostomy site this defect was approximately 4-1/2 cm to 5 cm x 4 cm once have freed this circumferentially we then looked at the bowel the patient had multiple friable adhesions that we took out mostly by sharp dissection starting at the ligament of Treitz all the way down to the cecum we identified the closure of the ileostomy no adhesions to that particular part of the small bowel was noted with Birchwood's we grasped the 2 sides of the abdominal wall in the central portion we felt that we best served by compartment separation therefore on the left side we scored onto the external fascia laterally and coming to the anterior rectus superiorly and inferiorly on the right side at first closed the hernia at the ileostomy site by first removing the hernial sac and then closed this with #0 PDS interrupted sutures we then scored the external fascia laterally in a similar fashion as we have done taken it to the rectus fascia anteriorly towards the symphysis pubis and in the epigastric area having accomplished this we noticed that the 2 sides of the incision in the midline that we have freed up could be approximated fairly free without too much tension we then used a #0 PDS starting 1 at the upper more portion of the incision the other 1 near the symphysis pubis and tying it in the middle The patient I felt best due to her past history of infections and immunocompromisation the tried to close the wound by using Ovitex mesh 20 x 20 cm we placed the mesh in saline and let it soak for a few minutes and we brought it up onto the operative field the 20 x 26 cm was pretty much the dimensions that we had marked from the lateral aspect external fascia which was about 15 cm so and cephalad coded defect about 18 cm once the mesh was placed on the field we started 3 o'clock position using 2-0 Prolene and sutured the mesh onto the external fascia and rectus fascia and of continuous fashion we took it up to 12 o'clock position trimming the mesh as we went along we then continued with another similar suture starting at 3:00 taking bites of the mesh external fascia rectus fascia down to the symphysis pubis and tying the knot the midline of the mesh was pretty much placed on the closure of the abdominal wall centrally and I tacked it down in a running fashion with 2-0 PDS starting 1 at 6 o'clock position one at 12 o'clock position time and in the middle the cyst just to tack down onto the abdominal wall there was no tension placing the sutures then at 6:00 we start another 2-0 Prolene trimmed the mesh accordingly as we took it laterally to the 9 o'clock position this 1 we went well beyond the closure of the ileostomy site and again I elected to tack the mesh onto the closure of the ileostomy hernial sites with 2-0 PDS from 9:00 to 12 position and running 2-0 Prolene suture was placed when we were finished the mesh was tension-free we checked that hemostasis circumferentially no bleeding was identified prior to closing the abdominal wall I elected to see if we could place an NG tube in the patient I know it was difficult from the previous surgery that she had hiatal hernia repaired in fact in one of her surgeries I placed a gastrostomy tube anesthesia try to place a nasogastric tube it was un successful therefore we left that out I did not want open the in place another gastrostomy tube this time and felt that we needed to decompress her GI tract we will ask gastroenterology to place an NG tube with the endoscope prior to closing the subcutaneous tissue we placed 2 Pastor drains both lower aspect laterally to the incision these were 15 Pastor's position on the abdominal wall subcutaneously attaching skin edges 2-0 silk suture we then used 2-0 Vicryl suture to tack down the subcutaneous fatty tissue onto the mesh first interrupted in multiple areas then continuous fashion subcutaneous marilou for skin edges dressing was applied procedure was tolerated well by the patient estimate blood loss 100 cc AddendumB Kassie singh was present the whole time helped the retraction exposure wound closure Addendum spoke with her Spike at [phone] Surgeon Alberto Beckham MD, FACS Banking Consultant Brodie SINGH Estimated Blood Loss 100 Findings Consistent with Post-Op Diagnosis Multiple fenestration in the abdominal wall adhesions Specimens Hernial sacs Drains 2 Pastor drains 15 subcutaneously Description of Procedure merda I attest to the content of the Intraoperative Record and any orders documented therein. Any exceptions are noted below.
[2021-10-23] MEDS ORDERED: SODIUM CHLORIDE 0.9% 50 ML BAG ONE ×2 (10:31→11:19)
[2021-10-23] MEDS ORDERED: PROMETHAZINE HCL INJ 25 MG/ML 1 ML VIAL ONE (10:31)
[2021-10-23] MEDS: fentaNYL citrate 100 MCG/2 ML VIAL IV PRN ×4 (10:32→10:56)
[2021-10-23] MEDS: HYDROmorphone INJ 1 MG/ML SYRINGE IV PRN ×5 (11:02→11:33)
[2021-10-23] MEDS ORDERED: LARYING-O-JET KIT (LTA) ONE (11:46)
--- NOTE | 2021-10-23 12:01 | Anesthesiology Progress Note ---
Date of Service October 23, 2021 Anesthesia Post Procedure Vital Signs Vital Signs: Temp Pulse Pulse Resp BP Pulse Ox 10/23/21 11:45 36.3 C L 85 13 113/59 L 97 10/23/21 11:35 86 12 103/60 96 10/23/21 11:25 82 12 104/63 96 10/23/21 11:15 84 13 117/62 95 10/23/21 11:05 87 17 126/65 97 10/23/21 10:55 92 H 13 126/61 95 10/23/21 10:45 98 H 23 148/77 H 94 10/23/21 10:35 87 13 129/68 94 10/23/21 10:25 90 18 138/71 94 10/23/21 10:15 36.5 C 94 H 13 119/82 97 10/23/21 05:31 37.3 C 84 18 143/78 H 94 Pain Intensity Abdomen: Pain Intensity: 7 Transfer of Care Handoff Completed per policy Notes Mental Status: alert / awake / arousable Patient Amnestic to Procedure: Yes Nausea / Vomiting: adequately controlled Pain: adequately controlled Airway Patency, RR, SpO2: stable & adequate BP & HR: stable & adequate Hydration State: stable & adequate Anesthetic Complications: no major complications apparent
[2021-10-23] MEDS ORDERED: SODIUM CHLORIDE 0.9% 1000ML 1,000 ML IV SCH (12:10)
[2021-10-23] MEDS: LACTATED RINGER'S 1,000 ML IV SCH ×2 (13:19→20:58)
[2021-10-23] MEDS: ceFAZolin 2000MG 2,000 MG/15 ML SYR IV SCH ×2 (17:15→23:45)
[2021-10-23] MEDS: ACETAMINOPHEN 1000 MG/100 ML IV IV SCH ×2 (17:16→23:47)
[2021-10-23] MEDS: MoRPHine SULFATE PCA 30 MG/30 ML IV PRN (21:49)
[2021-10-23] MEDS: PANTOprazole 40 MG TAB PO SCH (22:08)
[2021-10-24] MEDS: LACTATED RINGER'S 1,000 ML IV SCH ×3 (04:33→19:39)
[2021-10-24] MEDS: ACETAMINOPHEN 1000 MG/100 ML IV IV SCH ×2 (07:42→15:44)
[2021-10-24] MEDS: ceFAZolin 2000MG 2,000 MG/15 ML SYR IV SCH ×2 (07:42→15:44)
[2021-10-24] MEDS: amLODIPine BESYLATE 5 MG TAB PO SCH (07:43)
[2021-10-24] MEDS: PANTOprazole 40 MG TAB PO SCH ×2 (07:43→21:42)
[2021-10-24 07:54] LABS: Basophils # (auto) 0.01 K/uL (0-0.2); Basophils % (auto) 0.1 %; Eosinophils # (auto) 0.12 K/uL (0-0.5); Eosinophils % (auto) 1.3 %; Hematocrit (blood only) 35.6 % (37-47); Hemoglobin 11.9 g/dL (12.0-16.0); Immature Granulocytes # (auto) 0.02 K/uL (0.00-0.02); Immature Granulocytes % (auto) 0.2 %; Lymphocytes # (auto) 1.04 K/uL (1.2-3.4); Lymphocytes % (auto) 11.6 %; Mean Corpuscular Hemoglobin 30.2 pg (25-34); Mean Corpuscular Hgb Conc 33.4 g/dL (32-36); Mean Corpuscular Volume 90.4 fL (80-100); Mean Platelet Volume 9.6 fL (7.4-10.4); Monocytes # (auto) 0.67 K/uL (0.11-0.59); Monocytes % (auto) 7.4 %; Neutrophils # (auto) 7.14 K/uL (1.4-6.5); Neutrophils % (auto) 79.4 %; Platelet Count 205 K/uL (130-400); RDW Coefficient of Variation 12.1 % (11.5-14.5); RDW Standard Deviation 39.9 fL (36.4-46.3); Red Blood Count 3.94 M/uL (4.2-5.4)
[2021-10-24 08:20] LABS: BUN Creatinine Ratio 10.2 (10-20); Calcium 8.3 mg/dl (8.5-10.1); Est GFR (African American) 79.4 ml/min; Est GFR (Non-African American) 68.5 ml/min; Potassium 3.2 mmol/L (3.5-5.1)
--- NOTE | 2021-10-24 08:32 | Surgery Progress Note ---
Date of Service October 24, 2021 Assessment & Plan (1) Hernia of abdominal wall: Plan: POD#1 status post compartment separation repair multiple incisional hernia with Ovitex mesh Intraoperative findings and repair of hernia was explained to the patient I will add an abdominal binder to give her more support and postoperative. We will DC the Kamara catheter and started on clear liquids Anticipate she probably will be here over the weekend Dr. Lou covering the weekend Plan: DC Kamara catheter start clear liquid diet place abdominal binder Admission and Anticipated Discharge Date Admission Date: October 23, 2021 Subjective Patient states overall she is doing well is try to keep pain controlled with the IV analgesics denies any nausea is taking water without any issues Physical Exam Physical Exam: Is alert coherent resting comfortable in bed The abdomen the dressing is dry Pastor drainage minimal serosanguineous drainage The abdomen overall is soft with some postoperative tenderness along the incision Results & Data ([facility]) Vital Signs (Past 12 Hours) Vital Signs Temp Pulse Pulse Resp BP Pulse Ox 10/24/21 07:40 16 10/24/21 07:30 36.8 C 79 8 L 114/63 93 10/24/21 03:34 36.6 C 76 18 117/66 95 10/23/21 23:22 36.8 C 81 18 116/66 92 Laboratory Results Noted PG Care Time/CCT Total # of Minutes Spent Total Time Spent with Patient: Total time spent is greater than 50% in coordination of care (as documented) at patient's floor/unit and/or counseling patient: Coding Level of Care Code None Diagnoses Hernia of abdominal wall K43.9
[2021-10-24] MEDS: MoRPHine SULFATE PCA 30 MG/30 ML IV PRN (13:40)
[2021-10-25] MEDS: ceFAZolin 2000MG 2,000 MG/15 ML SYR IV SCH ×3 (00:11→17:35)
[2021-10-25] MEDS: ACETAMINOPHEN 1000 MG/100 ML IV IV SCH ×3 (00:12→17:35)
[2021-10-25] MEDS: LACTATED RINGER'S 1,000 ML IV SCH (03:44)
[2021-10-25 06:45] LABS: Basophils # (auto) 0.01 K/uL (0-0.2); Basophils % (auto) 0.1 %; Eosinophils # (auto) 0.26 K/uL (0-0.5); Eosinophils % (auto) 3.4 %; Hematocrit (blood only) 35.7 % (37-47); Hemoglobin 11.7 g/dL (12.0-16.0); Immature Granulocytes # (auto) 0.02 K/uL (0.00-0.02); Immature Granulocytes % (auto) 0.3 %; Lymphocytes # (auto) 1.32 K/uL (1.2-3.4); Lymphocytes % (auto) 17.1 %; Mean Corpuscular Hemoglobin 30.4 pg (25-34); Mean Corpuscular Hgb Conc 32.8 g/dL (32-36); Mean Corpuscular Volume 92.7 fL (80-100); Mean Platelet Volume 9.7 fL (7.4-10.4); Monocytes # (auto) 0.81 K/uL (0.11-0.59); Monocytes % (auto) 10.5 %; Neutrophils # (auto) 5.29 K/uL (1.4-6.5); Neutrophils % (auto) 68.6 %; Platelet Count 170 K/uL (130-400); RDW Coefficient of Variation 12.6 % (11.5-14.5); RDW Standard Deviation 42.5 fL (36.4-46.3); Red Blood Count 3.85 M/uL (4.2-5.4); White Blood Count 7.71 K/uL (4.8-10.8)
[2021-10-25] MEDS: MoRPHine SULFATE PCA 30 MG/30 ML IV PRN ×2 (06:53→10:29)
[2021-10-25 07:04] LABS: BUN Creatinine Ratio 8.5 (10-20); Creatinine Clr Calc Pharmacy 62.3 ml/min; Est GFR (African American) 86.4 ml/min; Est GFR (Non-African American) 74.6 ml/min; Potassium 2.7 mmol/L (3.5-5.1)
[2021-10-25] MEDS: SODIUM CHLOR 0.45% + 20MEQ KCL 20 MEQ/1,000 ML BAG IV SCH ×2 (08:40→20:46)
[2021-10-25] MEDS: POTASSIUM CHLORIDE / WTR 10 MEQ/100 ML PLCT IV SCH ×2 (08:40→14:06)
[2021-10-25] MEDS: ONDANSETRON INJ 2 MG/ML 2 ML VIAL IV PRN ×2 (08:41→15:05)
[2021-10-25] MEDS: amLODIPine BESYLATE 5 MG TAB PO SCH (08:42)
[2021-10-25] MEDS: PANTOprazole 40 MG TAB PO SCH ×2 (08:42→20:47)
[2021-10-25] MEDS ORDERED: guaiFENesin 600 MG TABCR PO PRN (09:33)
--- NOTE | 2021-10-25 11:03 | Surgery Progress Note ---
Date of Service October 25, 2021 Assessment & Plan (1) Hernia of abdominal wall: Plan: POD#2 status post compartment separation repair multiple incisional hernia with ovitex mesh WBC 7.7, K: 2.7 will replete Advance to full liquid diet Continue BUSINESS PROCESS REPRESENTATIVE for pain MARILYN drain serosang, keep in place Work on ambulation and pulmonary toilet as above. doing as expected. MARILYN serous. continue to ambulate. pain control. Admission and Anticipated Discharge Date Admission Date: October 23, 2021 Subjective Patient having abdominal discomfort. Asking for a smaller abdominal binder. + small BM Physical Exam Physical Exam: awake/alert, walking slowly from bathroom Gastrointestinal (Abdomen): + abdominal binder in place. per financial systems administrator looks well. MARILYN Serosang Results & Data ([facility]) Vital Signs (Past 12 Hours) Vital Signs Temp Pulse Resp BP BP Pulse Ox 10/25/21 10:49 36.3 C L 82 16 127/68 90 10/25/21 07:30 36.7 C 85 16 109/69 90 10/25/21 03:00 37.0 C 82 16 123/76 91 PG Care Time/CCT Total # of Minutes Spent Total Time Spent with Patient: Total time spent is greater than 50% in coordination of care (as documented) at patient's floor/unit and/or counseling patient: Coding Level of Care Code None Diagnoses Hernia of abdominal wall K43.9
[2021-10-26] MEDS: ceFAZolin 2000MG 2,000 MG/15 ML SYR IV SCH ×4 (00:39→23:55)
[2021-10-26] MEDS: ACETAMINOPHEN 1000 MG/100 ML IV IV SCH ×2 (00:40→09:07)
[2021-10-26] MEDS: SODIUM CHLOR 0.45% + 20MEQ KCL 20 MEQ/1,000 ML BAG IV SCH (06:15)
[2021-10-26 07:46] LABS: Basophils # (auto) 0.01 K/uL (0-0.2); Basophils % (auto) 0.2 %; Eosinophils # (auto) 0.24 K/uL (0-0.5); Eosinophils % (auto) 3.7 %; Hematocrit (blood only) 36.5 % (37-47); Hemoglobin 12.2 g/dL (12.0-16.0); Immature Granulocytes # (auto) 0.01 K/uL (0.00-0.02); Immature Granulocytes % (auto) 0.2 %; Lymphocytes # (auto) 1.06 K/uL (1.2-3.4); Lymphocytes % (auto) 16.5 %; Mean Corpuscular Hemoglobin 30.5 pg (25-34); Mean Corpuscular Hgb Conc 33.4 g/dL (32-36); Mean Corpuscular Volume 91.3 fL (80-100); Mean Platelet Volume 9.7 fL (7.4-10.4); Monocytes # (auto) 0.56 K/uL (0.11-0.59); Monocytes % (auto) 8.7 %; Neutrophils # (auto) 4.54 K/uL (1.4-6.5); Neutrophils % (auto) 70.7 %; Platelet Count 196 K/uL (130-400); RDW Coefficient of Variation 12.3 % (11.5-14.5); RDW Standard Deviation 41.6 fL (36.4-46.3); White Blood Count 6.42 K/uL (4.8-10.8)
[2021-10-26 08:15] LABS: BUN Creatinine Ratio 6.9 (10-20); Calcium 8.2 mg/dl (8.5-10.1); Creatinine Clr Calc Pharmacy 70.9 ml/min; Est GFR (African American) 101.1 ml/min; Est GFR (Non-African American) 87.3 ml/min; Potassium 3.2 mmol/L (3.5-5.1)
[2021-10-26] MEDS ORDERED: oxyCODONE/ACETAMINOPHEN 5mg/325mg TAB PO PRN (08:59)
[2021-10-26] MEDS ORDERED: POTASSIUM CHLORIDE CRTAB 20 MEQ TABCR PO STA (08:59)
[2021-10-26] MEDS ORDERED: MoRPHine SULFATE 2 MG/ML CARP IV PRN (08:59)
[2021-10-26] MEDS ORDERED: MoRPHine SULFATE 4 MG/ML 1 ML CARP\\VIAL IV PRN (08:59)
[2021-10-26] MEDS ORDERED: IBUPROFEN 200 MG TAB PO PRN (09:02)
--- NOTE | 2021-10-26 09:04 | Surgery Progress Note ---
Date of Service October 26, 2021 Assessment & Plan (1) Hernia of abdominal wall: Plan: POD 3 hernia repair/component separation d/c TERMITE INSPECTOR and Ofirmev prn morphine, Percocet and ibuprofen advance diet as red K+ 3.2, decrease IVF, po supplement continue ancef, drains seen with Dr. Lou Admission and Anticipated Discharge Date Admission Date: October 23, 2021 Subjective bowels moved although had some nausea last night and not much appetite, using TERMITE INSPECTOR less Physical Exam Gastrointestinal (Abdomen): Inspection/Auscultation: + abdominal surgical incision (dry, no erythema) and + abdominal surgical drain present (left 5 cc, right 10 cc overnight); abdomen not distended Percussion/Palpation: abdomen soft Results & Data ([facility]) Vital Signs (Past 12 Hours) Vital Signs Temp Pulse Resp BP BP Pulse Ox 10/26/21 06:59 36.6 C 86 16 105/66 92 10/26/21 03:27 36.8 C 82 18 123/73 94 10/25/21 22:33 36.8 C 83 18 114/72 91 PG Care Time/CCT Total # of Minutes Spent Total Time Spent with Patient: Total time spent is greater than 50% in coordination of care (as documented) at patient's floor/unit and/or counseling patient: Coding Level of Care Code None Diagnoses Hernia of abdominal wall K43.9
[2021-10-26] MEDS: PANTOprazole 40 MG TAB PO SCH ×2 (09:06→20:26)
[2021-10-26] MEDS: amLODIPine BESYLATE 5 MG TAB PO SCH (09:06)
[2021-10-26] MEDS: oxyCODONE/ACETAMINOPHEN 5mg/325mg TAB PO PRN ×2 (15:18→20:25)
[2021-10-27] MEDS: SODIUM CHLOR 0.45% + 20MEQ KCL 20 MEQ/1,000 ML BAG IV SCH (00:23)
[2021-10-27] MEDS: oxyCODONE/ACETAMINOPHEN 5mg/325mg TAB PO PRN ×4 (00:27→21:11)
--- NOTE | 2021-10-27 07:09 | Surgery Progress Note ---
Date of Service October 27, 2021 Assessment & Plan (1) Hernia of abdominal wall: Plan: POD#4 discussed with the patient that most likely should be ready to go home tomorrow We will take her off oxygen today increase her activity Most likely take one of the 2 Pastor drains tomorrow We will check a urine today lab pending POD 3 hernia repair/component separation d/c ORTHOPEDICS NURSE and Ofirmev prn morphine, Percocet and ibuprofen advance diet as red K+ 3.2, decrease IVF, po supplement continue ancef, drains seen with Dr. Lou Admission and Anticipated Discharge Date Admission Date: October 23, 2021 Subjective 10/27/21 he states that she ate a regular meal last night without any nausea her only issue was that during the night she felt a little bit hot and early this morning she needed to take a Percocet She is voiding frequent amounts she does have some urinary frequency bowels moved although had some nausea last night and not much appetite, using ORTHOPEDICS NURSE less Physical Exam Physical Exam: 10/27/21 resting comfortably in bed no acute issues this morning still on O2 at 3 L/min The abdomen once the abdominal binder was removed was soft no tenderness the incision is healing well no redness Pastor drainage bilaterally very minimal serosanguineous No pedal edema Is alert coherent resting comfortable in bed The abdomen the dressing is dry Pastor drainage minimal serosanguineous drainage The abdomen overall is soft with some postoperative tenderness along the incision Results & Data ([facility]) Vital Signs (Past 12 Hours) Vital Signs Temp Pulse Resp BP Pulse Ox 10/26/21 21:54 37.6 C H 91 H 18 146/81 H 94 PG Care Time/CCT Total # of Minutes Spent Total Time Spent with Patient: Total time spent is greater than 50% in coordination of care (as documented) at patient's floor/unit and/or counseling patient: Coding Level of Care Code None Diagnoses Hernia of abdominal wall K43.9
[2021-10-27] MEDS: PANTOprazole 40 MG TAB PO SCH ×2 (08:10→20:22)
[2021-10-27] MEDS: amLODIPine BESYLATE 5 MG TAB PO SCH (08:10)
[2021-10-27 20:14] LABS: Appearance Urine Clear (Clear); Bacteria Urine Automated Negative (Negative); Bilirubin Urine Negative (Negative); Blood Urine Negative (Negative); Color Urine Yellow; Epithelial Cell Urine Auto >30 /lpf (0-5); Glucose Urine UA Negative (Negative); Ketones Urine Trace (Negative); Leukocyte Esterase Urine Negative (Negative); Nitrite Urine Negative (Negative); Protein Urine Trace (Negative); RBC Urine Automated 0-4 /hpf (0-4); Specific Gravity Urine 1.011 (1.000-1.030); Urobilinogen Urine Negative (Negative); pH Urine 7.5 (4.5-7.5)
[2021-10-28] MEDS: oxyCODONE/ACETAMINOPHEN 5mg/325mg TAB PO PRN (06:38)
--- NOTE | 2021-10-28 07:04 | Surgery Progress Note ---
Date of Service October 28, 2021 Assessment & Plan (1) Hernia of abdominal wall: Plan: POD#5 the left lower quadrant drain was removed Left the midline incision without any dressing dressing was applied around the right lower quadrant At this point the patient can be discharged home some Tylenol should be sufficient for pain but will give her a few Percocets in case she is uncomfortable The lab is pending this morning Urinalysis report seen The patient can shower no bathing change dressing around the Pastor drain as needed no lifting greater than 10 pounds and we will see her back in the office on Wednesday to call to make an appointment Before discharge we will make sure that her potassium was fine in case she would need a prescription for that POD#4 discussed with the patient that most likely should be ready to go home tomorrow We will take her off oxygen today increase her activity Most likely take one of the 2 Pastor drains tomorrow We will check a urine today lab pending POD 3 hernia repair/component separation d/c ABSTRACT MAKER and Ofirmev prn morphine, Percocet and ibuprofen advance diet as red K+ 3.2, decrease IVF, po supplement continue ancef, drains seen with Dr. Lou Admission and Anticipated Discharge Date Admission Date: October 23, 2021 Subjective 10/28/21 overall she seems to be doing better she has been up and around she states that she had a little reaction to the binder in the back and the lower rib cage She tolerated a regular diet and she continues moving her bowels 10/27/21 he states that she ate a regular meal last night without any nausea her only issue was that during the night she felt a little bit hot and early this morning she needed to take a Percocet She is voiding frequent amounts she does have some urinary frequency bowels moved although had some nausea last night and not much appetite, using ABSTRACT MAKER less Physical Exam Physical Exam: She is resting comfortably in bed The abdomen is soft nondistended incisions intact without any drainage or cellulitis The Pastor drain on the right side at 15 cc there was no drainage from the left side and the consistency is serous slightly sanguinous She has some patches 2 to 3 cm in size on both lower rib cage almost symmetrical red not raised with no cellulitis Results & Data ([facility]) Vital Signs (Past 12 Hours) Vital Signs Temp Pulse Resp BP Pulse Ox 10/27/21 22:53 36.8 C 92 H 18 125/75 94 PG Care Time/CCT Total # of Minutes Spent Total Time Spent with Patient: Total time spent is greater than 50% in coordination of care (as documented) at patient's floor/unit and/or counseling patient: Coding Level of Care Code None Diagnoses Hernia of abdominal wall K43.9
[2021-10-28] MEDS: amLODIPine BESYLATE 5 MG TAB PO SCH (07:50)
[2021-10-28] MEDS: PANTOprazole 40 MG TAB PO SCH (07:50)
[2021-10-28 07:54] LABS: Basophils # (auto) 0.01 K/uL (0-0.2); Basophils % (auto) 0.2 %; Eosinophils # (auto) 0.24 K/uL (0-0.5); Eosinophils % (auto) 4.4 %; Hematocrit (blood only) 37.1 % (37-47); Hemoglobin 12.4 g/dL (12.0-16.0); Immature Granulocytes # (auto) 0.03 K/uL (0.00-0.02); Immature Granulocytes % (auto) 0.5 %; Lymphocytes # (auto) 0.99 K/uL (1.2-3.4); Lymphocytes % (auto) 18.1 %; Mean Corpuscular Hemoglobin 30.2 pg (25-34); Mean Corpuscular Hgb Conc 33.4 g/dL (32-36); Mean Corpuscular Volume 90.3 fL (80-100); Mean Platelet Volume 9.6 fL (7.4-10.4); Monocytes # (auto) 0.55 K/uL (0.11-0.59); Monocytes % (auto) 10.1 %; Neutrophils # (auto) 3.65 K/uL (1.4-6.5); Neutrophils % (auto) 66.7 %; Platelet Count 265 K/uL (130-400); RDW Coefficient of Variation 12.1 % (11.5-14.5); RDW Standard Deviation 39.6 fL (36.4-46.3); Red Blood Count 4.11 M/uL (4.2-5.4); White Blood Count 5.47 K/uL (4.8-10.8)
[2021-10-28 08:16] LABS: BUN Creatinine Ratio 8.7 (10-20); Calcium 8.5 mg/dl (8.5-10.1); Est GFR (African American) 105.1 ml/min; Est GFR (Non-African American) 90.7 ml/min
[2021-10-28] MEDS ORDERED: POTASSIUM CHLORIDE CRTAB 20 MEQ TABCR PO STA (08:35)
--- NOTE | 2021-10-29 14:34 | Discharge Summary ---
Date of Service October 29, 2021 Principal Diagnosis Multiple incisional hernias Discharge Exam Constitutional WD/WN, vitals as above Gastrointestinal (Abdomen) Inspection/Auscultation: + abdominal surgical incision (dry) and + abdominal surgical drain present (RLQ); abdomen not distended Percussion/Palpation: abdomen soft Discharge Data Allergies Allergy/AdvReac Type Severity Reaction Status Date / Time pneumococcal vaccine AdvReac Intermediate Severe Verified 10/23/21 12:31 swell/redness AT INJECTION SITE amoxicillin AdvReac Mild Diarrhea Verified 10/23/21 12:31 cephalexin AdvReac Mild Diarrhea Verified 10/23/21 12:31 Procedures Performed Operation Date: 10/23/21 07:00 Actual Procedures p Open Multiple Incisional Hernia Repair with Compartmental Seperation and Ovitex Mesh (Not Applicable) - Alberto Beckham MD, [facility] Hospital Course (1) Hernia of abdominal wall: 66 y/o female with history of diverticulitis and protective ileostomy now with incisional hernias of the midline and RLQ. She was taken to the operating room for repair with compartment separation and 20x20 cm Ovitex mesh. She was transferred to the surgical floor with. The next morning pedraza cath was removed and she was started on a liquid diet. 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 She was able to advance diet although had some nausea with that. By day 3 her bowels were moving and her appetite began to improve. She was transitioned to po analgesics. On day 5 she was stable for discharge home. One of two Pastor drains was removed before discharge and the remaining drain will be removed in clinic. Total Time Total Time Spent Total Time Spent (In Minutes): 15 Discharge Plan Discharge Items Patient Disposition: Home - Self-Care Reason For Visit: [facility] Discharge Diagnosis: incisional hernia repair Activity: Per Instructions section Lifting: No more than 10 pounds Bathing Comment: may shower; no soaking in tubs/pools Exercise/Sports: Wait until after follow-up appointment Driving/Machine Use: wait until cleared by surgeon; no driving while taking narcotics for pain Non-emergency contact: Surgeon Call non-emergency contact if: you have any medication questions, your symptoms worsen, your pain is unusual for you, your pain is concerning for you, you have a fever, your temperature is above 101.5, your wound has increased redness, your wound has increased drainage and your wound pain has increased Follow-up/Referrals: Alberto Beckham MD, FACS [Surgeon] - 11/04/21 2:45 pm (Please call to schedule follow up in clinic next Wednesday (11/04/21)) Dara Trejo DO [Primary Care Provider] - Diet: Regular Addtl Attending Provider Instructions: Please care for your surgical drain as you have been instructed prior to discharge from the hospital. Empty drain 2-3x/daily and record output. You have surgical marilou in place that will be removed at one of your follow up appointments You may cover the incision where your drain was with dry 4x4 gauze and medical tape and change dressing daily and as needed until the wound has healed and is no longer draining You may continue to wear your abdominal binder at home You have been prescribed a narcotic called Percocet if needed for moderate to severe pain. Do not take Percocet and Tylenol together as they both contain Acetaminophen and you should NOT exceed >3grams of Acetaminophen within a 24 hour time period. You have been prescribed a 3 day course of potassium to take for low potassium levels noted during your hospitalization Pending Studies at Discharge: No Stand-Alone Forms: My [facility] [address] [employer] Medications and DC Order Prescriptions: New oxycodone-acetaminophen [Percocet] 5-325 mg tablet 1 - 2 tab PO .q4-6h PRN (Reason: pain, for initial therapy, max 6 tabs per day) Qty: 10 RF: 0 potassium chloride 20 mEq tablet extended release 20 meq PO TID 3 Days Qty: 9 RF: 0 Continued cholecalciferol (vitamin D3) 5,000 unit tablet 5,000 unit PO QAM RF: 0 amlodipine 5 mg tablet 10 mg PO QAM RF: 0 multivitamin tablet 1 tab PO QAM RF: 0 pantoprazole 40 mg tablet,delayed release (DR/EC) 40 mg PO BID RF: 0 ferrous sulfate 325 mg (65 mg iron) tablet 325 mg PO QAM RF: 0 Sutab 1.479-0.188- 0.225 gram tablet 12 tab PO BID Qty: 24 RF: 0 valacyclovir [Valtrex] 500 mg Tablet 1,000 mg PO UD PRN (Reason: Cold Sores) RF: 0 Calcium 600 + D(3) 600 mg calcium- 200 unit Capsule 1 cap PO QAM RF: 0 ibuprofen 400 mg Tablet 400 mg PO UD PRN (Reason: Pain) RF: 0 cholestyramine (with sugar) 4 gram powder in packet 1 ea PO QAM RF: 0 Inflectra 100 mg recon soln 100 mg IV Q8WK RF: 0 Discontinued hydrocodone-acetaminophen 5-325 mg tablet 1 tab PO UD PRN (Reason: Pain) RF: 0 metronidazole 500 mg tablet 500 mg PO UD RF: 0 neomycin 500 mg tablet 1 g PO UD RF: 0 Discharge Orders: Discharge Order (Routine); Ordered 10/28/21 Ordered By: Millie Cortes Admission Data Admit Date/Time: 10/23/21 10:28 Attending Provider: Alberto Beckham Admit Provider: Alberto Beckham Primary Care Provider: Dara Trejo Other Interventions: Discharge Summary Assessment (RN) Last Done: 10/28/21 09:41 Coding Level of Care Code D/C DAY MANAGEMENT <30 MINS Diagnoses Hernia of abdominal wall K43.9
== END 2021-10-28 11:40 | disposition home or self-care (01) | DRG 354 ==
LOC: ASU 05:11 → 3N 10:28